=== PATIENT | female | born 1935 | race Caucasian/White ===

== ENCOUNTER 2017-09-20 09:09 | Inpatient (IN) | payer MEDICARE ==
[2017-09-20] MEDS ORDERED: Acetaminophen/HYDROcodone 325-5 MG Tab PO PRN ×3 (12:48→16:50)
--- NOTE | 2017-09-20 16:50 | PCM.HP ---
H&P History of Present Illness - General Date of Service: 09/20/17 Admit Problem/Dx: Admission Diagnosis/Problem Admission Diagnosis/Problem Rehabilitation therapy Source of Information: Patient, Other History Limitations: Reports: No Limitations - History of Present Illness Initial Comments - Free Text/Narative: This is an 81-year-old female patient had a left shoulder torn rotator cuff that was loose and a status post left total shoulder arthroplasty revision with conversion to left reversal total surgery arthroplasty. This is on the left shoulder. She was operated by Dr. Ramin Valencia. She transferred down here for rehabilitation. She was alone at not able to take her cell because of her arm. She states her pain is under control. Left arm is in a sling. She denies any issues today. Left Upper Shoulder Pain Score (Numeric/FACES): 0 - Related Data Allergies/Adverse Reactions: Allergies Allergy/AdvReac Type Severity Reaction Status Date / Time Penicillins Allergy Intermediate Headache Verified 08/07/13 19:09 oxycodone [Oxycodone] Allergy Mild Lethargy Verified 08/07/13 19:10 cyclobenzaprine HCl Allergy Ringing in Verified 03/27/14 16:06 [From Flexeril] the Ears Home Medications: Home Meds Escitalopram [Lexapro] 20 mg PO DAILY 03/27/14 [History] Furosemide [Lasix] 40 mg PO BID 03/27/14 [History] Gabapentin [Neurontin] 600 mg PO QID 03/27/14 [History] Latanoprost [Xalatan 0.005% Ophth Soln] 1 drop EYEBOTH BEDTIME 03/27/14 [History ] Multivitamin [Daily Vitamin] 1 each PO DAILY 03/27/14 [History] Potassium Chloride 10 meq PO BIDM 03/27/14 [History] Valsartan [Diovan] 80 mg PO DAILY 03/27/14 [History] Omeprazole 20 mg PO 0600 #30 cap.sr 04/09/14 [Rx] Acetaminophen [Tylenol Extra Strength] 500 mg PO QID PRN 09/20/17 [History] Allopurinol [Zyloprim] 100 mg PO DAILY 09/20/17 [History] Ascorbate Calcium [Vitamin C] 500 mg PO DAILY 09/20/17 [History] Aspirin [Halfprin] 81 mg PO DAILY 09/20/17 [History] Carisoprodol 350 mg PO BEDTIME 09/20/17 [History] Celecoxib [CeleBREX] 200 mg PO BID 09/20/17 [History] Cyanocobalamin (Vitamin B-12) [B-12] 1,000 mcg PO DAILY 09/20/17 [History] Enoxaparin [Lovenox] 80 mg SQ Q12H 09/20/17 [History] Hydrocodone/Acetaminophen [Hydrocodon-Acetaminophen 5-325] 1 each PO Q4H PRN [History] Hydrocodone/Acetaminophen [Hydrocodon-Acetaminophen 5-325] 2 tab PO Q4H PRN [History] Metoprolol Succinate [Toprol XL] 50 mg PO BID 09/20/17 [History] Polyethylene Glycol 3350 [MiraLAX] 17 gm PO DAILY 09/20/17 [History] Sennosides/Docusate Sodium [Senna S Tablet] 1 each PO BID 09/20/17 [History] Warfarin [Coumadin] 2 mg PO SUTUTHFRSA 09/20/17 [History] Warfarin [Coumadin] 3 mg PO MOWE 09/20/17 [History] traMADol [Ultram] 50 mg PO Q8H PRN 09/20/17 [History] traZODone 50 mg PO BEDTIME 09/20/17 [History] Past Medical History HEENT History: Reports: Cataract, Glaucoma, Hard of Hearing, Impaired Vision Cardiovascular History: Reports: Blood Clots/VTE/DVT, Hypertension, [place], SOB on Exertion Genitourinary History: Reports: Acute Renal Failure, Urinary Incontinence, Other (See Below) Other Genitourinary History: stage 3 kidney disease [employer] History: Reports: Fibroids, Musculoskeletal History: Reports: Arthritis, Back Pain, Chronic, Fibromyalgia, Gout, Osteoarthritis, Osteoporosis Psychiatric History: Reports: Depression, Panic Attack Endocrine/Metabolic History: Reports: Obesity/BMI 30+ Hematologic History: Reports: Anemia Dermatologic History: Reports: Angiodema - Infectious Disease History Infectious Disease History: Reports: Chicken Pox, Hepatitis A, Influenza, Measles, MRSA, Mumps, Rubella - Past Surgical History HEENT Surgical History: Reports: Cataract Surgery, Laser Surgery, Tonsillectomy Female Surgical History: Reports: Hysterectomy Musculoskeletal Surgical History: Reports: Arthroscopic Knee, Arthroscopic Procedure, Joint Replacement, Knee Replacement, Other (See Below) Other Musculoskeletal Surgeries/Procedures:: 5 TKR in left and 2TKR in right Social & Family History - Family History HEENT: Reports: Hearing Impairment Musculoskeletal: Reports: Arthritis, Back pain, Chronic, Fibromyalgia, Osteoarthritis, Osteoporosis Endocrine/Metabolic: Reports: Diabetes, type II Oncologic: Reports: Breast Other Oncologic Family History: Her mother had 4 out 6 girls with breast cancer. - Tobacco Use Smoking Status *Q: Never Smoker Second Hand Smoke Exposure: Yes - Caffeine Use Caffeine Use: Reports: Coffee - Alcohol Use Days Per Week of Alcohol Use: 0 - Recreational Drug Use Recreational Drug Use: No H&P Review of Systems - Review of Systems: Review Of Systems: See Below General: Reports: No Symptoms HEENT: Reports: No Symptoms Pulmonary: Reports: No Symptoms Cardiovascular: Reports: No Symptoms Gastrointestinal: Reports: No Symptoms Genitourinary: Reports: No Symptoms Musculoskeletal: Reports: Shoulder Pain Skin: Reports: No Symptoms Psychiatric: Reports: No Symptoms Neurological: Reports: No Symptoms Hematologic/Lymphatic: Reports: Easy Bleeding (On Coumadin) Immunologic: Reports: No Symptoms Exam - Exam Exam: See Below - Vital Signs Vital Signs: Last Vital Signs Temp 98.6 F 09/20/17 12:15 Pulse 66 09/20/17 12:15 Resp 16 09/20/17 12:15 BP 112/45 L 09/20/17 12:15 Pulse Ox 92 L 09/20/17 12:15 Weight: 221 lb - Exam General: Alert, Oriented, Cooperative HEENT: Hearing Intact, Mucosa Moist & [place], Posterior Pharynx Clear Neck: Supple, Trachea Midline. No: Carotid Bruit, JVD Lungs: Clear to Auscultation, Normal Respiratory Effort. No: Crackles, Rales, Rhonchi Cardiovascular: Regular Rate, Regular Rhythm. No: Systolic Murmur, Diastolic Murmur GI/Abdominal Exam: Normal Bowel Sounds, Soft, Non-Tender, No Organomegaly, No Distention, No Abnormal Bruit, No Mass Back Exam: Normal Inspection Extremities: Other (Left arm is in a shoulder immobilizer. Not examined.) Skin: Warm Neuro Extensive - Mental Status: Alert, Oriented x3, Normal Mood/Affect, Normal Cognition Psychiatric: Alert, Normal Affect, Normal Mood *Q Meaningful Use (ADM) - VTE *Q VTE Criteria *Q: - Stroke *Q Stroke Criteria *Q: - AMI *Q AMI Criteria *Q: - Problem List (1) Status post shoulder surgery SNOMED Code(s): 724752834, [id number] ICD Code: Z98.890 - OTHER SPECIFIED POSTPROCEDURAL STATES Status: Acute Current Visit: Yes Problem List Initiated/Reviewed/Updated: Yes Orders Last 24hrs: Active Orders 24 hr Category Date Time Status Admission Status [Patient Status] [ADT] Routine ADT 09/20/17 10:30 Active Activity as Tolerated [RC] .Routine Care 09/20/17 12:34 Active May Shower [RC] ASDIRECTED Care 09/21/17 06:00 Active Weight [Height and Weight] [RC] .qSun Care 09/20/17 13:42 Active Wound Care [RC] 08,16,00 Care 09/20/17 12:34 Active OT Evaluation and Treatment [CONS] Routine Cons 09/20/17 12:34 Active PT Evaluation and Treatment [CONS] Routine Cons 09/20/17 12:34 Active Regular Diet [DIET] Diet 09/20/17 Dinner Active Acetaminophen/HYDROcodone [Jackson 325-5 MG] Med 09/20/17 12:48 Active 1 tab PO Q3H PRN Acetaminophen/HYDROcodone [Jackson 325-5 MG] Med 09/20/17 12:49 Active 2 tab PO Q4H PRN Ice Therapy [OM.PC] Routine Oth 09/20/17 12:34 Ordered Medication Orders Hydrocodone Bitart/Acetaminophen (Jackson 325-5 Mg) 1 tab PO Q3H PRN PRN Reason: severe pain 0-3 Hydrocodone Bitart/Acetaminophen (Jackson 325-5 Mg) 2 tab PO Q4H PRN PRN Reason: Pain level 4-10 Assessment/Plan Comment:: Patient will be admitted to swing bed. She wants to be full code. Continue the same orders that she had a Valencia with her home medications and pain control with Tylenol and tramadol. She will have OT/PT.
[2017-09-20] MEDS ORDERED: Warfarin 2 MG Tab PO SCH (17:00)
[2017-09-20] MEDS: traMADol 50 MG Tab PO PRN (17:27)
[2017-09-20] MEDS: Furosemide 40 MG Tab PO SCH (17:27)
[2017-09-20] MEDS: Potassium Chloride 10 MEQ Tab.ER PO SCH (17:27)
[2017-09-20] MEDS: Gabapentin 600 MG Tab PO SCH ×2 (18:03→21:04)
[2017-09-20] MEDS: Acetaminophen/HYDROcodone 325-5 MG Tab PO PRN (21:03)
[2017-09-20] MEDS: Acetaminophen 500 MG Tab PO PRN (21:03)
[2017-09-20] MEDS: Metoprolol Succinate 50 MG Tab.ER PO SCH (21:05)
[2017-09-20] MEDS: Celecoxib 200 MG Cap PO SCH (21:06)
[2017-09-20] MEDS: traZODone 50 MG Tab PO SCH (21:07)
[2017-09-20] MEDS: Latanoprost 0.005% Ophth Soln 2.5 ML Bottle EYEBOTH SCH (21:08)
[2017-09-20] MEDS: Enoxaparin 80 MG/0.8 ML Syringe SUBCUT SCH (21:45)
[2017-09-21] MEDS: Pantoprazole 40 MG Tab.CR PO SCH (06:24)
[2017-09-21] MEDS: Potassium Chloride 10 MEQ Tab.ER PO SCH ×2 (08:12→17:14)
[2017-09-21] MEDS: Furosemide 40 MG Tab PO SCH ×2 (08:12→13:03)
[2017-09-21] MEDS: Ascorbic Acid 500 MG Tab PO SCH (08:21)
[2017-09-21] MEDS: Cyanocobalamin (Vitamin B12) 1,000 MCG Tab PO SCH (08:21)
[2017-09-21] MEDS: Allopurinol 100 MG Tab PO SCH (08:22)
[2017-09-21] MEDS: Celecoxib 200 MG Cap PO SCH ×2 (08:22→20:56)
[2017-09-21] MEDS: Escitalopram 20 MG Tab PO SCH (08:23)
[2017-09-21] MEDS: Gabapentin 600 MG Tab PO SCH ×4 (08:23→20:56)
[2017-09-21] MEDS: Aspirin 81 MG Tab.EC PO SCH (08:23)
[2017-09-21] MEDS: Metoprolol Succinate 50 MG Tab.ER PO SCH ×2 (08:24→20:57)
[2017-09-21] MEDS: Multivitamin Tab PO SCH (08:24)
[2017-09-21] MEDS: Polyethylene Glycol 3350 Powder 17 GM Packet PO SCH (08:28)
[2017-09-21] MEDS: traMADol 50 MG Tab PO PRN (08:35)
[2017-09-21] MEDS ORDERED: Warfarin Sliding Scale PO SCH (09:00)
[2017-09-21] MEDS: Enoxaparin 80 MG/0.8 ML Syringe SUBCUT SCH (14:43)
[2017-09-21] MEDS ORDERED: Warfarin 2 MG Tab PO SCH (16:00)
[2017-09-21] MEDS: Latanoprost 0.005% Ophth Soln 2.5 ML Bottle EYEBOTH SCH (20:56)
[2017-09-21] MEDS: traZODone 50 MG Tab PO SCH (20:56)
[2017-09-21] MEDS: Acetaminophen/HYDROcodone 325-5 MG Tab PO PRN (23:50)
[2017-09-22] MEDS: Pantoprazole 40 MG Tab.CR PO SCH (06:30)
[2017-09-22] MEDS: traMADol 50 MG Tab PO PRN ×2 (07:22→17:39)
[2017-09-22] MEDS: Potassium Chloride 10 MEQ Tab.ER PO SCH ×2 (07:29→17:39)
[2017-09-22] MEDS: Furosemide 40 MG Tab PO SCH ×2 (07:29→15:37)
[2017-09-22] MEDS: Celecoxib 200 MG Cap PO SCH ×2 (08:46→21:34)
[2017-09-22] MEDS: Escitalopram 20 MG Tab PO SCH (08:47)
[2017-09-22] MEDS: Aspirin 81 MG Tab.EC PO SCH (08:47)
[2017-09-22] MEDS: Multivitamin Tab PO SCH (08:48)
[2017-09-22] MEDS: Gabapentin 600 MG Tab PO SCH ×4 (08:48→21:34)
[2017-09-22] MEDS: Metoprolol Succinate 50 MG Tab.ER PO SCH ×2 (08:48→21:34)
[2017-09-22] MEDS: Cyanocobalamin (Vitamin B12) 1,000 MCG Tab PO SCH (08:49)
[2017-09-22] MEDS: Allopurinol 100 MG Tab PO SCH (08:49)
[2017-09-22] MEDS: Ascorbic Acid 500 MG Tab PO SCH (08:49)
[2017-09-22] MEDS: Polyethylene Glycol 3350 Powder 17 GM Packet PO SCH (10:44)
[2017-09-22] MEDS: Acetaminophen 500 MG Tab PO PRN ×2 (12:45→21:34)
[2017-09-22] MEDS: Warfarin 2 MG Tab PO SCH (16:13)
[2017-09-22] MEDS: Latanoprost 0.005% Ophth Soln 2.5 ML Bottle EYEBOTH SCH (21:15)
[2017-09-22] MEDS: traZODone 50 MG Tab PO SCH (21:34)
[2017-09-23] MEDS: Pantoprazole 40 MG Tab.CR PO SCH (06:27)
[2017-09-23] MEDS: traMADol 50 MG Tab PO PRN ×2 (06:59→17:02)
[2017-09-23] MEDS: Potassium Chloride 10 MEQ Tab.ER PO SCH ×2 (08:19→17:03)
[2017-09-23] MEDS: Furosemide 40 MG Tab PO SCH ×2 (08:19→13:51)
[2017-09-23] MEDS: Celecoxib 200 MG Cap PO SCH ×2 (09:07→20:28)
[2017-09-23] MEDS: Aspirin 81 MG Tab.EC PO SCH (09:08)
[2017-09-23] MEDS: Metoprolol Succinate 50 MG Tab.ER PO SCH ×2 (09:08→20:34)
[2017-09-23] MEDS: Gabapentin 600 MG Tab PO SCH ×4 (09:08→20:33)
[2017-09-23] MEDS: Escitalopram 20 MG Tab PO SCH (09:08)
[2017-09-23] MEDS: Multivitamin Tab PO SCH (09:08)
[2017-09-23] MEDS: Allopurinol 100 MG Tab PO SCH (09:09)
[2017-09-23] MEDS: Ascorbic Acid 500 MG Tab PO SCH (09:09)
[2017-09-23] MEDS: Polyethylene Glycol 3350 Powder 17 GM Packet PO SCH (09:09)
[2017-09-23] MEDS: Cyanocobalamin (Vitamin B12) 1,000 MCG Tab PO SCH (09:09)
--- NOTE | 2017-09-23 09:14 | PCM.PN ---
- General Info Date of Service: 09/23/17 Admission Dx/Problem (Free Text): Patient states she's doing well. She has no chest pain, fevers, chills, shortness of breath. Her left shoulder pain is controlled. She states she needs a different chair because if she doesn't get her left leg up occasionally starts to swell and that's normal for her. - Patient Data Vitals - Most Recent: Last Vital Signs Temp 97.9 F 09/22/17 07:31 Pulse 61 09/23/17 09:08 Resp 16 09/22/17 07:31 BP 146/82 H 09/23/17 09:08 Pulse Ox 93 L 09/22/17 07:31 Weight - Most Recent: 217 lb Lab Results Last 24 Hours: Laboratory Results - last 24 hr 09/23/17 Range/Units 06:50 PT 20.2 H (8.7-11.1) INR 1.97 H (0.89-1.13) Med Orders - Current: Current Medications Acetaminophen (Tylenol Extra Strength) 500 mg PO QID PRN PRN Reason: Pain (mild 1-3) Last Admin: 09/22/17 21:34 Dose: 500 mg Hydrocodone Bitart/Acetaminophen ([place] 325-5 Mg) 2 tab PO Q4H PRN PRN Reason: Pain (severe 7-10) Last Admin: 09/21/17 12:43 Dose: 2 tab Hydrocodone Bitart/Acetaminophen ([place] 325-5 Mg) 1 tab PO Q4H PRN PRN Reason: Pain (moderate 4-6) Last Admin: 09/21/17 23:50 Dose: 1 tab Allopurinol (Zyloprim) 100 mg PO DAILY [facility] Last Admin: 09/23/17 09:09 Dose: 100 mg Ascorbic Acid (Vitamin C) 500 mg PO DAILY [facility] Last Admin: 09/23/17 09:09 Dose: 500 mg Aspirin (Halfprin) 81 mg PO DAILY [facility] Last Admin: 09/23/17 09:08 Dose: 81 mg Carisoprodol (Soma) 350 mg PO BEDTIME [facility] Last Admin: 09/22/17 21:34 Dose: 350 mg Celecoxib (Celebrex) 200 mg PO BID [facility] Last Admin: 09/23/17 09:07 Dose: 200 mg Cyanocobalamin (Vitamin B12) 1,000 mcg PO DAILY [facility] Last Admin: 10/23/17 09:09 Dose: 1,000 mcg Escitalopram Oxalate (Lexapro) 20 mg PO DAILY [facility] Last Admin: 09/23/17 09:08 Dose: 20 mg Furosemide (Lasix) 40 mg PO BIDDIURETIC [facility] Last Admin: 09/23/17 08:19 Dose: 40 mg Gabapentin (Neurontin) 600 mg PO QID [facility] Last Admin: 09/23/17 09:08 Dose: 600 mg Latanoprost (Xalatan 0.005% Ophth Soln) 0 ml EYEBOTH BEDTIME [facility] Last Admin: 09/22/17 21:15 Dose: 1 drop Metoprolol Succinate (Toprol Xl) 50 mg PO BID [facility] Last Admin: 09/23/17 09:08 Dose: 50 mg Multivitamins/Minerals/Vitamin C (Tab-A-Terry) 1 tab PO DAILY [facility] Last Admin: 09/23/17 09:08 Dose: 1 tab Pantoprazole Sodium (Protonix) 40 mg PO 0600 [facility] Last Admin: 09/23/17 06:27 Dose: 40 mg Polyethylene Glycol (Miralax) 17 gm PO DAILY [facility] Last Admin: 09/23/17 09:09 Dose: Not Given Potassium Chloride (Klor-Con 10) 10 meq PO BIDM [facility] Last Admin: 09/23/17 08:19 Dose: 10 meq Senna/Docusate Sodium (Senna Plus) 1 tab PO BID [facility] Last Admin: 09/23/17 09:09 Dose: Not Given Tramadol HCl (Ultram) 50 mg PO Q8H PRN PRN Reason: Pain (moderate 4-6) Last Admin: 09/23/17 06:59 Dose: 50 mg Trazodone HCl (Trazodone) 50 mg PO BEDTIME [facility] Last Admin: 09/22/17 21:34 Dose: 50 mg Valsartan (Diovan) 80 mg PO DAILY [facility] Last Admin: 09/23/17 09:07 Dose: 80 mg Warfarin Sodium (Coumadin) 3 mg PO MOWE [facility] Warfarin Sodium (Coumadin Sliding Scale) 1 each PO DAILY [facility] Warfarin Sodium (Coumadin) 2 mg PO SuTuThFrSa@1600 [facility] Last Admin: 09/22/17 16:13 Dose: 2 mg Discontinued Medications Hydrocodone Bitart/Acetaminophen ([place] 325-5 Mg) 1 tab PO Q3H PRN PRN Reason: severe pain 0-3 Hydrocodone Bitart/Acetaminophen ([place] 325-5 Mg) 2 tab PO Q4H PRN PRN Reason: Pain level 4-10 Enoxaparin Sodium (Lovenox) 80 mg SUBCUT Q12H [facility] Last Admin: 09/21/17 14:43 Dose: Not Given Warfarin Sodium (Coumadin) 2 mg PO SuTuThFrSa@1600 [facility] Warfarin Sodium (Coumadin) Confirm Administered Dose 2 mg .ROUTE .STK-MED ONE Stop: 09/21/17 15:32 Last Admin: 09/21/17 15:38 Dose: Not Given Warfarin Sodium (Coumadin) 2 mg PO SuTuThFrSa@1600 [facility] Last Admin: 09/21/17 15:39 Dose: 2 mg - Exam General: Alert, Oriented Lungs: Clear to Auscultation, Normal Respiratory Effort Cardiovascular: Regular Rate, Regular Rhythm, No Murmurs Extremities: No Pedal Edema, Other (Left shoulder and arm in sling or not removed.) - Problem List & Annotations (1) Status post shoulder surgery SNOMED Code(s): 926226109, 360138430 Code(s): Z98.890 - OTHER SPECIFIED POSTPROCEDURAL STATES Status: Acute Current Visit: Yes - Problem List Review Problem List Initiated/Reviewed/Updated: Yes - My Orders Last 24 Hours: My Active Orders 09/22/17 16:00 Warfarin [Coumadin] 2 mg PO SuTuThFrSa@1600 09/23/17 16:00 Warfarin [Coumadin] 3 mg PO MOWE 09/24/17 06:00 INR,PT,PROTHROMBIN TIME [COAG] DAILY - Plan Plan:: 1. Continue current care at PT/OT. 2. Continue INR because of history of PE and DVT. Pharmacy to manage INR.
[2017-09-23] MEDS: Warfarin 3 MG Tab PO SCH (15:51)
[2017-09-23] MEDS: traZODone 50 MG Tab PO SCH (20:33)
[2017-09-23] MEDS: Latanoprost 0.005% Ophth Soln 2.5 ML Bottle EYEBOTH SCH (20:34)
[2017-09-24] MEDS: Pantoprazole 40 MG Tab.CR PO SCH (06:09)
[2017-09-24] MEDS: traMADol 50 MG Tab PO PRN (08:52)
[2017-09-24] MEDS: Furosemide 40 MG Tab PO SCH ×2 (08:55→13:40)
[2017-09-24] MEDS: Potassium Chloride 10 MEQ Tab.ER PO SCH ×2 (08:55→17:06)
[2017-09-24] MEDS: Celecoxib 200 MG Cap PO SCH ×2 (08:55→20:11)
[2017-09-24] MEDS: Aspirin 81 MG Tab.EC PO SCH (08:56)
[2017-09-24] MEDS: Escitalopram 20 MG Tab PO SCH (08:57)
[2017-09-24] MEDS: Gabapentin 600 MG Tab PO SCH ×4 (08:57→20:10)
[2017-09-24] MEDS: Multivitamin Tab PO SCH (08:57)
[2017-09-24] MEDS: Polyethylene Glycol 3350 Powder 17 GM Packet PO SCH (08:57)
[2017-09-24] MEDS: Cyanocobalamin (Vitamin B12) 1,000 MCG Tab PO SCH (08:58)
[2017-09-24] MEDS: Ascorbic Acid 500 MG Tab PO SCH (08:58)
[2017-09-24] MEDS: Allopurinol 100 MG Tab PO SCH (08:58)
[2017-09-24] MEDS: Metoprolol Succinate 50 MG Tab.ER PO SCH ×2 (08:58→20:11)
[2017-09-24] MEDS: Acetaminophen 500 MG Tab PO PRN (13:20)
[2017-09-24] MEDS: Warfarin 2 MG Tab PO SCH (17:05)
[2017-09-24] MEDS: traZODone 50 MG Tab PO SCH (20:10)
[2017-09-24] MEDS: Latanoprost 0.005% Ophth Soln 2.5 ML Bottle EYEBOTH SCH (20:12)
[2017-09-25] MEDS: Pantoprazole 40 MG Tab.CR PO SCH (05:56)
[2017-09-25] MEDS: traMADol 50 MG Tab PO PRN ×2 (06:54→20:48)
[2017-09-25] MEDS: Celecoxib 200 MG Cap PO SCH ×2 (08:49→20:42)
[2017-09-25] MEDS: Potassium Chloride 10 MEQ Tab.ER PO SCH ×2 (08:49→17:41)
[2017-09-25] MEDS: Furosemide 40 MG Tab PO SCH ×2 (08:49→13:16)
[2017-09-25] MEDS: Aspirin 81 MG Tab.EC PO SCH (08:50)
[2017-09-25] MEDS: Polyethylene Glycol 3350 Powder 17 GM Packet PO SCH (08:50)
[2017-09-25] MEDS: Gabapentin 600 MG Tab PO SCH ×4 (08:50→20:43)
[2017-09-25] MEDS: Escitalopram 20 MG Tab PO SCH (08:50)
[2017-09-25] MEDS: Metoprolol Succinate 50 MG Tab.ER PO SCH ×2 (08:51→20:43)
[2017-09-25] MEDS: Multivitamin Tab PO SCH (08:51)
[2017-09-25] MEDS: Ascorbic Acid 500 MG Tab PO SCH (08:52)
[2017-09-25] MEDS: Allopurinol 100 MG Tab PO SCH (08:52)
[2017-09-25] MEDS: Cyanocobalamin (Vitamin B12) 1,000 MCG Tab PO SCH (08:52)
[2017-09-25] MEDS: Warfarin 3 MG Tab PO SCH (17:41)
[2017-09-25] MEDS: Latanoprost 0.005% Ophth Soln 2.5 ML Bottle EYEBOTH SCH (20:47)
[2017-09-25] MEDS: traZODone 50 MG Tab PO SCH (20:47)
[2017-09-26] MEDS: Pantoprazole 40 MG Tab.CR PO SCH (06:16)
[2017-09-26] MEDS: Potassium Chloride 10 MEQ Tab.ER PO SCH ×2 (08:36→17:25)
[2017-09-26] MEDS: Celecoxib 200 MG Cap PO SCH ×2 (08:36→20:52)
[2017-09-26] MEDS: Allopurinol 100 MG Tab PO SCH (08:36)
[2017-09-26] MEDS: Aspirin 81 MG Tab.EC PO SCH (08:36)
[2017-09-26] MEDS: Gabapentin 600 MG Tab PO SCH ×4 (08:36→20:52)
[2017-09-26] MEDS: Escitalopram 20 MG Tab PO SCH (08:36)
[2017-09-26] MEDS: Cyanocobalamin (Vitamin B12) 1,000 MCG Tab PO SCH (08:36)
[2017-09-26] MEDS: Ascorbic Acid 500 MG Tab PO SCH (08:36)
[2017-09-26] MEDS: Furosemide 40 MG Tab PO SCH ×2 (08:37→14:09)
[2017-09-26] MEDS: Metoprolol Succinate 50 MG Tab.ER PO SCH ×2 (08:37→20:54)
[2017-09-26] MEDS: Multivitamin Tab PO SCH (08:37)
[2017-09-26] MEDS: Polyethylene Glycol 3350 Powder 17 GM Packet PO SCH (09:22)
[2017-09-26] MEDS: traMADol 50 MG Tab PO PRN ×2 (09:22→17:25)
[2017-09-26] MEDS: Acetaminophen 500 MG Tab PO PRN ×2 (11:29→21:02)
[2017-09-26] MEDS: Warfarin 2 MG Tab PO SCH (16:34)
[2017-09-26] MEDS: Latanoprost 0.005% Ophth Soln 2.5 ML Bottle EYEBOTH SCH (20:56)
[2017-09-26] MEDS: traZODone 50 MG Tab PO SCH (20:56)
[2017-09-27] MEDS: Pantoprazole 40 MG Tab.CR PO SCH (05:54)
[2017-09-27] MEDS: traMADol 50 MG Tab PO PRN (08:13)
[2017-09-27] MEDS: Potassium Chloride 10 MEQ Tab.ER PO SCH ×2 (08:16→17:04)
[2017-09-27] MEDS: Furosemide 40 MG Tab PO SCH ×2 (08:17→15:19)
[2017-09-27] MEDS: Celecoxib 200 MG Cap PO SCH ×2 (08:17→20:48)
[2017-09-27] MEDS: Aspirin 81 MG Tab.EC PO SCH (08:18)
[2017-09-27] MEDS: Polyethylene Glycol 3350 Powder 17 GM Packet PO SCH (08:18)
[2017-09-27] MEDS: Gabapentin 600 MG Tab PO SCH ×4 (08:18→20:48)
[2017-09-27] MEDS: Escitalopram 20 MG Tab PO SCH (08:18)
[2017-09-27] MEDS: Metoprolol Succinate 50 MG Tab.ER PO SCH ×2 (08:19→20:49)
[2017-09-27] MEDS: Multivitamin Tab PO SCH (08:19)
[2017-09-27] MEDS: Cyanocobalamin (Vitamin B12) 1,000 MCG Tab PO SCH (08:19)
[2017-09-27] MEDS: Allopurinol 100 MG Tab PO SCH (08:19)
[2017-09-27] MEDS: Ascorbic Acid 500 MG Tab PO SCH (08:19)
[2017-09-27] MEDS: Acetaminophen 500 MG Tab PO PRN (13:20)
[2017-09-27] MEDS: Warfarin 2 MG Tab PO SCH (16:48)
[2017-09-27] MEDS: Latanoprost 0.005% Ophth Soln 2.5 ML Bottle EYEBOTH SCH (20:44)
[2017-09-27] MEDS: traZODone 50 MG Tab PO SCH (20:50)
[2017-09-28] MEDS: Pantoprazole 40 MG Tab.CR PO SCH (07:00)
[2017-09-28] MEDS: Furosemide 40 MG Tab PO SCH ×2 (08:13→14:08)
[2017-09-28] MEDS: Potassium Chloride 10 MEQ Tab.ER PO SCH ×2 (08:13→17:18)
[2017-09-28] MEDS: Celecoxib 200 MG Cap PO SCH ×2 (08:14→20:33)
[2017-09-28] MEDS: Aspirin 81 MG Tab.EC PO SCH (08:15)
[2017-09-28] MEDS: Escitalopram 20 MG Tab PO SCH (08:15)
[2017-09-28] MEDS: Metoprolol Succinate 50 MG Tab.ER PO SCH ×2 (08:16→20:36)
[2017-09-28] MEDS: Gabapentin 600 MG Tab PO SCH ×4 (08:16→20:34)
[2017-09-28] MEDS: Multivitamin Tab PO SCH (08:16)
[2017-09-28] MEDS: Ascorbic Acid 500 MG Tab PO SCH (08:16)
[2017-09-28] MEDS: Allopurinol 100 MG Tab PO SCH (08:18)
[2017-09-28] MEDS: Cyanocobalamin (Vitamin B12) 1,000 MCG Tab PO SCH (08:18)
[2017-09-28] MEDS: Polyethylene Glycol 3350 Powder 17 GM Packet PO SCH (08:19)
[2017-09-28] MEDS: traMADol 50 MG Tab PO PRN ×2 (11:18→20:33)
[2017-09-28] MEDS: Warfarin 2 MG Tab PO SCH (17:18)
[2017-09-28] MEDS: Latanoprost 0.005% Ophth Soln 2.5 ML Bottle EYEBOTH SCH (20:36)
[2017-09-28] MEDS: traZODone 50 MG Tab PO SCH (20:37)
[2017-09-29] MEDS: Pantoprazole 40 MG Tab.CR PO SCH (06:09)
[2017-09-29] MEDS: traMADol 50 MG Tab PO PRN ×2 (06:15→20:29)
[2017-09-29] MEDS: Celecoxib 200 MG Cap PO SCH ×2 (08:36→20:29)
[2017-09-29] MEDS: Potassium Chloride 10 MEQ Tab.ER PO SCH ×2 (08:36→16:59)
[2017-09-29] MEDS: Furosemide 40 MG Tab PO SCH ×2 (08:36→13:29)
[2017-09-29] MEDS: Escitalopram 20 MG Tab PO SCH (08:37)
[2017-09-29] MEDS: Gabapentin 600 MG Tab PO SCH ×4 (08:37→20:29)
[2017-09-29] MEDS: Polyethylene Glycol 3350 Powder 17 GM Packet PO SCH (08:37)
[2017-09-29] MEDS: Aspirin 81 MG Tab.EC PO SCH (08:37)
[2017-09-29] MEDS: Metoprolol Succinate 50 MG Tab.ER PO SCH ×2 (08:38→20:30)
[2017-09-29] MEDS: Ascorbic Acid 500 MG Tab PO SCH (08:38)
[2017-09-29] MEDS: Multivitamin Tab PO SCH (08:38)
[2017-09-29] MEDS: Cyanocobalamin (Vitamin B12) 1,000 MCG Tab PO SCH (08:38)
[2017-09-29] MEDS: Allopurinol 100 MG Tab PO SCH (08:39)
[2017-09-29] MEDS: Warfarin 2 MG Tab PO SCH (16:58)
[2017-09-29] MEDS: traZODone 50 MG Tab PO SCH (20:30)
[2017-09-29] MEDS: Latanoprost 0.005% Ophth Soln 2.5 ML Bottle EYEBOTH SCH (20:30)
[2017-09-30] MEDS: Pantoprazole 40 MG Tab.CR PO SCH (05:11)
[2017-09-30] MEDS: Furosemide 40 MG Tab PO SCH ×2 (08:40→14:06)
[2017-09-30] MEDS: Potassium Chloride 10 MEQ Tab.ER PO SCH ×2 (08:40→16:59)
[2017-09-30] MEDS: Celecoxib 200 MG Cap PO SCH ×2 (08:40→21:33)
[2017-09-30] MEDS: Aspirin 81 MG Tab.EC PO SCH (08:41)
[2017-09-30] MEDS: Escitalopram 20 MG Tab PO SCH (08:41)
[2017-09-30] MEDS: Ascorbic Acid 500 MG Tab PO SCH (08:42)
[2017-09-30] MEDS: Multivitamin Tab PO SCH (08:42)
[2017-09-30] MEDS: Gabapentin 600 MG Tab PO SCH ×4 (08:42→21:33)
[2017-09-30] MEDS: Allopurinol 100 MG Tab PO SCH (08:43)
[2017-09-30] MEDS: Polyethylene Glycol 3350 Powder 17 GM Packet PO SCH (08:43)
[2017-09-30] MEDS: Metoprolol Succinate 50 MG Tab.ER PO SCH ×2 (08:55→21:35)
[2017-09-30] MEDS: Cyanocobalamin (Vitamin B12) 1,000 MCG Tab PO SCH (08:56)
[2017-09-30] MEDS: Acetaminophen 500 MG Tab PO PRN ×2 (10:03→18:40)
[2017-09-30] MEDS: Warfarin 3 MG Tab PO SCH (16:58)
[2017-09-30] MEDS: Latanoprost 0.005% Ophth Soln 2.5 ML Bottle EYEBOTH SCH (21:35)
[2017-09-30] MEDS: traZODone 50 MG Tab PO SCH (21:35)
[2017-10-01] MEDS: Pantoprazole 40 MG Tab.CR PO SCH (07:00)
[2017-10-01] MEDS: traMADol 50 MG Tab PO PRN (07:00)
[2017-10-01] MEDS: Aspirin 81 MG Tab.EC PO SCH (08:30)
[2017-10-01] MEDS: Celecoxib 200 MG Cap PO SCH ×2 (08:30→20:50)
[2017-10-01] MEDS: Allopurinol 100 MG Tab PO SCH (08:30)
[2017-10-01] MEDS: Furosemide 40 MG Tab PO SCH ×2 (08:30→13:16)
[2017-10-01] MEDS: Cyanocobalamin (Vitamin B12) 1,000 MCG Tab PO SCH (08:30)
[2017-10-01] MEDS: Metoprolol Succinate 50 MG Tab.ER PO SCH ×2 (08:30→20:50)
[2017-10-01] MEDS: Escitalopram 20 MG Tab PO SCH (08:30)
[2017-10-01] MEDS: Ascorbic Acid 500 MG Tab PO SCH (08:30)
[2017-10-01] MEDS: Gabapentin 600 MG Tab PO SCH ×4 (08:30→20:50)
[2017-10-01] MEDS: Potassium Chloride 10 MEQ Tab.ER PO SCH ×2 (08:30→18:12)
[2017-10-01] MEDS: Multivitamin Tab PO SCH (08:31)
[2017-10-01] MEDS: Polyethylene Glycol 3350 Powder 17 GM Packet PO SCH (09:04)
[2017-10-01] MEDS: Warfarin 2 MG Tab PO SCH (16:31)
[2017-10-01] MEDS: traZODone 50 MG Tab PO SCH (20:50)
[2017-10-01] MEDS: Latanoprost 0.005% Ophth Soln 2.5 ML Bottle EYEBOTH SCH (20:50)
[2017-10-01] MEDS: Acetaminophen 500 MG Tab PO PRN (21:38)
[2017-10-02] MEDS: Pantoprazole 40 MG Tab.CR PO SCH (05:58)
[2017-10-02] MEDS: Furosemide 40 MG Tab PO SCH ×2 (08:47→13:20)
[2017-10-02] MEDS: Potassium Chloride 10 MEQ Tab.ER PO SCH ×2 (08:48→17:57)
[2017-10-02] MEDS: Celecoxib 200 MG Cap PO SCH ×2 (08:57→21:24)
[2017-10-02] MEDS: Escitalopram 20 MG Tab PO SCH (08:57)
[2017-10-02] MEDS: Aspirin 81 MG Tab.EC PO SCH (08:57)
[2017-10-02] MEDS: Gabapentin 600 MG Tab PO SCH ×4 (08:57→21:24)
[2017-10-02] MEDS: Multivitamin Tab PO SCH (08:57)
[2017-10-02] MEDS: Cyanocobalamin (Vitamin B12) 1,000 MCG Tab PO SCH (08:58)
[2017-10-02] MEDS: Acetaminophen 500 MG Tab PO PRN ×2 (08:58→23:11)
[2017-10-02] MEDS: Allopurinol 100 MG Tab PO SCH (08:58)
[2017-10-02] MEDS: Ascorbic Acid 500 MG Tab PO SCH (08:58)
[2017-10-02] MEDS: Polyethylene Glycol 3350 Powder 17 GM Packet PO SCH (09:00)
[2017-10-02] MEDS: Metoprolol Succinate 50 MG Tab.ER PO SCH ×2 (09:03→21:24)
[2017-10-02] MEDS: Warfarin 3 MG Tab PO SCH (17:00)
[2017-10-02] MEDS: Latanoprost 0.005% Ophth Soln 2.5 ML Bottle EYEBOTH SCH (21:29)
[2017-10-02] MEDS: traZODone 50 MG Tab PO SCH (21:29)
[2017-10-03] MEDS: Pantoprazole 40 MG Tab.CR PO SCH (06:35)
[2017-10-03] MEDS: traMADol 50 MG Tab PO PRN (08:24)
[2017-10-03] MEDS: Potassium Chloride 10 MEQ Tab.ER PO SCH (08:25)
[2017-10-03] MEDS: Furosemide 40 MG Tab PO SCH (08:26)
[2017-10-03] MEDS: Celecoxib 200 MG Cap PO SCH (08:26)
[2017-10-03] MEDS: Polyethylene Glycol 3350 Powder 17 GM Packet PO SCH (08:27)
[2017-10-03] MEDS: Escitalopram 20 MG Tab PO SCH (08:27)
[2017-10-03] MEDS: Aspirin 81 MG Tab.EC PO SCH (08:27)
[2017-10-03] MEDS: Multivitamin Tab PO SCH (08:28)
[2017-10-03] MEDS: Gabapentin 600 MG Tab PO SCH (08:28)
[2017-10-03] MEDS: Metoprolol Succinate 50 MG Tab.ER PO SCH (08:28)
[2017-10-03] MEDS: Allopurinol 100 MG Tab PO SCH (08:29)
[2017-10-03] MEDS: Ascorbic Acid 500 MG Tab PO SCH (08:29)
[2017-10-03] MEDS: Cyanocobalamin (Vitamin B12) 1,000 MCG Tab PO SCH (08:29)
[2017-10-03 08:30] VITALS: BP 123/57
--- NOTE | 2017-10-04 00:45 | DISCH ---
DISCHARGE DATE: 10/03/2017 REASON FOR ADMISSION: Status post left shoulder surgery. DISCHARGE DIAGNOSES: 1. Status post left shoulder surgery. 2. History of pulmonary embolism and deep vein thrombosis. 3. Long-term anticoagulation. 4. Fibromyalgia. 5. Hypertension. BRIEF HISTORY: This is an 81-year-old female who was admitted at [facility] for shoulder surgery, which was accomplished on September 17. She was discharged on the for rehab. She has done well postoperatively and is ready to go home today. DISCHARGE MEDICATIONS: She will go home on previous home medications with the exception of Celebrex 200 mg daily twice a day and the Coumadin dose was changed for INR. She will have a repeat INR on Saturday. I spent more than 35 minutes in the discharge of the patient. /[id number] KIRAN/ERICA
== END 2017-10-03 09:55 | disposition home or self-care (01) | DRG 561 ==
LOC: FB.MS 11:52
PROVIDERS: ADMIT Family Medicine; ATTEND Family Medicine
DX: Z47.1 Aftercare following joint replacement surgery (principal); Z98.890 Other specified postprocedural states; Z96.612 Presence of left artificial shoulder joint; Z96.653 Presence of artificial knee joint, bilateral; I12.9 Hypertensive chronic kidney disease with stage 1 through stage 4 chronic kidney disease, or unspecified chronic kidney disease; N18.3 Chronic kidney disease, stage 3 (moderate); H40.9 Unspecified glaucoma; Z86.718 Personal history of other venous thrombosis and embolism; I25.2 Old myocardial infarction; M19.90 Unspecified osteoarthritis, unspecified site; M54.9 Dorsalgia, unspecified; G89.29 Other chronic pain; M79.7 Fibromyalgia; M10.9 Gout, unspecified; Z86.14 Personal history of Methicillin resistant Staphylococcus aureus infection; F42.9 Obsessive-compulsive disorder, unspecified; F41.9 Anxiety disorder, unspecified; Z79.82 Long term (current) use of aspirin; Z79.01 Long term (current) use of anticoagulants; Z88.5 Allergy status to narcotic agent; Z88.0 Allergy status to penicillin; Z88.8 Allergy status to other drugs, medicaments and biological substances; Z86.711 Personal history of pulmonary embolism
CPT/HCPCS: 36415; 36416; 85049; 85610; 97110-GO; 97116-GP; 97161-GP; 97165-GO; 97530-GO-KX; 97530-GP; 97535-GO; A9270-GY; J1650

== ENCOUNTER 2018-04-24 10:51 | Emergency (ER) | payer MEDICARE ==
--- NOTE | 2018-04-24 13:55 | EDM.PDOC ---
ED HPI GENERAL MEDICAL PROBLEM - General Chief Complaint: Upper Extremity Injury/Pain Stated Complaint: LEFT ARM PAIN Time Seen by Provider: 04/24/18 11:00 Source of Information: Reports: Patient History Limitations: Reports: No Limitations - History of Present Illness INITIAL COMMENTS - FREE TEXT/NARRATIVE: c/o LUE pain x 4w pt with chronic pain in her L shoulder, she has had several surgeries on her shoulder including replacement x 2, last replacement 09/17 in [facility] with Dr Shetty whom she saw 2w ago has been getting PT 3x/wk, was there this AM and PT did u/s of the LUE for her chronic pain, she went to visit her in the [place] and had more pain and comes here takes Soma at night, cannot take during the day, does not tolerate Flexeril her daughter form 45 min away is here PCP is Christina Browning and Dr Frederick d-dimer inc'd, however u/s neg, d-dimer appears to be an inflammatory marker on warfarin x 10y after LLE DVT and PE after L knee surgery 10yt ago, has had L knee surgery x 5 including replacement x 3 pt has known DJD, pt does not know whether she has an inflammatory arthritide labs here essentially unchanged in 4y, trop and EKG are wnl, INR 2.35 and therapeutic left arm Pain Score (Numeric/FACES): 5 - Related Data Allergies Allergy/AdvReac Type Severity Reaction Status Date / Time Penicillins Allergy Intermediate Headache Verified 04/24/18 11:17 oxycodone [Oxycodone] Allergy Mild Lethargy Verified 04/24/18 11:17 cyclobenzaprine HCl Allergy Ringing in Verified 04/24/18 11:17 [From Flexeril] the Ears Home Meds: Home Meds Escitalopram [Lexapro] 20 mg PO DAILY 03/27/14 [History] Furosemide [Lasix] 40 mg PO BID 03/27/14 [History] Gabapentin [Neurontin] 600 mg PO QID 03/27/14 [History] Latanoprost [Xalatan 0.005% Ophth Soln] 1 drop EYEBOTH BEDTIME 03/27/14 [History ] Multivitamin [Daily Vitamin] 1 each PO DAILY 03/27/14 [History] Potassium Chloride 10 meq PO BIDM 03/27/14 [History] Valsartan [Diovan] 80 mg PO DAILY 03/27/14 [History] Omeprazole 20 mg PO 0600 #30 cap.sr 04/09/14 [Rx] Acetaminophen [Tylenol Extra Strength] 500 mg PO QID PRN 09/20/17 [History] Allopurinol [Zyloprim] 100 mg PO DAILY 09/20/17 [History] Ascorbate Calcium [Vitamin C] 500 mg PO DAILY 09/20/17 [History] Aspirin [Halfprin] 81 mg PO DAILY 09/20/17 [History] Carisoprodol 350 mg PO BEDTIME 09/20/17 [History] Cyanocobalamin (Vitamin B-12) [B-12] 1,000 mcg PO DAILY 09/20/17 [History] Metoprolol Succinate [Toprol XL] 50 mg PO BID 09/20/17 [History] traMADol [Ultram] 50 mg PO Q8H PRN 09/20/17 [History] traZODone 50 mg PO BEDTIME 09/20/17 [History] Celecoxib [CeleBREX] 200 mg PO BID #60 cap 10/03/17 [Rx] Warfarin [Coumadin] 2 mg PO SUTUTHFRSA 04/24/18 [History] Warfarin [Coumadin] 3 mg PO MOWE 04/24/18 [History] Past Medical History HEENT History: Reports: Cataract, Glaucoma, Hard of Hearing, Impaired Vision Cardiovascular History: Reports: Blood Clots/VTE/DVT, Hypertension, [place], SOB on Exertion Genitourinary History: Reports: Acute Renal Failure, Urinary Incontinence, Other (See Below) Other Genitourinary History: stage 3 kidney disease ZANJERO History: Reports: Fibroids, Musculoskeletal History: Reports: Arthritis, Back Pain, Chronic, Fibromyalgia, Gout, Osteoarthritis, Osteoporosis Psychiatric History: Reports: Depression, Panic Attack Endocrine/Metabolic History: Reports: Obesity/BMI 30+ Hematologic History: Reports: Anemia Dermatologic History: Reports: Angiodema - Infectious Disease History Infectious Disease History: Reports: Chicken Pox, Hepatitis A, Influenza, Measles, MRSA, Mumps, Rubella - Past Surgical History HEENT Surgical History: Reports: Cataract Surgery, Laser Surgery, Tonsillectomy Female Surgical History: Reports: Hysterectomy Musculoskeletal Surgical History: Reports: Arthroscopic Knee, Arthroscopic Procedure, Joint Replacement, Knee Replacement, Other (See Below) Other Musculoskeletal Surgeries/Procedures:: 5 TKR in left and 2TKR in right Social & Family History - Family History Family Medical History: Noncontributory HEENT: Reports: Hearing Impairment Musculoskeletal: Reports: Arthritis, Back pain, Chronic, Fibromyalgia, Osteoarthritis, Osteoporosis Endocrine/Metabolic: Reports: Diabetes, type II Oncologic: Reports: Breast Other Oncologic Family History: Her mother had 4 out 6 girls with breast cancer. - Tobacco Use Smoking Status *Q: Never Smoker Second Hand Smoke Exposure: Yes - Caffeine Use Caffeine Use: Reports: Coffee, Soda, Tea - Recreational Drug Use Recreational Drug Use: No Review of Systems - Review of Systems Review Of Systems: See Below Constitutional: Reports: No Symptoms Eyes: Reports: No Symptoms Ears: Reports: No Symptoms Nose: Reports: No Symptoms Mouth/Throat: Reports: No Symptoms Respiratory: Reports: No Symptoms Cardiovascular: Reports: No Symptoms GI/Abdominal: Reports: No Symptoms Genitourinary: Reports: No Symptoms Musculoskeletal: Reports: Arm Pain Skin: Reports: No Symptoms Neurological: Reports: No Symptoms Psychiatric: Reports: No Symptoms ED EXAM, GENERAL - Physical Exam Exam: See Below Exam Limited By: No Limitations General Appearance: Alert, WD/WN, No Apparent Distress Respiratory/Chest: Lungs Clear, Normal Breath Sounds Cardiovascular: Regular Rate, Rhythm, No Gallop, No Rub, Other (2/6 OLENA at LSB, quiet precordium) GI/Abdominal: Soft, Non-Tender, No Distention, No Mass Back Exam: Normal Inspection, Full Range of Motion, NT Extremities: Other (no swelling of left hand/forearm, 1+ tender over the muscle lateraly below the shoulder joint, no ecchymosis, no visible swell, no pitting edema, resists flex/abduction beyond 90 degrees d/t discomfort in muscle) Course - Vital Signs Last Recorded V/S: Last Vital Signs Temp 36.7 C 04/24/18 11:05 Pulse 66 04/24/18 11:05 Resp 14 04/24/18 11:05 BP 153/63 H 04/24/18 11:05 Pulse Ox 95 04/24/18 11:05 - Orders/Labs/Meds Orders: Active Orders 24 hr Category Date Time Status VL Duplex Upr Ext Veins Ltd Lt [US] Stat Exams 04/24/18 12:40 Taken URINALYSIS W/MICROSCOPIC [UA W/MICROSCOPIC] [URIN] Stat Lab 04/24/18 12:09 Ordered Labs: Laboratory Tests 04/24/18 04/24/18 04/24/18 Range/Units 11:30 11:30 11:30 WBC 4.4 L (4.5-12.0) X10-3/uL RBC 3.49 (3.23-5.20) x10(6)uL Hgb 11.3 L (11.5-15.5) g/dL Hct 34.2 (30.0-51.3) % MCV 98.0 H (80-96) fL MCH 32.4 (27.7-33.6) pg MCHC 33.0 (32.2-35.4) g/dL RDW 14.1 (11.5-15.5) % Plt Count 151 (125-369) X10(3)uL MPV 8.1 (7.4-10.4) fL Neut % (Auto) 63.4 (46-82) % Lymph % (Auto) 20.9 (13-37) % Robertson % (Auto) 8.6 (4-12) % Eos % (Auto) 6 H (1.0-5.0) % Baso % (Auto) 1 (0-2) % Neut # (Auto) 2.8 (1.6-8.3) # Lymph # (Auto) 0.9 (0.6-5.0) # Robertson # (Auto) 0.4 (0.0-1.3) # Eos # (Auto) 0.3 (0.0-0.8) # Baso # (Auto) 0.0 (0.0-0.2) # PT 22.6 H (8.7-11.1) INR 2.35 H (0.89-1.13) D-Dimer, Quantitative 3.00 H (0.0-0.59) mg/LFEU Sodium (135-145) mmol/L Potassium (3.5-5.3) mmol/L Chloride (100-110) mmol/L Carbon Dioxide (21-32) mmol/L BUN (7-18) mg/dL Creatinine (0.55-1.02) mg/dL Est Cr Clr Drug Dosing mL/min Estimated GFR (MDRD) (>60) BUN/Creatinine Ratio (9-20) Glucose (80-116) mg/dL Calcium (8.6-10.2) mg/dL Total Bilirubin (0.1-1.3) mg/dL AST (5-25) IU/L ALT (12-36) U/L Alkaline Phosphatase (56-112) IU/L Troponin I (<0.017-0.056) ng/mL C-Reactive Protein (0.5-0.9) mg/dL Total Protein (6.0-8.0) g/dL Albumin (3.2-4.6) g/dL Globulin g/dL Albumin/Globulin Ratio Urine Color (YELLOW) Urine Appearance (CLEAR) Urine pH (5.0-6.5) Ur Specific [place] (1.010-1.025) Urine Protein (NEGATIVE) mg/dL Urine Glucose (UA) (NEGATIVE) mg/dL Urine Ketones (NEGATIVE) mg/dL Urine Occult Blood (NEGATIVE) Urine Nitrite (NEGATIVE) Urine Bilirubin (NEGATIVE) Urine Urobilinogen (NEGATIVE) mg/dL Ur Leukocyte Esterase (NEGATIVE) Urine WBC (0) Ur Squamous Epith Cells (NS,R,O) Urine Bacteria (NS) 04/24/18 04/24/18 04/24/18 Range/Units 11:30 11:30 12:09 WBC (4.5-12.0) X10-3/uL RBC (3.23-5.20) x10(6)uL Hgb (11.5-15.5) g/dL Hct (30.0-51.3) % MCV (80-96) fL MCH (27.7-33.6) pg MCHC (32.2-35.4) g/dL RDW (11.5-15.5) % Plt Count (125-369) X10(3)uL MPV (7.4-10.4) fL Neut % (Auto) (46-82) % Lymph % (Auto) (13-37) % Robertson % (Auto) (4-12) % Eos % (Auto) (1.0-5.0) % Baso % (Auto) (0-2) % Neut # (Auto) (1.6-8.3) # Lymph # (Auto) (0.6-5.0) # Robertson # (Auto) (0.0-1.3) # Eos # (Auto) (0.0-0.8) # Baso # (Auto) (0.0-0.2) # PT (8.7-11.1) INR (0.89-1.13) D-Dimer, Quantitative (0.0-0.59) mg/LFEU Sodium 141 (135-145) mmol/L Potassium 4.5 (3.5-5.3) mmol/L Chloride 102 (100-110) mmol/L Carbon Dioxide 31 (21-32) mmol/L BUN 45 H (7-18) mg/dL Creatinine 1.2 H (0.55-1.02) mg/dL Est Cr Clr Drug Dosing 29.38 mL/min Estimated GFR (MDRD) 43 L (>60) BUN/Creatinine Ratio 37.5 H (9-20) Glucose 128 H (80-116) mg/dL Calcium 9.8 (8.6-10.2) mg/dL Total Bilirubin 0.3 (0.1-1.3) mg/dL AST 30 H (5-25) IU/L ALT 28 (12-36) U/L Alkaline Phosphatase 94 (56-112) IU/L Troponin I < 0.017 L (<0.017-0.056) ng/mL C-Reactive Protein 0.7 (0.5-0.9) mg/dL Total Protein 6.9 (6.0-8.0) g/dL Albumin 3.7 (3.2-4.6) g/dL Globulin 3.2 g/dL Albumin/Globulin Ratio 1.2 Urine Color Yellow (YELLOW) Urine Appearance Clear (CLEAR) Urine pH 6.0 (5.0-6.5) Ur Specific [place] 1.010 (1.010-1.025) Urine Protein Negative (NEGATIVE) mg/dL Urine Glucose (UA) Normal (NEGATIVE) mg/dL Urine Ketones Negative (NEGATIVE) mg/dL Urine Occult Blood Negative (NEGATIVE) Urine Nitrite Negative (NEGATIVE) Urine Bilirubin Negative (NEGATIVE) Urine Urobilinogen Normal (NEGATIVE) mg/dL Ur Leukocyte Esterase Negative (NEGATIVE) Urine WBC 0-5 (0) Ur Squamous Epith Cells Few H (NS,R,O) Urine Bacteria Few H (NS) - Re-Assessments/Exams Free Text/Narrative Re-Assessment/Exam: 04/24/18 13:50 inc'd d-dimer, however u/s of LUE is neg which is c/w lack of hand edema and tenderness of deltoid muscle Departure - Departure Time of Disposition: 13:57 Disposition: Home, Self-Care 01 Condition: Good Clinical Impression: Muscle strain - Discharge Information Instructions: Muscle Strain, [id number] Referrals: Olive Browning, [employer]PERINTENDENT [Primary Care Provider] - Additional Instructions: Continue current meds. For pain and inflammation, take acetaminophen 325 mg 2 tabs 4 times a day for 3- 4 days. Use ice for 10 minutes 4 times a day for 2 days. See your doctor in 5-6 days. - My Orders Last 24 Hours: My Active Orders 04/24/18 12:09 URINALYSIS W/MICROSCOPIC [UA W/MICROSCOPIC] [URIN] Stat 04/24/18 12:40 VL Duplex Upr Ext Veins Ltd Lt [US] Stat - Assessment/Plan Last 24 Hours: My Active Orders 04/24/18 12:09 URINALYSIS W/MICROSCOPIC [UA W/MICROSCOPIC] [URIN] Stat 04/24/18 12:40 VL Duplex Upr Ext Veins Ltd Lt [US] Stat
[2018-04-24 13:59] VITALS: BP 171/86
--- NOTE | 2018-04-25 11:26 | US ---
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 DUPLEX ULTRASOUND, LEFT UPPER EXTREMITY VEINS: Utilizing 2-D real time, duplex Doppler spectral analysis and color flow imaging, examination of the left upper extremity veins revealed the subclavian, basilic, and brachial veins to compress normally without evidence of abnormal color flow - no evidence of deep venous thrombosis could be identified. IMPRESSION: No deep venous thrombosis left upper extremity to the elbow. MTDD
== END 2018-04-24 15:40 | disposition home or self-care (01) ==
LOC: FB.ED 10:51
DX: S46.912A Strain of unspecified muscle, fascia and tendon at shoulder and upper arm level, left arm, initial encounter (principal); I10 Essential (primary) hypertension; Z88.0 Allergy status to penicillin; Z88.5 Allergy status to narcotic agent; Z79.899 Other long term (current) drug therapy; Z79.82 Long term (current) use of aspirin; Z96.612 Presence of left artificial shoulder joint; X58.XXXA Exposure to other specified factors, initial encounter
CPT/HCPCS: 36415; 80053; 81001; 84484; 85025; 85379; 85610; 86140; 93005; 93971-LT; 99284

== ENCOUNTER 2018-08-19 20:12 | Emergency (ER) | payer MEDICARE ==
--- NOTE | 2018-08-19 20:55 | EDM.PDOC ---
ED HPI GENERAL MEDICAL PROBLEM - General Chief Complaint: Upper Extremity Injury/Pain Stated Complaint: FELL/PAIN ON LT LEG AND SHOULDER Time Seen by Provider: 08/19/18 20:30 - History of Present Illness INITIAL COMMENTS - FREE TEXT/NARRATIVE: Fadumo is an 82-year-old that was at a restaurant [employer]. While walking out she slipped and twisted her left calf and fell on the right side. She complains of pain in the left calf, and a bruise in the elbow. She also has chronic bilateral shoulder pain. She takes Coumadin for PE, and the daughter reports that she has fallen at least 4 times in the last 1 year. She denies hitting the head or neck and has no headache or neck pain. She denies chest pain or shortness of breath. left shoulder and left leg Pain Score (Numeric/FACES): 5 - Related Data Allergies Allergy/AdvReac Type Severity Reaction Status Date / Time Penicillins Allergy Intermediate Headache Verified 08/19/18 20:34 oxycodone [Oxycodone] Allergy Mild Lethargy Verified 08/19/18 20:34 cyclobenzaprine HCl Allergy Ringing in Verified 08/19/18 20:34 [From Flexeril] the Ears Home Meds: Home Meds Escitalopram [Lexapro] 20 mg PO DAILY 03/27/14 [History] Furosemide [Lasix] 40 mg PO BID 03/27/14 [History] Gabapentin [Neurontin] 600 mg PO QID 03/27/14 [History] Latanoprost [Xalatan 0.005% Ophth Soln] 1 drop EYEBOTH BEDTIME 03/27/14 [History ] Multivitamin [Daily Vitamin] 1 each PO DAILY 03/27/14 [History] Potassium Chloride 10 meq PO BIDM 03/27/14 [History] Valsartan [Diovan] 80 mg PO DAILY 03/27/14 [History] Omeprazole 20 mg PO 0600 #30 cap.sr 04/09/14 [Rx] Acetaminophen [Tylenol Extra Strength] 500 mg PO QID PRN 09/20/17 [History] Allopurinol [Zyloprim] 100 mg PO DAILY 09/20/17 [History] Aspirin [Halfprin] 81 mg PO DAILY 09/20/17 [History] Carisoprodol 350 mg PO BEDTIME 09/20/17 [History] Cyanocobalamin (Vitamin B-12) [B-12] 1,000 mcg PO DAILY 09/20/17 [History] Metoprolol Succinate [Toprol XL] 50 mg PO BID 09/20/17 [History] traMADol [Ultram] 50 mg PO Q8H PRN 09/20/17 [History] traZODone 50 mg PO BEDTIME 09/20/17 [History] Warfarin [Coumadin] 2 mg PO SUTUTHFRSA 04/24/18 [History] Warfarin [Coumadin] 3 mg PO MOWE 04/24/18 [History] Past Medical History HEENT History: Reports: Cataract, Glaucoma, Hard of Hearing, Impaired Vision Cardiovascular History: Reports: Blood Clots/VTE/DVT, Hypertension, [place], SOB on Exertion Genitourinary History: Reports: Acute Renal Failure, Urinary Incontinence, Other (See Below) Other Genitourinary History: stage 3 kidney disease [employer]ING [employer] History: Reports: Fibroids, Musculoskeletal History: Reports: Arthritis, Back Pain, Chronic, Fibromyalgia, Gout, Osteoarthritis, Osteoporosis Psychiatric History: Reports: Depression, Panic Attack Endocrine/Metabolic History: Reports: Obesity/BMI 30+ Hematologic History: Reports: Anemia Dermatologic History: Reports: Angiodema - Infectious Disease History Infectious Disease History: Reports: Chicken Pox, Hepatitis A, Influenza, Measles, MRSA, Mumps, Rubella - Past Surgical History HEENT Surgical History: Reports: Cataract Surgery, Laser Surgery, Tonsillectomy Female Surgical History: Reports: Hysterectomy Musculoskeletal Surgical History: Reports: Arthroscopic Knee, Arthroscopic Procedure, Joint Replacement, Knee Replacement, Other (See Below) Other Musculoskeletal Surgeries/Procedures:: 5 TKR in left and 2TKR in right Social & Family History - Family History Family Medical History: Noncontributory HEENT: Reports: Hearing Impairment Musculoskeletal: Reports: Arthritis, Back pain, Chronic, Fibromyalgia, Osteoarthritis, Osteoporosis Endocrine/Metabolic: Reports: Diabetes, type II Oncologic: Reports: Breast Other Oncologic Family History: Her mother had 4 out 6 girls with breast cancer. - Tobacco Use Smoking Status *Q: Never Smoker - Caffeine Use Caffeine Use: Reports: Coffee - Recreational Drug Use Recreational Drug Use: No Review of Systems - Review of Systems Review Of Systems: ROS reveals no pertinent complaints other than HPI. ED EXAM, GENERAL - Physical Exam Exam: See Below Free Text/Narrative:: Fadumo was examined in room 201. She is alert and oriented. Pleasant. Vital signs unremarkable. Is tenderness in the left no visible swelling. Is also visible bruise of the right elbow but she is range of motion and no tenderness by palpation. Course - Vital Signs Text/Narrative:: Re-examined,vital signs stable Last Recorded V/S: Last Vital Signs Temp 97.4 F 08/19/18 20:12 Pulse 72 08/19/18 20:12 Resp 20 08/19/18 20:12 BP 149/79 H 08/19/18 20:12 Pulse Ox 97 08/19/18 20:12 - Orders/Labs/Meds Labs: Laboratory Tests 08/19/18 Range/Units 20:55 PT 17.7 H (8.7-11.1) INR 1.83 H (0.89-1.13) Departure - Departure Time of Disposition: 21:27 Disposition: Home, Self-Care 01 Clinical Impression: Status post shoulder surgery, Muscle strain - Discharge Information Referrals: John Buchanan MD [Primary Care Provider] - Forms: ED Department Discharge - Problem List & Annotations (1) Frequent falls SNOMED Code(s): 660606322 Code(s): R29.6 - REPEATED FALLS Status: Acute Current Visit: Yes (2) Muscle strain SNOMED Code(s): 74027957 Code(s): T14.8XXA - OTHER INJURY OF UNSPECIFIED BODY REGION, INITIAL ENCOUNTER Status: Acute Current Visit: No (3) [facility] current use of anticoagulant SNOMED Code(s): 313479549 Code(s): Z79.01 - 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 I will discharge the patient home, follow-up with Coumadin clinic about the dosing of Coumadin. Take Tylenol as needed for pain. No further imaging necessary tonight.
[2018-08-19 22:47] VITALS: BP 127/53
== END 2018-08-19 21:47 | disposition home or self-care (01) ==
LOC: FB.ED 20:12
DX: S86.912A Strain of unspecified muscle(s) and tendon(s) at lower leg level, left leg, initial encounter (principal); S50.01XA Contusion of right elbow, initial encounter; I12.9 Hypertensive chronic kidney disease with stage 1 through stage 4 chronic kidney disease, or unspecified chronic kidney disease; N18.3 Chronic kidney disease, stage 3 (moderate); F32.9 Major depressive disorder, single episode, unspecified; F41.0 Panic disorder [episodic paroxysmal anxiety]; Z88.0 Allergy status to penicillin; Z88.5 Allergy status to narcotic agent; Z79.899 Other long term (current) drug therapy; X50.1XXA Overexertion from prolonged static or awkward postures, initial encounter; Z79.82 Long term (current) use of aspirin
CPT/HCPCS: 36415; 85610; 99283

== ENCOUNTER 2018-08-25 10:14 | Inpatient (IN) | payer MEDICARE ==
--- NOTE | 2018-08-25 10:59 | EDM.PDOC ---
ED HPI GENERAL MEDICAL PROBLEM - General Chief Complaint: Lower Extremity Injury/Pain Stated Complaint: LT LEG PAIN Time Seen by Provider: 08/25/18 10:54 Source of Information: Reports: Patient History Limitations: Reports: No Limitations - History of Present Illness INITIAL COMMENTS - FREE TEXT/NARRATIVE: Lost balance and fell 6 days ago, complains of left leg pain and bruising to lower leg. Painful to bear weight. Having difficulty using walker due to chronic shoulder pain. Pain not controlled with Tramadol. On Coumadin for DVT and PE. Patient lives alone. Onset Date: 08/19/18 Duration: Day(s): (6) Location: Reports: Lower Extremity, Left Quality: Reports: Dull Severity: Moderate left leg Pain Score (Numeric/FACES): 8 - Related Data Allergies Allergy/AdvReac Type Severity Reaction Status Date / Time Penicillins Allergy Intermediate Headache Verified 08/25/18 10:20 oxycodone [Oxycodone] Allergy Mild Lethargy Verified 08/25/18 10:20 cyclobenzaprine HCl Allergy Ringing in Verified 08/25/18 10:20 [From Flexeril] the Ears Home Meds: Home Meds Escitalopram [Lexapro] 20 mg PO DAILY 03/27/14 [History] Furosemide [Lasix] 40 mg PO BID 03/27/14 [History] Gabapentin [Neurontin] 600 mg PO QID 03/27/14 [History] Latanoprost [Xalatan 0.005% Ophth Soln] 1 drop EYEBOTH BEDTIME 03/27/14 [History ] Multivitamin [Daily Vitamin] 1 each PO DAILY 03/27/14 [History] Potassium Chloride 10 meq PO BIDM 03/27/14 [History] Valsartan [Diovan] 80 mg PO DAILY 03/27/14 [History] Omeprazole 20 mg PO 0600 #30 cap.sr 04/09/14 [Rx] Acetaminophen [Tylenol Extra Strength] 500 mg PO QID PRN 09/20/17 [History] Allopurinol [Zyloprim] 100 mg PO DAILY 09/20/17 [History] Aspirin [Halfprin] 81 mg PO DAILY 09/20/17 [History] Carisoprodol 350 mg PO BEDTIME 09/20/17 [History] Cyanocobalamin (Vitamin B-12) [B-12] 1,000 mcg PO DAILY 09/20/17 [History] Metoprolol Succinate [Toprol XL] 50 mg PO BID 09/20/17 [History] traMADol [Ultram] 50 mg PO Q8H PRN 09/20/17 [History] traZODone 50 mg PO BEDTIME 09/20/17 [History] Warfarin [Coumadin] 2 mg PO SUTUTHFRSA 04/24/18 [History] Warfarin [Coumadin] 3 mg PO MOWE 04/24/18 [History] Past Medical History HEENT History: Reports: Cataract, Glaucoma, Hard of Hearing, Impaired Vision Cardiovascular History: Reports: Blood Clots/VTE/DVT, Hypertension, [place], SOB on Exertion Genitourinary History: Reports: Acute Renal Failure, Urinary Incontinence, Other (See Below) Other Genitourinary History: stage 3 kidney disease 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: Reports: Fibroids, Musculoskeletal History: Reports: Arthritis, Back Pain, Chronic, Fibromyalgia, Gout, Osteoarthritis, Osteoporosis Psychiatric History: Reports: Depression, Panic Attack Endocrine/Metabolic History: Reports: Obesity/BMI 30+ Hematologic History: Reports: Anemia Dermatologic History: Reports: Angiodema - Infectious Disease History Infectious Disease History: Reports: Chicken Pox, Hepatitis A, Influenza, Measles, MRSA, Mumps, Rubella - Past Surgical History HEENT Surgical History: Reports: Cataract Surgery, Laser Surgery, Tonsillectomy Female Surgical History: Reports: Hysterectomy Musculoskeletal Surgical History: Reports: Arthroscopic Knee, Arthroscopic Procedure, Joint Replacement, Knee Replacement, Other (See Below) Other Musculoskeletal Surgeries/Procedures:: 5 TKR in left and 2TKR in right Social & Family History - Family History Family Medical History: Noncontributory HEENT: Reports: Hearing Impairment Musculoskeletal: Reports: Arthritis, Back pain, Chronic, Fibromyalgia, Osteoarthritis, Osteoporosis Endocrine/Metabolic: Reports: Diabetes, type II Oncologic: Reports: Breast Other Oncologic Family History: Her mother had 4 out 6 girls with breast cancer. - Tobacco Use Smoking Status *Q: Never Smoker Second Hand Smoke Exposure: No - Caffeine Use Caffeine Use: Reports: Coffee, Soda - Recreational Drug Use Recreational Drug Use: No Review of Systems - Review of Systems Review Of Systems: ROS reveals no pertinent complaints other than HPI. ED EXAM, GENERAL - Physical Exam Exam: See Below Exam Limited By: No Limitations General Appearance: Alert, WD/WN, No Apparent Distress Ears: Normal External Exam Nose: Normal Inspection Throat/Mouth: No Airway Compromise Head: Atraumatic, Normocephalic Respiratory/Chest: No Respiratory Distress Peripheral Pulses: 2+: Dorsalis Pedis (L) Back Exam: Full Range of Motion Extremities: Other (Tenderness to left hip, thigh, knee and lower leg. Ecchymosis noted to lower leg and foot. Left foot is non-tender.) Neurological: Alert, Oriented, Normal Cognition, No Motor/Sensory Deficits Psychiatric: Normal Affect, Normal Mood Skin Exam: Warm, Dry, Intact Course - Vital Signs Last Recorded V/S: Last Vital Signs Temp 36.6 C 08/25/18 10:20 Pulse 62 08/25/18 10:20 Resp 17 08/25/18 10:20 BP 176/63 H 08/25/18 10:20 Pulse Ox 95 08/25/18 10:20 - Orders/Labs/Meds Orders: Active Orders 24 hr Category Date Time Status Admission Status [Patient Status] [ADT] Routine ADT 08/25/18 11:57 Ordered Splinting [RC] ASDIRECTED Care 08/25/18 11:49 Ordered Femur Min 2V Lt [CR] Stat Exams 08/25/18 10:53 Ordered Pelvis 1V or 2V [CR] Stat Exams 08/25/18 10:52 Ordered Tibia Fibula Lt [CR] Stat Exams 08/25/18 10:53 Ordered VL Duplex Lwr Ext Veins Ltd Lt [US] Stat Exams 08/25/18 10:55 Ordered UA W/MICROSCOPIC [URIN] Stat Lab 08/25/18 11:30 Ordered Labs: Laboratory Tests 08/25/18 08/25/18 08/25/18 Range/Units 11:00 11:00 11:00 WBC 4.8 (4.5-12.0) X10-3/uL RBC 3.31 (3.23-5.20) x10(6)uL Hgb 11.3 L (11.5-15.5) g/dL Hct 32.4 (30.0-51.3) % MCV 97.7 H (80-96) fL MCH 34.1 H (27.7-33.6) pg MCHC 34.9 (32.2-35.4) g/dL RDW 14.1 (11.5-15.5) % Plt Count 156 (125-369) X10(3)uL MPV 7.6 (7.4-10.4) fL Neut % (Auto) 68.4 (46-82) % Lymph % (Auto) 18.2 (13-37) % Leon % (Auto) 7.7 (4-12) % Eos % (Auto) 5 (1.0-5.0) % Baso % (Auto) 1 (0-2) % Neut # (Auto) 3.2 (1.6-8.3) # Lymph # (Auto) 0.9 (0.6-5.0) # Leon # (Auto) 0.4 (0.0-1.3) # Eos # (Auto) 0.2 (0.0-0.8) # Baso # (Auto) 0.0 (0.0-0.2) # PT 21.7 H (8.7-11.1) INR 2.26 H (0.89-1.13) Sodium 140 (135-145) mmol/L Potassium 4.3 (3.5-5.3) mmol/L Chloride 102 (100-110) mmol/L Carbon Dioxide 33 H (21-32) mmol/L BUN 32 H D (7-18) mg/dL Creatinine 1.1 H (0.55-1.02) mg/dL Est Cr Clr Drug Dosing 32.06 mL/min Estimated GFR (MDRD) 47 L (>60) BUN/Creatinine Ratio 29.1 H (9-20) Glucose 105 (80-116) mg/dL Calcium 9.3 (8.6-10.2) mg/dL - Radiology Interpretation Free Text/Narrative:: Pevis XR: NAD Left Femur XR: No acute osseous abnormality Left Tib Fib XR: Proximal fibula fracture, otherwise normal. - Re-Assessments/Exams Free Text/Narrative Re-Assessment/Exam: 08/25/18 12:13 Dr. Lyn consulted, recommends weight bearing as tolerated. Patient unable to care for herself at home. Dr. Bourne agrees to admit patient to [facility]. Departure - Departure Time of Disposition: 12:10 Disposition: Admitted As Inpatient 65 Condition: Fair Clinical Impression: Fracture, fibula, proximal Qualifiers: Encounter type: initial encounter Fracture type: closed Fracture morphology: other fracture Laterality: left Qualified Code(s): S82.832A - Other fracture of upper and lower end of left fibula, initial encounter for closed fracture - Discharge Information *PRESCRIPTION DRUG MONITORING PROGRAM REVIEWED*: No *COPY OF PRESCRIPTION DRUG MONITORING REPORT IN PATIENT [id number]: Not Applicable Referrals: Olive Browning, [employer] [Primary Care Provider] - Forms: ED Department Discharge - My Orders Last 24 Hours: My Active Orders 08/25/18 10:52 Pelvis 1V or 2V [CR] Stat 08/25/18 10:53 Femur Min 2V Lt [CR] Stat Tibia Fibula Lt [CR] Stat 08/25/18 10:55 VL Duplex Lwr Ext Veins Ltd Lt [US] Stat 08/25/18 11:30 UA W/MICROSCOPIC [URIN] Stat 08/25/18 11:49 Splinting [RC] ASDIRECTED 08/25/18 11:57 Admission Status [Patient Status] [ADT] Routine - Assessment/Plan Last 24 Hours: My Active Orders 08/25/18 10:52 Pelvis 1V or 2V [CR] Stat 08/25/18 10:53 Femur Min 2V Lt [CR] Stat Tibia Fibula Lt [CR] Stat 08/25/18 10:55 VL Duplex Lwr Ext Veins Ltd Lt [US] Stat 08/25/18 11:30 UA W/MICROSCOPIC [URIN] Stat 08/25/18 11:49 Splinting [RC] ASDIRECTED 08/25/18 11:57 Admission Status [Patient Status] [ADT] Routine
[2018-08-25] MEDS ORDERED: Sodium Chloride 0.9% 10 ML Syringe FLUSH PRN (12:16)
--- NOTE | 2018-08-25 13:29 | CR ---
INDICATION: Injury, fell 6 days ago, knee surgery in 2016. LEFT FEMUR: Four images of the left femur in frontal and lateral projections revealed a knee arthroplasty with no patellar component. The knee arthroplasty appears to be intact. However, old films will be obtained from [place] to compare the appearance of the knee arthroplasty. There is noted what appears to be a comminuted acute fracture site at the proximal shaft of the fibula. It will be compared with the previous examination also. The study was otherwise unremarkable. IMPRESSION: 1. Probable acute fracture at the proximal fibular shaft with comminution and moderate deformity. 2. Intact appearing total knee arthroplasty. Comparison will be made to previous examination when it arrives from [place]. [facility]
--- NOTE | 2018-08-25 13:32 | CR ---
INDICATION: Injury, fell 6 days ago, knee surgery in 2016. LEFT TIBIA/FIBULA: Four images of the left tibia and fibula were obtained in frontal and lateral projections, 08/25/2018. No comparisons were available at this time but will be sent for. Knee arthroplasty is noted, which appears to be intact. Proximal fibular fracture site is noted comminuted and appears acute. Overall somewhat demineralized appearance raises question of osteoporosis - correlate clinically. MTDD
--- NOTE | 2018-08-25 13:34 | CR ---
INDICATION: Injury, fell 6 days ago, knee surgery in 2016. PELVIS: Single frontal view of the pelvis was obtained and revealed mild degenerative changes at the hip joints and sacroiliac joints. There appears to be a fusion at the lower lumbosacral spine. A definite acute fracture or dislocation was not identified. MTDD
[2018-08-25] MEDS: Gabapentin 600 MG Tab PO SCH ×2 (17:01→22:01)
[2018-08-25] MEDS: Acetaminophen 500 MG Tab PO SCH ×2 (17:01→20:12)
[2018-08-25] MEDS ORDERED: Acetaminophen 500 MG Tab PO PRN (17:33)
--- NOTE | 2018-08-25 18:23 | PCM.HP ---
H&P History of Present Illness - General Date of Service: 08/25/18 Admit Problem/Dx: Admission Diagnosis/Problem Admission Diagnosis/Problem Closed fracture of fibula Source of Information: Patient History Limitations: Reports: No Limitations - History of Present Illness Initial Comments - Free Text/Narative: This is an 82-year-old female patient comes to the ER and was diagnosed with a left fibula fracture proximal. Patient fell one week ago at the [employer] restaurant in [place]. She was seen in the ER earlier in no x-ray done. She was brought back and others the fracture. Patient's had several surgeries on her shoulders and she has chronic shoulder pain. And because of this injury she's not able to use her walker and get around. She lives by herself. She was seen by Dr. Lyn who said she can bear weight on the left leg as tolerated. She is wearing a knee immobilizer currently. Her daughter says she is fallen a few times recently. She lives in an apartment by herself. left leg Pain Score (Numeric/FACES): 5 bilateral shoulders Pain Score (Numeric/FACES): 5 lower back Pain Score (Numeric/FACES): 5 - Related Data Allergies/Adverse Reactions: Allergies Allergy/AdvReac Type Severity Reaction Status Date / Time Penicillins Allergy Intermediate Headache Verified 08/25/18 14:16 oxycodone [Oxycodone] Allergy Mild Lethargy Verified 08/25/18 10:20 cyclobenzaprine HCl Allergy Ringing in Verified 08/25/18 10:20 [From Flexeril] the Ears Home Medications: Home Meds Escitalopram [Lexapro] 20 mg PO DAILY 03/27/14 [History] Furosemide [Lasix] 40 mg PO BID@03/27/14 [History] Gabapentin [Neurontin] 600 mg PO QID 03/27/14 [History] Multivitamin [Daily Vitamin] 1 each PO DAILY 03/27/14 [History] Potassium Chloride 10 meq PO BIDM 03/27/14 [History] Acetaminophen [Tylenol Extra Strength] 500 mg PO QID 09/20/17 [History] Allopurinol [Zyloprim] 100 mg PO DAILY@1200 09/20/17 [History] Aspirin [Halfprin] 81 mg PO BEDTIME 09/20/17 [History] Carisoprodol 350 mg PO BEDTIME 09/20/17 [History] Cyanocobalamin (Vitamin B-12) [B-12] 1,000 mcg PO DAILY 09/20/17 [History] Metoprolol Succinate [Toprol XL] 50 mg PO BID 09/20/17 [History] traZODone 50 mg PO BEDTIME 09/20/17 [History] Warfarin [Coumadin] 2 mg PO SUTUTHFRSA 04/24/18 [History] Warfarin [Coumadin] 3 mg PO MOWE 04/24/18 [History] Acetaminophen [Tylenol Extra Strength] 500 mg PO Q4H PRN 08/25/18 [History] Bimatoprost [Lumigan 0.01% Ophth Soln] 1 drop EYEBOTH BEDTIME 08/25/18 [History] Losartan [Cozaar] 50 mg PO DAILY@1200 08/25/18 [History] Omeprazole 20 mg PO DAILY PRN 08/25/18 [History] Tolterodine Tartrate [Detrol LA] 2 mg PO DAILY 08/25/18 [History] traMADol [Ultram] 50 mg PO BID@08,16 08/25/18 [History] Past Medical History HEENT History: Reports: Cataract, Glaucoma, Hard of Hearing, Impaired Vision Cardiovascular History: Reports: Blood Clots/VTE/DVT, CAD, Hypertension, DE, SOB on Exertion Respiratory History: Reports: PE Gastrointestinal History: Reports: Hepatitis Genitourinary History: Reports: Acute Renal Failure, Urinary Incontinence, Other (See Below) Other Genitourinary History: stage 3 kidney disease [employer] History: Reports: Fibroids, Musculoskeletal History: Reports: Arthritis, Back Pain, Chronic, Fibromyalgia, Gout, Osteoarthritis, Osteoporosis, Other (See Below) Other Musculoskeletal History: DJD Psychiatric History: Reports: Depression, Panic Attack Endocrine/Metabolic History: Reports: Obesity/BMI 30+ Hematologic History: Reports: Anemia, Blood Transfusion(s) Dermatologic History: Reports: Angiodema - Infectious Disease History Infectious Disease History: Reports: Chicken Pox, Hepatitis A, Influenza, Measles, MRSA, Mumps, Rubella - Past Surgical History HEENT Surgical History: Reports: Cataract Surgery, Laser Surgery, Tonsillectomy GI Surgical History: Reports: Appendectomy, Cholecystectomy, Other (See Below) Other GI Surgeries/Procedures: liver bx Female Surgical History: Reports: Hysterectomy Musculoskeletal Surgical History: Reports: Arthroscopic Knee, Arthroscopic Procedure, Joint Replacement, Knee Replacement, Shoulder Replacement, Other ( See Below) Other Musculoskeletal Surgeries/Procedures:: 5 TKR in left and 2TKR in right, back surgery, foot surgery Social & Family History - Family History Family Medical History: Noncontributory HEENT: Reports: Hearing Impairment Musculoskeletal: Reports: Arthritis, Back pain, Chronic, Fibromyalgia, Osteoarthritis, Osteoporosis Endocrine/Metabolic: Reports: Diabetes, type II Oncologic: Reports: Breast Other Oncologic Family History: Her mother had 4 out 6 girls with breast cancer. - Tobacco Use Smoking Status *Q: Never Smoker Second Hand Smoke Exposure: No - Caffeine Use Caffeine Use: Reports: Coffee, Soda - Recreational Drug Use Recreational Drug Use: No H&P Review of Systems - Review of Systems: Review Of Systems: See Below General: Reports: No Symptoms HEENT: Reports: No Symptoms Pulmonary: Reports: No Symptoms Cardiovascular: Reports: No Symptoms Gastrointestinal: Reports: No Symptoms Genitourinary: Reports: No Symptoms Musculoskeletal: Reports: Joint Pain Skin: Reports: No Symptoms Psychiatric: Reports: No Symptoms Neurological: Reports: No Symptoms Hematologic/Lymphatic: Reports: No Symptoms Immunologic: Reports: No Symptoms Exam - Exam Exam: See Below - Vital Signs Vital Signs: Last Vital Signs Temp 97.7 F 08/25/18 15:50 Pulse 73 08/25/18 15:50 Resp 14 08/25/18 15:50 BP 149/72 H 08/25/18 15:50 Pulse Ox 96 08/25/18 15:50 Weight: 201 lb 3.2 oz - Exam General: Alert, Oriented, Cooperative HEENT: Hearing Intact, Mucosa Moist & [place], Posterior Pharynx Clear, TMs Clear Neck: Supple, Trachea Midline. No: Carotid Bruit Lungs: Clear to Auscultation, Normal Respiratory Effort Cardiovascular: Regular Rate, Regular Rhythm, Systolic Murmur GI/Abdominal Exam: Normal Bowel Sounds, Soft, Non-Tender, No Organomegaly, No Distention, No Abnormal Bruit, No Mass Back Exam: Normal Inspection Extremities: Other (Left extremities in the immobilizer. Start him and examined by orthopedic surgeon.) Skin: Warm Neurological: Normal Speech, Normal Tone Neuro Extensive - Mental Status: Alert, Oriented x3, Normal Mood/Affect, Normal Cognition Neuro Extensive - Motor, Sensory, Reflexes: No: Normal Gait Psychiatric: Alert, Normal Affect, Normal Mood - Patient Data Lab Results Last 24 hrs: Laboratory Results - last 24 hr 08/25/18 08/25/18 08/25/18 Range/Units 11:00 11:00 11:00 WBC 4.8 (4.5-12.0) X10-3/uL RBC 3.31 (3.23-5.20) x10(6)uL Hgb 11.3 L (11.5-15.5) g/dL Hct 32.4 (30.0-51.3) % MCV 97.7 H (80-96) fL MCH 34.1 H (27.7-33.6) pg MCHC 34.9 (32.2-35.4) g/dL RDW 14.1 (11.5-15.5) % Plt Count 156 (125-369) X10(3)uL MPV 7.6 (7.4-10.4) fL Neut % (Auto) 68.4 (46-82) % Lymph % (Auto) 18.2 (13-37) % [place] % (Auto) 7.7 (4-12) % Eos % (Auto) 5 (1.0-5.0) % Baso % (Auto) 1 (0-2) % Neut # (Auto) 3.2 (1.6-8.3) # Lymph # (Auto) 0.9 (0.6-5.0) # [place] # (Auto) 0.4 (0.0-1.3) # Eos # (Auto) 0.2 (0.0-0.8) # Baso # (Auto) 0.0 (0.0-0.2) # PT 21.7 H (8.7-11.1) INR 2.26 H (0.89-1.13) Sodium 140 (135-145) mmol/L Potassium 4.3 (3.5-5.3) mmol/L Chloride 102 (100-110) mmol/L Carbon Dioxide 33 H (21-32) mmol/L BUN 32 H D (7-18) mg/dL Creatinine 1.1 H (0.55-1.02) mg/dL Est Cr Clr Drug Dosing 32.06 mL/min Estimated GFR (MDRD) 47 L (>60) BUN/Creatinine Ratio 29.1 H (9-20) Glucose 105 (80-116) mg/dL Calcium 9.3 (8.6-10.2) mg/dL Result Diagrams: 08/25/18 11:00 08/25/18 11:00 - Problem List (1) Chronic shoulder pain SNOMED Code(s): 88383560 ICD Code: M25.519 - PAIN IN UNSPECIFIED SHOULDER; G89.29 - OTHER CHRONIC PAIN Status: Acute Current Visit: Yes (2) Chronic renal failure, stage 3 (moderate) SNOMED Code(s): 01901862, 295680270 ICD Code: N18.3 - CHRONIC KIDNEY DISEASE, STAGE 3 (MODERATE) Status: Acute Current Visit: Yes (3) Palliative care status SNOMED Code(s): 306469206 ICD Code: Z51.5 - ENCOUNTER FOR PALLIATIVE CARE Status: Acute Current Visit: Yes (4) Fracture, fibula, proximal SNOMED Code(s): 47751455 ICD Code: S82.839A - OTH FRACTURE OF UPPER AND LOWER END OF UNSP FIBULA, INIT Status: Acute Current Visit: Yes Qualifiers: Encounter type: initial encounter Fracture type: closed Fracture morphology: other fracture Laterality: left Qualified Code(s): S82.832A - Other fracture of upper and lower end of left fibula, initial encounter for closed fracture Problem List Initiated/Reviewed/Updated: Yes Orders Last 24hrs: Active Orders 24 hr Category Date Time Status Patient Status [ADT] Routine ADT 08/25/18 12:16 Active Antiembolic Devices [RC] .Routine Care 08/25/18 12:20 Active Height and Weight [RC] DAILY Care 08/25/18 12:16 Active Intake and Output [RC] 06,14,22 Care 08/25/18 12:21 Active Notify Provider Consults [RC] ASDIRECTED Care 08/25/18 12:24 Active Notify Provider Vital Signs [RC] ASDIRECTED Care 08/25/18 12:21 Active Pulse Oximetry [RC] PRN Care 08/25/18 12:16 Active Splinting [RC] 08,16,00 Care 08/25/18 11:49 Active Up With Assistance [RC] ASDIRECTED Care 08/25/18 12:16 Active VTE/DVT Education [RC] Click to Edit Care 08/25/18 12:20 Active Vital Signs [RC] 08,16,00 Care 08/25/18 12:16 Active Consult to Occupational Therapy [OT Evaluation and Cons 08/25/18 18:17 Ordered Treatment] [CONS] Routine Consult to Physician [CONS] Stat Cons 08/25/18 12:23 Ordered PT Evaluation and Treatment [CONS] Routine Cons 08/25/18 12:23 Active Heart Healthy Diet [DIET] Diet 08/25/18 Dinner Active VL Duplex Lwr Ext Veins Ltd Lt [US] Stat Exams 08/25/18 10:55 Taken UA W/MICROSCOPIC [URIN] Stat Lab 08/25/18 18:00 Received Acetaminophen [Tylenol Extra Strength] Med 08/25/18 17:33 Active 500 mg PO Q4H PRN Acetaminophen [Tylenol Extra Strength] Med 08/25/18 16:00 Active 500 mg PO QID Acetaminophen [Tylenol Extra Strength] Med 08/25/18 21:00 Active 500 mg PO QID Allopurinol [Zyloprim] Med 08/26/18 12:00 Active 100 mg PO DAILY@1200 Aspirin [Halfprin] Med 08/25/18 21:00 Active 81 mg PO BEDTIME Carisoprodol [Soma] Med 08/25/18 21:00 Active 350 mg PO BEDTIME Cyanocobalamin (Vitamin B12) [Vitamin B12] Med 08/26/18 09:00 Active 1,000 mcg PO DAILY Escitalopram [Lexapro] Med 08/26/18 09:00 Active 20 mg PO DAILY Furosemide [Lasix] Med 08/25/18 18:00 Active 40 mg PO BID@,18 Gabapentin [Neurontin] Med 08/25/18 17:00 Active 600 mg PO QID Latanoprost [Xalatan 0.005% Ophth Soln] Med 08/25/18 21:00 Active 0 ml EYEBOTH BEDTIME Losartan [Cozaar] Med 08/26/18 12:00 Active 50 mg PO DAILY@1200 Metoprolol Succinate [Toprol XL] Med 08/25/18 21:00 Active 50 mg PO BID Multivitamins [Tab-A-Terry] Med 08/26/18 09:00 Active 1 tab PO DAILY Pantoprazole [ProTONIX] Med 08/25/18 17:56 Active 40 mg PO DAILY PRN Potassium Chloride [Klor-Con 10] Med 08/25/18 18:00 Active 10 meq PO BIDMEALS Sodium Chloride 0.9% [Saline Flush] Med 08/25/18 12:16 Active 10 ml FLUSH ASDIRECTED PRN Trospium [Sanctura] Med 08/25/18 21:00 Active 20 mg PO BID Warfarin [Coumadin] Med 08/26/18 16:00 Active 2 mg PO SuTuThFrSa@1600 Warfarin [Coumadin] Med 08/27/18 16:00 Active 3 mg PO MoWe@1600 traMADol [Ultram] Med 08/26/18 08:00 Active 50 mg PO BID@08,16 traZODone Med 08/25/18 21:00 Active 50 mg PO BEDTIME DVT/VTE Prophylaxis Reflex [OM.PC] Per Unit Routine Oth 08/25/18 12:16 Ordered Saline Lock Insert [OM.PC] Routine Oth 08/25/18 12:16 Ordered Resuscitation Status Routine Resus Stat 08/25/18 12:16 Ordered Medication Orders Acetaminophen (Tylenol Extra Strength) 500 mg PO QID [facility] Last Admin: 08/25/18 17:01 Dose: 500 mg Acetaminophen (Tylenol Extra Strength) 500 mg PO Q4H PRN PRN Reason: Pain Acetaminophen (Tylenol Extra Strength) 500 mg PO QID [facility] Allopurinol (Zyloprim) 100 mg PO DAILY@1200 [facility] Aspirin (Halfprin) 81 mg PO BEDTIME [facility] Carisoprodol (Soma) 350 mg PO BEDTIME [facility] Cyanocobalamin (Vitamin B12) 1,000 mcg PO DAILY [facility] Escitalopram Oxalate (Lexapro) 20 mg PO DAILY [facility] Furosemide (Lasix) 40 mg PO BID@ [facility] Gabapentin (Neurontin) 600 mg PO QID [facility] Last Admin: 08/25/18 17:01 Dose: 600 mg Latanoprost (Xalatan 0.005% Ophth Soln) 0 ml EYEBOTH BEDTIME [facility] Losartan Potassium (Cozaar) 50 mg PO DAILY@1200 [facility] Metoprolol Succinate (Toprol Xl) 50 mg PO BID [facility] Multivitamins/Minerals/Vitamin C (Tab-A-Terry) 1 tab PO DAILY [facility] Pantoprazole Sodium (Protonix) 40 mg PO DAILY PRN PRN Reason: Heartburn Potassium Chloride (Klor-Con 10) 10 meq PO BIDMEALS [facility] Sodium Chloride (Saline Flush) 10 ml FLUSH ASDIRECTED PRN PRN Reason: Keep Vein Open Tramadol HCl (Ultram) 50 mg PO BID@08,16 [facility] Trazodone HCl (Trazodone) 50 mg PO BEDTIME [facility] Trospium (Sanctura) 20 mg PO BID [facility] Warfarin Sodium (Coumadin) 2 mg PO SuTuThFrSa@1600 [facility] Warfarin Sodium (Coumadin) 3 mg PO MoWe@1600 [facility] Assessment/Plan Comment:: 1. Admit for pain control 2. Treat her her tramadol twice a day and then go every 4 hours when necessary. 3. PT/OT. 4. Regular diet. 5. Continue her regular medications. 6. She can bear weight and up with assist. 7. Social service to see where she could go her she could do rehabilitation. Patient cannot go home due to her chronic shoulder pain and she's not able to use a device very well to stabilize her supple she's walking.
[2018-08-25] MEDS: Potassium Chloride 10 MEQ Tab.ER PO SCH (19:11)
[2018-08-25] MEDS: Furosemide 40 MG Tab PO SCH (19:11)
[2018-08-25] MEDS: Pantoprazole 40 MG Tab.CR PO PRN (19:11)
[2018-08-25] MEDS ORDERED: traMADol 50 MG Tab PO PRN (19:41)
[2018-08-25] MEDS: Metoprolol Succinate 50 MG Tab.ER PO SCH (20:10)
[2018-08-25] MEDS: Aspirin 81 MG Tab.EC PO SCH (20:10)
[2018-08-25] MEDS: traZODone 50 MG Tab PO SCH (20:11)
[2018-08-25] MEDS ORDERED: Latanoprost 0.005% Ophth Soln 2.5 ML Bottle EYEBOTH SCH (21:00)
[2018-08-25] MEDS ORDERED: Trospium 20 MG Tab PO SCH (21:00)
[2018-08-25] MEDS ORDERED: Acetaminophen 500 MG Tab PO SCH (21:00)
[2018-08-26] MEDS: Pantoprazole 40 MG Tab.CR PO PRN (06:33)
[2018-08-26] MEDS ORDERED: traMADol 50 MG Tab PO SCH (08:00)
--- NOTE | 2018-08-26 08:34 | PCM.PN ---
- General Info Date of Service: 08/26/18 Admission Dx/Problem (Free Text): Patient has little left leg pain and is using leg immobilizer. She still has bilateral chronic shoulder pain which makes it difficult for her to use the walker. She says it may be little bit better. She had one PT session yesterday. - Patient Data Vitals - Most Recent: Last Vital Signs Temp 97.9 F 08/26/18 00:00 Pulse 66 08/26/18 00:00 Resp 20 08/26/18 00:00 BP 145/65 H 08/26/18 00:00 Pulse Ox 93 L 08/26/18 00:00 Weight - Most Recent: 198 lb 3.2 oz I&O - Last 24 Hours: Intake & Output 08/25/18 08/26/18 08/26/18 22:59 06:59 14:59 Intake Total 1000 Output Total 800 1400 Balance 200 -1400 Lab Results Last 24 Hours: Laboratory Results - last 24 hr 08/25/18 08/25/18 08/25/18 Range/Units 11:00 11:00 11:00 WBC 4.8 (4.5-12.0) X10-3/uL RBC 3.31 (3.23-5.20) x10(6)uL Hgb 11.3 L (11.5-15.5) g/dL Hct 32.4 (30.0-51.3) % MCV 97.7 H (80-96) fL MCH 34.1 H (27.7-33.6) pg MCHC 34.9 (32.2-35.4) g/dL RDW 14.1 (11.5-15.5) % Plt Count 156 (125-369) X10(3)uL MPV 7.6 (7.4-10.4) fL Neut % (Auto) 68.4 (46-82) % Lymph % (Auto) 18.2 (13-37) % Thomas % (Auto) 7.7 (4-12) % Eos % (Auto) 5 (1.0-5.0) % Baso % (Auto) 1 (0-2) % Neut # (Auto) 3.2 (1.6-8.3) # Lymph # (Auto) 0.9 (0.6-5.0) # Thomas # (Auto) 0.4 (0.0-1.3) # Eos # (Auto) 0.2 (0.0-0.8) # Baso # (Auto) 0.0 (0.0-0.2) # PT 21.7 H (8.7-11.1) INR 2.26 H (0.89-1.13) Sodium 140 (135-145) mmol/L Potassium 4.3 (3.5-5.3) mmol/L Chloride 102 (100-110) mmol/L Carbon Dioxide 33 H (21-32) mmol/L BUN 32 H D (7-18) mg/dL Creatinine 1.1 H (0.55-1.02) mg/dL Est Cr Clr Drug Dosing 32.06 mL/min Estimated GFR (MDRD) 47 L (>60) BUN/Creatinine Ratio 29.1 H (9-20) Glucose 105 (80-116) mg/dL Calcium 9.3 (8.6-10.2) mg/dL Urine Color (YELLOW) Urine Appearance (CLEAR) Urine pH (5.0-6.5) Ur Specific [place] (1.010-1.025) Urine Protein (NEGATIVE) mg/dL Urine Glucose (UA) (NEGATIVE) mg/dL Urine Ketones (NEGATIVE) mg/dL Urine Occult Blood (NEGATIVE) Urine Nitrite (NEGATIVE) Urine Bilirubin (NEGATIVE) Urine Urobilinogen (NEGATIVE) mg/dL Ur Leukocyte Esterase (NEGATIVE) Urine RBC (0) Urine WBC (0) Ur Squamous Epith Cells (NS,R,O) Urine Bacteria (NS) 08/25/18 Range/Units 18:00 WBC (4.5-12.0) X10-3/uL RBC (3.23-5.20) x10(6)uL Hgb (11.5-15.5) g/dL Hct (30.0-51.3) % MCV (80-96) fL MCH (27.7-33.6) pg MCHC (32.2-35.4) g/dL RDW (11.5-15.5) % Plt Count (125-369) X10(3)uL MPV (7.4-10.4) fL Neut % (Auto) (46-82) % Lymph % (Auto) (13-37) % Thomas % (Auto) (4-12) % Eos % (Auto) (1.0-5.0) % Baso % (Auto) (0-2) % Neut # (Auto) (1.6-8.3) # Lymph # (Auto) (0.6-5.0) # Thomas # (Auto) (0.0-1.3) # Eos # (Auto) (0.0-0.8) # Baso # (Auto) (0.0-0.2) # PT (8.7-11.1) INR (0.89-1.13) Sodium (135-145) mmol/L Potassium (3.5-5.3) mmol/L Chloride (100-110) mmol/L Carbon Dioxide (21-32) mmol/L BUN (7-18) mg/dL Creatinine (0.55-1.02) mg/dL Est Cr Clr Drug Dosing mL/min Estimated GFR (MDRD) (>60) BUN/Creatinine Ratio (9-20) Glucose (80-116) mg/dL Calcium (8.6-10.2) mg/dL Urine Color Yellow (YELLOW) Urine Appearance Slightly cloudy (CLEAR) Urine pH 7.0 H (5.0-6.5) Ur Specific [place] 1.010 (1.010-1.025) Urine Protein Negative (NEGATIVE) mg/dL Urine Glucose (UA) Normal (NEGATIVE) mg/dL Urine Ketones Negative (NEGATIVE) mg/dL Urine Occult Blood Negative (NEGATIVE) Urine Nitrite Negative (NEGATIVE) Urine Bilirubin Negative (NEGATIVE) Urine Urobilinogen Normal (NEGATIVE) mg/dL Ur Leukocyte Esterase Negative (NEGATIVE) Urine RBC 0-5 (0) Urine WBC 0-5 (0) Ur Squamous Epith Cells Few H (NS,R,O) Urine Bacteria Few H (NS) Med Orders - Current: Current Medications Acetaminophen (Tylenol Extra Strength) 500 mg PO QID [facility] Last Admin: 08/25/18 20:12 Dose: 500 mg Acetaminophen (Tylenol Extra Strength) 500 mg PO Q4H PRN PRN Reason: Pain Allopurinol (Zyloprim) 100 mg PO DAILY@1200 [facility] Aspirin (Halfprin) 81 mg PO BEDTIME [facility] Last Admin: 08/25/18 20:10 Dose: 81 mg Carisoprodol (Soma) 350 mg PO BEDTIME [facility] Last Admin: 08/25/18 20:10 Dose: 350 mg Cyanocobalamin (Vitamin B12) 1,000 mcg PO DAILY [facility] Escitalopram Oxalate (Lexapro) 20 mg PO DAILY [facility] Furosemide (Lasix) 40 mg PO BID@,18 [facility] Last Admin: 08/25/18 19:11 Dose: 40 mg Gabapentin (Neurontin) 600 mg PO QID [facility] Last Admin: 08/25/18 22:01 Dose: 600 mg Latanoprost (Xalatan 0.005% Ophth Soln) 0 ml EYEBOTH BEDTIME [facility] Losartan Potassium (Cozaar) 50 mg PO DAILY@1200 [facility] Metoprolol Succinate (Toprol Xl) 50 mg PO BID [facility] Last Admin: 08/25/18 20:10 Dose: 50 mg Multivitamins/Minerals/Vitamin C (Tab-A-Terry) 1 tab PO DAILY [facility] Pantoprazole Sodium (Protonix) 40 mg PO DAILY PRN PRN Reason: Heartburn Last Admin: 08/26/18 06:33 Dose: 40 mg Potassium Chloride (Klor-Con 10) 10 meq PO BIDMEALS [facility] Last Admin: 08/25/18 19:11 Dose: 10 meq Sodium Chloride (Saline Flush) 10 ml FLUSH ASDIRECTED PRN PRN Reason: Keep Vein Open Tolterodine Tartrate (Detrol La 24 Hr) 2 mg PO DAILY [facility] Tramadol HCl (Ultram) 50 mg PO BID@08,16 [facility] Last Admin: 08/26/18 07:58 Dose: 50 mg Tramadol HCl (Ultram) 50 mg PO Q4H PRN PRN Reason: PAIN Last Admin: 08/25/18 19:48 Dose: 50 mg Trazodone HCl (Trazodone) 50 mg PO BEDTIME [facility] Last Admin: 08/25/18 20:11 Dose: Not Given Warfarin Sodium (Coumadin) 2 mg PO SuTuThFrSa@1600 [facility] Warfarin Sodium (Coumadin) 3 mg PO MoWe@1600 [facility] Discontinued Medications Acetaminophen (Tylenol Extra Strength) 500 mg PO QID [facility] Latanoprost (Xalatan 0.005% Ophth Soln) 0 ml EYEBOTH BEDTIME [facility] Last Admin: 08/25/18 20:12 Dose: Not Given Trospium (Sanctura) 20 mg PO BID [facility] Last Admin: 08/25/18 20:11 Dose: Not Given - Exam General: Alert, Oriented, Cooperative Lungs: Normal Respiratory Effort Extremities: Other (Left leg in knee immobilizer. No ankle swelling.) Psy/Mental Status: Alert, Normal Affect, Normal Mood - Problem List & Annotations (1) Chronic shoulder pain SNOMED Code(s): 39132602 Code(s): M25.519 - PAIN IN UNSPECIFIED SHOULDER; G89.29 - OTHER CHRONIC PAIN Status: Acute Current Visit: Yes (2) Chronic renal failure, stage 3 (moderate) SNOMED Code(s): 00365358, 300938344 Code(s): N18.3 - CHRONIC KIDNEY DISEASE, STAGE 3 (MODERATE) Status: Acute Current Visit: Yes (3) Palliative care status SNOMED Code(s): 553106221 Code(s): Z51.5 - ENCOUNTER FOR PALLIATIVE CARE Status: Acute Current Visit: Yes (4) Fracture, fibula, proximal SNOMED Code(s): 09521347 Code(s): S82.839A - OTH FRACTURE OF UPPER AND LOWER END OF UNSP FIBULA, INIT Status: Acute Current Visit: Yes Qualifiers: Encounter type: initial encounter Fracture type: closed Fracture morphology: other fracture Laterality: left Qualified Code(s): S82.832A - Other fracture of upper and lower end of left fibula, initial encounter for closed fracture - Problem List Review Problem List Initiated/Reviewed/Updated: Yes - My Orders Last 24 Hours: My Active Orders 08/25/18 16:00 Acetaminophen [Tylenol Extra Strength] 500 mg PO QID 08/25/18 17:00 Gabapentin [Neurontin] 600 mg PO QID 08/25/18 17:33 Acetaminophen [Tylenol Extra Strength] 500 mg PO Q4H PRN 08/25/18 17:56 Pantoprazole [ProTONIX] 40 mg PO DAILY PRN 08/25/18 18:00 Furosemide [Lasix] 40 mg PO BID@ Potassium Chloride [Klor-Con 10] 10 meq PO BIDMEALS 08/25/18 18:17 Consult to Occupational Therapy [OT Evaluation and Treatment] [CONS] Routine 08/25/18 19:41 traMADol [Ultram] 50 mg PO Q4H PRN 08/25/18 21:00 Aspirin [Halfprin] 81 mg PO BEDTIME Carisoprodol [Soma] 350 mg PO BEDTIME Metoprolol Succinate [Toprol XL] 50 mg PO BID traZODone 50 mg PO BEDTIME 08/26/18 07:47 Latanoprost [Xalatan 0.005% Ophth Soln] 0 ml EYEBOTH BEDTIME 08/26/18 08:00 traMADol [Ultram] 50 mg PO BID@08,16 08/26/18 09:00 Cyanocobalamin (Vitamin B12) [Vitamin B12] 1,000 mcg PO DAILY Escitalopram [Lexapro] 20 mg PO DAILY Multivitamins [Tab-A-Terry] 1 tab PO DAILY Tolterodine [Detrol LA 24 Hr] 2 mg PO DAILY traMADol [Ultram] 50 mg PO QID 08/26/18 12:00 Allopurinol [Zyloprim] 100 mg PO DAILY@1200 Losartan [Cozaar] 50 mg PO DAILY@1200 08/26/18 16:00 Warfarin [Coumadin] 2 mg PO SuTuThFrSa@1600 08/27/18 16:00 Warfarin [Coumadin] 3 mg PO MoWe@1600 - Plan Plan:: 1. PT/OT/social service to see. 2. Increase tramadol to 4 times a day 50 mg see if we can get her shoulder pain and light. Under better control.
--- NOTE | 2018-08-26 08:57 | PCM.CONS ---
H&P History of Present Illness - General Date of Service: 08/25/18 Admit Problem/Dx: Patient has little left leg pain and is using leg immobilizer. She still has bilateral chronic shoulder pain which makes it difficult for her to use the walker. She says it may be little bit better. She had one PT session yesterday. Source of Information: Patient, Family History Limitations: Reports: No Limitations - History of Present Illness Onset of Symptoms: Reports: Gradual Duration of Symptoms: Reports: Week(s): Location: Reports: Lower Extremity, Left Quality: Reports: Stabbing, Throbbing Severity: Moderate Improves with: Reports: Immobilization Worsens with: Reports: Movement left leg Pain Score (Numeric/FACES): 5 bilateral shoulders Pain Score (Numeric/FACES): 5 lower back Pain Score (Numeric/FACES): 0 - Related Data Allergies/Adverse Reactions: Allergies Allergy/AdvReac Type Severity Reaction Status Date / Time Penicillins Allergy Intermediate Headache Verified 08/25/18 14:16 oxycodone [Oxycodone] Allergy Mild Lethargy Verified 08/25/18 10:20 cyclobenzaprine HCl Allergy Ringing in Verified 08/25/18 10:20 [From Flexeril] the Ears Home Medications: Home Meds Escitalopram [Lexapro] 20 mg PO DAILY 03/27/14 [History] Furosemide [Lasix] 40 mg PO BID@08,18 03/27/14 [History] Gabapentin [Neurontin] 600 mg PO QID 03/27/14 [History] Multivitamin [Daily Vitamin] 1 each PO DAILY 03/27/14 [History] Potassium Chloride 10 meq PO BIDM 03/27/14 [History] Acetaminophen [Tylenol Extra Strength] 500 mg PO QID 09/20/17 [History] Allopurinol [Zyloprim] 100 mg PO DAILY@1200 09/20/17 [History] Aspirin [Halfprin] 81 mg PO BEDTIME 09/20/17 [History] Carisoprodol 350 mg PO BEDTIME 09/20/17 [History] Cyanocobalamin (Vitamin B-12) [B-12] 1,000 mcg PO DAILY 09/20/17 [History] Metoprolol Succinate [Toprol XL] 50 mg PO BID 09/20/17 [History] traZODone 50 mg PO BEDTIME 09/20/17 [History] Warfarin [Coumadin] 2 mg PO SUTUTHFRSA 04/24/18 [History] Warfarin [Coumadin] 3 mg PO MOWE 04/24/18 [History] Acetaminophen [Tylenol Extra Strength] 500 mg PO Q4H PRN 08/25/18 [History] Bimatoprost [Lumigan 0.01% Ophth Soln] 1 drop EYEBOTH BEDTIME 08/25/18 [History] Losartan [Cozaar] 50 mg PO DAILY@1200 08/25/18 [History] Omeprazole 20 mg PO DAILY PRN 08/25/18 [History] Tolterodine Tartrate [Detrol LA] 2 mg PO DAILY 08/25/18 [History] traMADol [Ultram] 50 mg PO BID@08,16 08/25/18 [History] Past Medical History HEENT History: Reports: Cataract, Glaucoma, Hard of Hearing, Impaired Vision Cardiovascular History: Reports: Blood Clots/VTE/DVT, CAD, Hypertension, [place], SOB on Exertion Other Cardiovascular History: edema, hypokalemia Respiratory History: Reports: PE Gastrointestinal History: Reports: Hepatitis Genitourinary History: Reports: Acute Renal Failure, Urinary Incontinence, Other (See Below) Other Genitourinary History: stage 3 kidney disease 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: Fibroids, Musculoskeletal History: Reports: Arthritis, Back Pain, Chronic, Fibromyalgia, Gout, Osteoarthritis, Osteoporosis, Other (See Below) Other Musculoskeletal History: DJD Neurological History: Reports: Neuropathy, Peripheral Psychiatric History: Reports: Depression, Panic Attack 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 Endocrine/Metabolic History: Reports: Obesity/BMI 30+ Hematologic History: Reports: Anemia, Blood Transfusion(s) Dermatologic History: Reports: Angiodema - Infectious Disease History Infectious Disease History: Reports: Chicken Pox, Hepatitis A, Influenza, Measles, MRSA, Mumps, Rubella - Past Surgical History HEENT Surgical History: Reports: Cataract Surgery, Laser Surgery, Tonsillectomy GI Surgical History: Reports: Appendectomy, Cholecystectomy, Other (See Below) Other GI Surgeries/Procedures: liver bx Female Surgical History: Reports: Hysterectomy Musculoskeletal Surgical History: Reports: Arthroscopic Knee, Arthroscopic Procedure, Joint Replacement, Knee Replacement, Shoulder Replacement, Other ( See Below) Other Musculoskeletal Surgeries/Procedures:: 5 TKR in left and 2TKR in right, back surgery, foot surgery Social & Family History - Family History Family Medical History: Noncontributory HEENT: Reports: Hearing Impairment Musculoskeletal: Reports: Arthritis, Back pain, Chronic, Fibromyalgia, Osteoarthritis, Osteoporosis Endocrine/Metabolic: Reports: Diabetes, type II Oncologic: Reports: Breast Other Oncologic Family History: Her mother had 4 out 6 girls with breast cancer. - Tobacco Use Smoking Status *Q: Never Smoker Second Hand Smoke Exposure: No - Caffeine Use Caffeine Use: Reports: Coffee, Soda - Recreational Drug Use Recreational Drug Use: No H&P Review of Systems - Review of Systems: Review Of Systems: See Below General: Reports: No Symptoms HEENT: Reports: No Symptoms Pulmonary: Reports: No Symptoms Cardiovascular: Reports: No Symptoms Gastrointestinal: Reports: No Symptoms Genitourinary: Reports: No Symptoms Musculoskeletal: Reports: Leg Pain Skin: Reports: No Symptoms Psychiatric: Reports: No Symptoms Neurological: Reports: No Symptoms Hematologic/Lymphatic: Reports: No Symptoms Immunologic: Reports: No Symptoms Exam - Exam Exam: See Below - Vital Signs Vital Signs: Last Vital Signs Temp 97.9 F 08/26/18 00:00 Pulse 66 08/26/18 00:00 Resp 20 08/26/18 00:00 BP 145/65 H 08/26/18 00:00 Pulse Ox 93 L 08/26/18 00:00 Weight: 198 lb 3.2 oz - Exam General: Alert, Oriented, Other HEENT: PERRLA, Conjunctiva Clear, EOMI, Mucosa Moist & [place], Pupils Equal, Pupils Reactive Neck: Supple, Trachea Midline Lungs: Normal Respiratory Effort Extremities: Leg Pain Skin: Warm, Dry, Intact Neuro Extensive - Mental Status: Alert, Oriented x3, Normal Mood/Affect, Normal Cognition, Memory Intact Psychiatric: Alert, Normal Affect, Normal Mood Physical Exam Comments:: ttp left proximal fibula. mild ecchymosis left ankle. mild pain with ankle rom. full ankle rom - Patient Data Lab Results Last 24 hrs: Laboratory Results - last 24 hr 08/25/18 08/25/18 08/25/18 Range/Units 11:00 11:00 11:00 WBC 4.8 (4.5-12.0) X10-3/uL RBC 3.31 (3.23-5.20) x10(6)uL Hgb 11.3 L (11.5-15.5) g/dL Hct 32.4 (30.0-51.3) % MCV 97.7 H (80-96) fL MCH 34.1 H (27.7-33.6) pg MCHC 34.9 (32.2-35.4) g/dL RDW 14.1 (11.5-15.5) % Plt Count 156 (125-369) X10(3)uL MPV 7.6 (7.4-10.4) fL Neut % (Auto) 68.4 (46-82) % Lymph % (Auto) 18.2 (13-37) % [place] % (Auto) 7.7 (4-12) % Eos % (Auto) 5 (1.0-5.0) % Baso % (Auto) 1 (0-2) % Neut # (Auto) 3.2 (1.6-8.3) # Lymph # (Auto) 0.9 (0.6-5.0) # [place] # (Auto) 0.4 (0.0-1.3) # Eos # (Auto) 0.2 (0.0-0.8) # Baso # (Auto) 0.0 (0.0-0.2) # PT 21.7 H (8.7-11.1) INR 2.26 H (0.89-1.13) Sodium 140 (135-145) mmol/L Potassium 4.3 (3.5-5.3) mmol/L Chloride 102 (100-110) mmol/L Carbon Dioxide 33 H (21-32) mmol/L BUN 32 H D (7-18) mg/dL Creatinine 1.1 H (0.55-1.02) mg/dL Est Cr Clr Drug Dosing 32.06 mL/min Estimated GFR (MDRD) 47 L (>60) BUN/Creatinine Ratio 29.1 H (9-20) Glucose 105 (80-116) mg/dL Calcium 9.3 (8.6-10.2) mg/dL Urine Color (YELLOW) Urine Appearance (CLEAR) Urine pH (5.0-6.5) Ur Specific [place] (1.010-1.025) Urine Protein (NEGATIVE) mg/dL Urine Glucose (UA) (NEGATIVE) mg/dL Urine Ketones (NEGATIVE) mg/dL Urine Occult Blood (NEGATIVE) Urine Nitrite (NEGATIVE) Urine Bilirubin (NEGATIVE) Urine Urobilinogen (NEGATIVE) mg/dL Ur Leukocyte Esterase (NEGATIVE) Urine RBC (0) Urine WBC (0) Ur Squamous Epith Cells (NS,R,O) Urine Bacteria (NS) 08/25/18 Range/Units 18:00 WBC (4.5-12.0) X10-3/uL RBC (3.23-5.20) x10(6)uL Hgb (11.5-15.5) g/dL Hct (30.0-51.3) % MCV (80-96) fL MCH (27.7-33.6) pg MCHC (32.2-35.4) g/dL RDW (11.5-15.5) % Plt Count (125-369) X10(3)uL MPV (7.4-10.4) fL Neut % (Auto) (46-82) % Lymph % (Auto) (13-37) % [place] % (Auto) (4-12) % Eos % (Auto) (1.0-5.0) % Baso % (Auto) (0-2) % Neut # (Auto) (1.6-8.3) # Lymph # (Auto) (0.6-5.0) # [place] # (Auto) (0.0-1.3) # Eos # (Auto) (0.0-0.8) # Baso # (Auto) (0.0-0.2) # PT (8.7-11.1) INR (0.89-1.13) Sodium (135-145) mmol/L Potassium (3.5-5.3) mmol/L Chloride (100-110) mmol/L Carbon Dioxide (21-32) mmol/L BUN (7-18) mg/dL Creatinine (0.55-1.02) mg/dL Est Cr Clr Drug Dosing mL/min Estimated GFR (MDRD) (>60) BUN/Creatinine Ratio (9-20) Glucose (80-116) mg/dL Calcium (8.6-10.2) mg/dL Urine Color Yellow (YELLOW) Urine Appearance Slightly cloudy (CLEAR) Urine pH 7.0 H (5.0-6.5) Ur Specific [place] 1.010 (1.010-1.025) Urine Protein Negative (NEGATIVE) mg/dL Urine Glucose (UA) Normal (NEGATIVE) mg/dL Urine Ketones Negative (NEGATIVE) mg/dL Urine Occult Blood Negative (NEGATIVE) Urine Nitrite Negative (NEGATIVE) Urine Bilirubin Negative (NEGATIVE) Urine Urobilinogen Normal (NEGATIVE) mg/dL Ur Leukocyte Esterase Negative (NEGATIVE) Urine RBC 0-5 (0) Urine WBC 0-5 (0) Ur Squamous Epith Cells Few H (NS,R,O) Urine Bacteria Few H (NS) Result Diagrams: 08/25/18 11:00 08/25/18 11:00 Consult PN Assessment/Plan POD#: 0 Procedures: Procedures AQUATIC THERAPY/EXERCISES (08/01/18) ASSAY OF TROPONIN QUANT (04/24/18) AUTOMATED LEUKOCYTE COUNT (04/15/14) AUTOMATED PLATELET COUNT (04/15/14) C-REACTIVE PROTEIN (04/24/18) COMPLETE CBC W/AUTO DIFF WBC (04/24/18) COMPREHEN METABOLIC PANEL (04/24/18) CT ABD & PELV W/CONTRAST (12/03/14) DXA BONE DENSITY AXIAL (09/02/14) ELECTROCARDIOGRAM TRACING (04/24/18) EMERGENCY DEPT VISIT (08/19/18) EMERGENCY DEPT VISIT (04/24/18) EMERGENCY DEPT VISIT (08/07/13) EXTREMITY STUDY (04/24/18) FIBRIN DEGRADATION QUANT (04/24/18) HEMOGLOBIN (04/15/14) MICROBE SUSCEPTIBLE CHAD (11/03/17) OFFICE/OUTPATIENT VISIT EST (11/03/17) OT EVAL LOW COMPLEX 30 MIN (08/01/18) OT EVALUATION (05/31/14) PHYSICAL MEDICINE PROCEDURE (04/01/18) PROTHROMBIN TIME (08/19/18) ROUTINE VENIPUNCTURE (08/19/18) RPR S/N/AX/GEN/TRNK2.6-7.5CM (08/07/13) THERAPEUTIC EXERCISES (08/01/18) ULTRASOUND THERAPY (04/29/18) URINALYSIS AUTO W/SCOPE (04/24/18) URINE BACTERIA CULTURE (11/03/17) URINE CULTURE/COLONY COUNT (11/03/17) (1) Left ankle sprain SNOMED Code(s): 05071359, 03235562255019176 Code(s): S93.402A - SPRAIN OF UNSPECIFIED LIGAMENT OF LEFT ANKLE, INIT ENCNTR Current Visit: Yes (2) Fracture, fibula, proximal SNOMED Code(s): 09807321 Code(s): S82.839A - OTH FRACTURE OF UPPER AND LOWER END OF UNSP FIBULA, INIT Current Visit: Yes Qualifiers: Encounter type: initial encounter Fracture type: closed Fracture morphology: other fracture Laterality: left Qualified Code(s): S82.832A - Other fracture of upper and lower end of left fibula, initial encounter for closed fracture Problem List Initiated/Reviewed/Updated: Yes Plan: a: 1) left ankle sprain 2) left proximal fibula fx p: 1) wbat lle 2) may wear immobilizer for compression as tolerated Patient History Reviewed: Yes Admission H&P Reviewed: Yes Notified Requestor: Yes
[2018-08-26] MEDS: Furosemide 40 MG Tab PO SCH ×2 (10:02→17:12)
[2018-08-26] MEDS: Tolterodine 2 MG Cap.ER PO SCH (10:02)
[2018-08-26] MEDS: Potassium Chloride 10 MEQ Tab.ER PO SCH ×2 (10:02→17:12)
[2018-08-26] MEDS: Metoprolol Succinate 50 MG Tab.ER PO SCH ×2 (10:03→20:15)
[2018-08-26] MEDS: Escitalopram 20 MG Tab PO SCH (10:03)
[2018-08-26] MEDS: Multivitamin Tab PO SCH (10:03)
[2018-08-26] MEDS: Gabapentin 600 MG Tab PO SCH ×4 (10:03→20:14)
[2018-08-26] MEDS: Cyanocobalamin (Vitamin B12) 1,000 MCG Tab PO SCH (10:04)
[2018-08-26] MEDS: Acetaminophen 500 MG Tab PO SCH ×4 (10:04→20:14)
[2018-08-26] MEDS ORDERED: Warfarin Sliding Scale PO SCH (10:30)
--- NOTE | 2018-08-26 11:58 | US ---
INDICATION: Leg pain, question DVT. DUPLEX ULTRASOUND, LEFT LOWER EXTREMITY VEINS: Utilizing 2-D real time, duplex Doppler spectral analysis and color flow imaging, examination of the left lower extremity veins revealed no evidence of deep venous thrombosis or obstruction. Compression views showed no abnormal lack of compression to suggest thrombosis. No evidence of incompetence of the valves was identified. Study is essentially unchanged from 02/12/2012, except that the thickening of the wall in the proximal deep femoral vein is not identified on the current study. IMPRESSION: Duplex ultrasound, left lower extremity veins, shows no evidence of deep venous thrombosis or incompetence. MTDD
[2018-08-26] MEDS: Losartan 50 MG Tab PO SCH (12:09)
[2018-08-26] MEDS: Allopurinol 100 MG Tab PO SCH (12:09)
[2018-08-26] MEDS: traMADol 50 MG Tab PO SCH ×3 (13:05→20:19)
[2018-08-26] MEDS ORDERED: Warfarin 2 MG Tab PO SCH (16:00)
[2018-08-26] MEDS ORDERED: Warfarin 4 MG Tab PO SCH (16:00)
[2018-08-26] MEDS: Latanoprost 0.005% Ophth Soln 2.5 ML Bottle EYEBOTH SCH (20:13)
[2018-08-26] MEDS: Aspirin 81 MG Tab.EC PO SCH (20:14)
[2018-08-26] MEDS: traZODone 50 MG Tab PO SCH (20:14)
--- NOTE | 2018-08-27 08:35 | PCM.PN ---
- General Info Date of Service: 08/27/18 Admission Dx/Problem (Free Text): Patient states that the 4 times a day tramadol's he's the pain somewhat. She still has left shoulder pain and it's helped her back and leg pain much better. He says she is getting up to walk now with assist. - Patient Data Vitals - Most Recent: Last Vital Signs Temp 97.8 F 08/27/18 03:30 Pulse 65 08/27/18 03:30 Resp 20 08/27/18 03:30 BP 123/59 L 08/27/18 03:30 Pulse Ox 93 L 08/27/18 03:30 Weight - Most Recent: 198 lb 3.2 oz I&O - Last 24 Hours: Intake & Output 08/26/18 08/27/18 08/27/18 22:59 06:59 14:59 Output Total 800 Balance -800 Lab Results Last 24 Hours: Laboratory Results - last 24 hr 08/26/18 08/27/18 Range/Units 09:33 06:20 PT 16.6 H 17.2 H (8.7-11.1) INR 1.72 H 1.78 H (0.89-1.13) Med Orders - Current: Current Medications Acetaminophen (Tylenol Extra Strength) 500 mg PO QID [facility] Last Admin: 08/26/18 20:14 Dose: 500 mg Acetaminophen (Tylenol Extra Strength) 500 mg PO Q4H PRN PRN Reason: Pain Last Admin: 08/27/18 03:41 Dose: 500 mg Allopurinol (Zyloprim) 100 mg PO DAILY@1200 [facility] Last Admin: 08/26/18 12:09 Dose: 100 mg Aspirin (Halfprin) 81 mg PO BEDTIME [facility] Last Admin: 08/26/18 20:14 Dose: 81 mg Carisoprodol (Soma) 350 mg PO BEDTIME [facility] Last Admin: 08/26/18 20:20 Dose: 350 mg Cyanocobalamin (Vitamin B12) 1,000 mcg PO DAILY [facility] Last Admin: 08/26/18 10:04 Dose: 1,000 mcg Escitalopram Oxalate (Lexapro) 20 mg PO DAILY [facility] Last Admin: 08/26/18 10:03 Dose: 20 mg Furosemide (Lasix) 40 mg PO BID@ [facility] Last Admin: 08/26/18 17:12 Dose: 40 mg Gabapentin (Neurontin) 600 mg PO QID [facility] Last Admin: 08/26/18 20:14 Dose: 600 mg Latanoprost (Xalatan 0.005% Ophth Soln) 0 ml EYEBOTH BEDTIME [facility] Last Admin: 08/26/18 20:13 Dose: 1 drop Losartan Potassium (Cozaar) 50 mg PO DAILY@1200 [facility] Last Admin: 08/26/18 12:09 Dose: 50 mg Metoprolol Succinate (Toprol Xl) 50 mg PO BID [facility] Last Admin: 08/26/18 20:15 Dose: 50 mg Multivitamins/Minerals/Vitamin C (Tab-A-Terry) 1 tab PO DAILY [facility] Last Admin: 08/26/18 10:03 Dose: 1 tab Pantoprazole Sodium (Protonix) 40 mg PO DAILY PRN PRN Reason: Heartburn Last Admin: 08/26/18 06:33 Dose: 40 mg Potassium Chloride (Klor-Con 10) 10 meq PO BIDMEALS [facility] Last Admin: 08/26/18 17:12 Dose: 10 meq Sodium Chloride (Saline Flush) 10 ml FLUSH ASDIRECTED PRN PRN Reason: Keep Vein Open Tolterodine Tartrate (Detrol La 24 Hr) 2 mg PO DAILY [facility] Last Admin: 08/26/18 10:02 Dose: 2 mg Tramadol HCl (Ultram) 50 mg PO QID [facility] Last Admin: 08/26/18 20:19 Dose: 50 mg Trazodone HCl (Trazodone) 50 mg PO BEDTIME [facility] Last Admin: 08/26/18 20:14 Dose: 50 mg Warfarin Sodium (Coumadin Sliding Scale) 1 each PO ASDIRECTED [facility] Discontinued Medications Acetaminophen (Tylenol Extra Strength) 500 mg PO QID [facility] Latanoprost (Xalatan 0.005% Ophth Soln) 0 ml EYEBOTH BEDTIME [facility] Last Admin: 08/25/18 20:12 Dose: Not Given Tramadol HCl (Ultram) 50 mg PO BID@08,16 [facility] Last Admin: 08/26/18 07:58 Dose: 50 mg Tramadol HCl (Ultram) 50 mg PO Q4H PRN PRN Reason: PAIN Last Admin: 08/25/18 19:48 Dose: 50 mg Trospium (Sanctura) 20 mg PO BID [facility] Last Admin: 08/25/18 20:11 Dose: Not Given Warfarin Sodium (Coumadin) 2 mg PO SuTuThFrSa@1600 [facility] Warfarin Sodium (Coumadin) 3 mg PO MoWe@1600 [facility] Warfarin Sodium (Coumadin) 4 mg PO 08/26/18@1600 [facility] Stop: 08/26/18 16:30 Last Admin: 08/26/18 15:26 Dose: 4 mg - Exam General: Alert, Oriented, Cooperative Lungs: Normal Respiratory Effort - Problem List & Annotations (1) Chronic shoulder pain SNOMED Code(s): 71848078 Code(s): M25.519 - PAIN IN UNSPECIFIED SHOULDER; G89.29 - OTHER CHRONIC PAIN Status: Acute Current Visit: Yes (2) Chronic renal failure, stage 3 (moderate) SNOMED Code(s): 56770290, 030596535 Code(s): N18.3 - CHRONIC KIDNEY DISEASE, STAGE 3 (MODERATE) Status: Acute Current Visit: Yes (3) Palliative care status SNOMED Code(s): 812006441 Code(s): Z51.5 - ENCOUNTER FOR PALLIATIVE CARE Status: Acute Current Visit: Yes (4) Fracture, fibula, proximal SNOMED Code(s): 89218427 Code(s): S82.839A - OTH FRACTURE OF UPPER AND LOWER END OF UNSP FIBULA, INIT Status: Acute Current Visit: Yes Qualifiers: Encounter type: initial encounter Fracture type: closed Fracture morphology: other fracture Laterality: left Qualified Code(s): S82.832A - Other fracture of upper and lower end of left fibula, initial encounter for closed fracture - Problem List Review Problem List Initiated/Reviewed/Updated: Yes - My Orders Last 24 Hours: My Active Orders 08/26/18 07:47 Latanoprost [Xalatan 0.005% Ophth Soln] 0 ml EYEBOTH BEDTIME 08/26/18 09:00 Cyanocobalamin (Vitamin B12) [Vitamin B12] 1,000 mcg PO DAILY Escitalopram [Lexapro] 20 mg PO DAILY Multivitamins [Tab-A-Terry] 1 tab PO DAILY Tolterodine [Detrol LA 24 Hr] 2 mg PO DAILY 08/26/18 09:41 Shoulder Comp Bi [CR] Routine 08/26/18 10:30 Warfarin Sliding Scale [Coumadin Sliding Scale] 1 each PO ASDIRECTED 08/26/18 12:00 Allopurinol [Zyloprim] 100 mg PO DAILY@1200 Losartan [Cozaar] 50 mg PO DAILY@1200 08/26/18 13:00 traMADol [Ultram] 50 mg PO QID 08/28/18 05:10 INR,PT,PROTHROMBIN TIME [COAG] DAILY 08/29/18 05:10 INR,PT,PROTHROMBIN TIME [COAG] DAILY 08/30/18 05:10 INR,PT,PROTHROMBIN TIME [COAG] DAILY - Assessment Assessment:: Dr. Lyn orders CT scan and will await for results. PT/OT to see how she's doing for rehabilitation. - Plan Plan:: 1. PT/OT/social service to see. 2. Increase tramadol to 4 times a day 50 mg see if we can get her shoulder pain and light. Under better control.
[2018-08-27] MEDS: Escitalopram 20 MG Tab PO SCH (08:40)
[2018-08-27] MEDS: Tolterodine 2 MG Cap.ER PO SCH (08:40)
[2018-08-27] MEDS: Furosemide 40 MG Tab PO SCH ×2 (08:40→17:59)
[2018-08-27] MEDS: Potassium Chloride 10 MEQ Tab.ER PO SCH ×2 (08:40→17:59)
[2018-08-27] MEDS: Gabapentin 600 MG Tab PO SCH ×4 (08:41→20:27)
[2018-08-27] MEDS: Metoprolol Succinate 50 MG Tab.ER PO SCH ×2 (08:41→20:34)
[2018-08-27] MEDS: Multivitamin Tab PO SCH (08:41)
[2018-08-27] MEDS: Acetaminophen 500 MG Tab PO SCH ×4 (08:42→20:29)
[2018-08-27] MEDS: Cyanocobalamin (Vitamin B12) 1,000 MCG Tab PO SCH (08:43)
[2018-08-27] MEDS: traMADol 50 MG Tab PO SCH ×4 (08:45→20:34)
--- NOTE | 2018-08-27 09:03 | CR ---
INDICATION: Clavicular pain on the right - left shoulder pain - fell yesterday. BILATERAL SHOULDERS, COMPLETE: Nine images of the shoulders were obtained in multiple projections, 08/26/2018 and were compared with 03/28/[address] [facility] examination. 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 Evidence of previous impingement on the acromion and distal clavicle is noted with deformity in that area of the acromion and distal clavicle. A definite new acute process was not identified. No acute fracture or dislocation was seen. IMPRESSION: Satisfactory appearance - stable appearance postop TSA on the right. 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 The orientation with the humeral head component of the TSA is unchanged from the previous study. There is again noted a bony fragment inferior to the glenoid labrum, unchanged in position. Three phase nuclear bone imaging may be helpful for confirmation of loosening, depending upon history of surgery. SYEDD
--- NOTE | 2018-08-27 09:22 | CT ---
INDICATION: Pain, question dislocation, fell yesterday. CT UPPER EXTREMITIES FOR SHOULDERS: Spiral 2.5 mm axial sections were obtained through the shoulders with sagittal and coronal reconstructions, 08/26/2018. No comparisons, except for plain films, were available. Total exam DLP = 893.08 mGy-cm. 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 There is some lucency suggested surrounding the screws fixing the glenoid component in place on the left; however, this finding is not as well visualized as on plain films. A definite acute fracture site was not seen. No gross dislocation of the joint components was seen bilaterally. Degenerative changes are also noted at the AC joints. The clavicles show no evidence for an acute fracture. IMPRESSION: Suggestion of loosening at the screws of the glenoid component of the left total shoulder arthroplasty. This could be further confirmed by 3- phase nuclear bone imaging, as felt to be clinically necessary. MTDD
[2018-08-27] MEDS ORDERED: Enoxaparin 40 MG/0.4 ML Syringe SUBCUT ONE (10:00)
[2018-08-27] MEDS: Allopurinol 100 MG Tab PO SCH (13:21)
[2018-08-27] MEDS: Losartan 50 MG Tab PO SCH (13:21)
--- NOTE | 2018-08-27 14:02 | PCM.SN ---
- Free Text/Narrative Note: Evaluated CT of left shoulder. Shows loosening of screws in glenoid component. Contacted primary surgeon, Dr. Shetty, and we will arrange an appointment for patient. We have follow up with patient scheduled for her left proximal fibula fracture.
[2018-08-27] MEDS ORDERED: Warfarin 3 MG Tab PO SCH (16:00)
[2018-08-27] MEDS ORDERED: Warfarin 5 MG Tab PO SCH (16:00)
[2018-08-27] MEDS: Aspirin 81 MG Tab.EC PO SCH (20:27)
[2018-08-27] MEDS: Latanoprost 0.005% Ophth Soln 2.5 ML Bottle EYEBOTH SCH (20:29)
[2018-08-27] MEDS: traZODone 50 MG Tab PO SCH (20:29)
[2018-08-28] MEDS: Potassium Chloride 10 MEQ Tab.ER PO SCH (07:47)
[2018-08-28] MEDS: Furosemide 40 MG Tab PO SCH (07:48)
[2018-08-28] MEDS: Gabapentin 600 MG Tab PO SCH ×2 (08:00→12:46)
[2018-08-28] MEDS: Metoprolol Succinate 50 MG Tab.ER PO SCH (08:00)
[2018-08-28] MEDS: Escitalopram 20 MG Tab PO SCH (08:00)
[2018-08-28] MEDS: Multivitamin Tab PO SCH (08:00)
[2018-08-28] MEDS: Tolterodine 2 MG Cap.ER PO SCH (08:00)
[2018-08-28 08:01] VITALS: BP 139/69
[2018-08-28] MEDS: Acetaminophen 500 MG Tab PO SCH ×2 (08:01→12:46)
[2018-08-28] MEDS: traMADol 50 MG Tab PO SCH ×3 (08:01→13:00)
[2018-08-28] MEDS: Cyanocobalamin (Vitamin B12) 1,000 MCG Tab PO SCH (08:01)
--- NOTE | 2018-08-28 10:06 | PCM.PN ---
- General Info Date of Service: 08/28/18 Subjective Update: Patient states that the pain is controlled on tramadol, and she is ready to go home today. She feels some pain of the left shoulder, physical and occupational therapy, orthopedics have followed her as well. Functional Status: Reports: Pain Controlled, Tolerating Diet, Ambulating - Review of Systems General: Reports: No Symptoms HEENT: Reports: No Symptoms Pulmonary: Reports: No Symptoms - Patient Data Vitals - Most Recent: Last Vital Signs Temp 97.6 F 08/28/18 07:55 Pulse 63 08/28/18 08:00 Resp 16 08/28/18 07:55 BP 139/69 08/28/18 08:00 Pulse Ox 94 L 08/28/18 07:55 Weight - Most Recent: 89.902 kg Lab Results Last 24 Hours: Laboratory Results - last 24 hr 08/28/18 Range/Units 06:05 PT 23.2 H (8.7-11.1) INR 2.41 H (0.89-1.13) Med Orders - Current: Current Medications Acetaminophen (Tylenol Extra Strength) 500 mg PO QID [facility] Last Admin: 08/28/18 08:01 Dose: 500 mg Acetaminophen (Tylenol Extra Strength) 500 mg PO Q4H PRN PRN Reason: Pain Last Admin: 08/27/18 03:41 Dose: 500 mg Allopurinol (Zyloprim) 100 mg PO DAILY@1200 [facility] Last Admin: 08/27/18 13:21 Dose: 100 mg Aspirin (Halfprin) 81 mg PO BEDTIME [facility] Last Admin: 08/27/18 20:27 Dose: 81 mg Carisoprodol (Soma) 350 mg PO BEDTIME [facility] Last Admin: 08/27/18 20:33 Dose: 350 mg Cyanocobalamin (Vitamin B12) 1,000 mcg PO DAILY [facility] Last Admin: 08/28/18 08:01 Dose: 1,000 mcg Escitalopram Oxalate (Lexapro) 20 mg PO DAILY [facility] Last Admin: 08/28/18 08:00 Dose: 20 mg Furosemide (Lasix) 40 mg PO BID@ [facility] Last Admin: 08/28/18 07:48 Dose: 40 mg Gabapentin (Neurontin) 600 mg PO QID [facility] Last Admin: 08/28/18 08:00 Dose: 600 mg Latanoprost (Xalatan 0.005% Oph Soln) 0 ml EYEBOTH BEDTIME [facility] Last Admin: 08/27/18 20:29 Dose: 1 drop Losartan Potassium (Cozaar) 50 mg PO DAILY@1200 [facility] Last Admin: 08/27/18 13:21 Dose: 50 mg Metoprolol Succinate (Toprol Xl) 50 mg PO BID [facility] Last Admin: 08/28/18 08:00 Dose: 50 mg Multivitamins/Minerals/Vitamin C (Tab-A-Terry) 1 tab PO DAILY [facility] Last Admin: 08/28/18 08:00 Dose: 1 tab Pantoprazole Sodium (Protonix) 40 mg PO DAILY PRN PRN Reason: Heartburn Last Admin: 08/26/18 06:33 Dose: 40 mg Potassium Chloride (Klor-Con 10) 10 meq PO BIDMEALS [facility] Last Admin: 08/28/18 07:47 Dose: 10 meq Sodium Chloride (Saline Flush) 10 ml FLUSH ASDIRECTED PRN PRN Reason: Keep Vein Open Tolterodine Tartrate (Detrol La 24 Hr) 2 mg PO DAILY [facility] Last Admin: 08/28/18 08:00 Dose: 2 mg Tramadol HCl (Ultram) 50 mg PO QID [facility] Last Admin: 08/28/18 08:01 Dose: 50 mg Trazodone HCl (Trazodone) 50 mg PO BEDTIME [facility] Last Admin: 08/27/18 20:29 Dose: 50 mg Warfarin Sodium (Coumadin Sliding Scale) 1 each PO ASDIRECTED [facility] Warfarin Sodium (Coumadin) 3 mg PO MoWe@1600 [facility] Warfarin Sodium (Coumadin) 2 mg PO SuTuThFrSa@1600 [facility] Discontinued Medications Acetaminophen (Tylenol Extra Strength) 500 mg PO QID [facility] Enoxaparin Sodium (Lovenox) 40 mg SUBCUT ONETIME ONE Stop: 08/27/18 10:01 Last Admin: 08/27/18 10:50 Dose: 40 mg Latanoprost (Xalatan 0.005% Ophth Soln) 0 ml EYEBOTH BEDTIME [facility] Last Admin: 08/25/18 20:12 Dose: Not Given Tramadol HCl (Ultram) 50 mg PO BID@08,16 [facility] Last Admin: 08/26/18 07:58 Dose: 50 mg Tramadol HCl (Ultram) 50 mg PO Q4H PRN PRN Reason: PAIN Last Admin: 08/25/18 19:48 Dose: 50 mg Trospium (Sanctura) 20 mg PO BID [facility] Last Admin: 08/25/18 20:11 Dose: Not Given Warfarin Sodium (Coumadin) 2 mg PO SuTuThFrSa@1600 [facility] Warfarin Sodium (Coumadin) 3 mg PO MoWe@1600 [facility] Warfarin Sodium (Coumadin) 4 mg PO 08/26/18@1600 [facility] Stop: 08/26/18 16:30 Last Admin: 08/26/18 15:26 Dose: 4 mg Warfarin Sodium (Coumadin) 5 mg PO 08/27/18@1600 [facility] Stop: 08/27/18 16:30 Last Admin: 08/27/18 16:39 Dose: 5 mg - Exam General: Alert HEENT: Pupils Equal Neck: Supple Extremities: Normal Range of Motion, No Pedal Edema, Redness (Left leg). No: Increased Warmth - Problem List & Annotations (1) Fracture, fibula, proximal SNOMED Code(s): 21136408 Code(s): S82.839A - OTH FRACTURE OF UPPER AND LOWER END OF UNSP FIBULA, INIT Status: Acute Current Visit: Yes Qualifiers: Encounter type: subsequent encounter Fracture type: closed Fracture morphology: other fracture Laterality: left Qualified Code(s): S82.832A - Other fracture of upper and lower end of left fibula, initial encounter for closed fracture (2) Frequent falls SNOMED Code(s): 515410225 Code(s): R29.6 - REPEATED FALLS Status: Chronic Current Visit: No (3) Status post shoulder surgery SNOMED Code(s): 008177761, 62682152, 007114856 Code(s): Z98.890 - OTHER SPECIFIED POSTPROCEDURAL STATES Status: Acute Current Visit: No (4) USP current use of anticoagulant SNOMED Code(s): 630429388 Code(s): Z79.01 - FDC (CURRENT) USE OF ANTICOAGULANTS Status: Chronic Current Visit: No - Problem List Review Problem List Initiated/Reviewed/Updated: Yes - My Orders Last 24 Hours: My Active Orders 08/28/18 16:00 Warfarin [Coumadin] 2 mg PO SuTuThFrSa@1600 09/01/18 16:00 Warfarin [Coumadin] 3 mg PO MoWe@1600 - Assessment Assessment:: Dr. Lyn orders CT scan and will await for results. PT/OT to see how she's doing for rehabilitation. - Plan Plan:: DC home today. She will be mostly homebound because of pain on movement, and she 'll need home health to manage medications, physical and occupational therapy and assess for risk for falls at home
[2018-08-28] MEDS: Losartan 50 MG Tab PO SCH (12:45)
[2018-08-28] MEDS: Allopurinol 100 MG Tab PO SCH (12:45)
[2018-08-28] MEDS ORDERED: Warfarin 2 MG Tab PO SCH (16:00)
--- NOTE | 2018-08-29 03:15 | DISCH ---
DISCHARGE DATE: 08/28/2018 REASONS FOR DISCHARGE: 1. Fibular fracture, left. 2. Shoulder pain, chronic, status post shoulder surgery. 3. Long-term anticoagulation. 4. History of PE. 5. CKD, stage 3. DISCHARGE DIAGNOSES: 1. Fibular fracture, left. 2. Shoulder pain, chronic, status post shoulder surgery. 3. Long-term anticoagulation. 4. History of pulmonary embolism. 5. Chronic kidney disease, stage 3. CONSULTATIONS: 1. Dr. Lyn, Orthopedics. 2. Physical and Occupational Therapy. BRIEF HISTORY: Fadumo is an 82-year-old pleasant female, who fell in a restaurant in [place] a few days ago and was in the ER. Initially, no fracture was diagnosed, but she returned with pain and swelling of the left leg that revealed a fracture that was new on the fibula. She also has a history of chronic shoulder pain with surgery in the left one as recent as October last year. It was difficult for her to ambulate and bear weight. She was admitted subsequently, and subsequently, Orthopedics was consulted. She has been working with Physical Therapy and Orthopedics, and she feels ready today to go back home on tramadol for pain control with physical and occupational therapy at home and followup with the Orthopedic physician for the left shoulder and Dr. Lyn for the fibula. DISCHARGE MEDICATIONS: 1. Acetaminophen p.r.n. 2. Allopurinol 100 mg a day. 3. Aspirin 81 mg a day. 4. Soma 350 mg at bedtime. 5. Furosemide 40 mg b.i.d. 6. Lexapro 20 mg a day. 7. Losartan 50 mg a day. 8. Metoprolol 50 mg b.i.d. 9. One multivitamin a day. 10.Detrol LA 2 mg daily. 11.Tramadol 50 mg q.i.d. p.r.n. 12.Trazodone 50 mg at bedtime. 13.Coumadin as previously scheduled. FOLLOWUP: The patient will have an INR within a week and also see Olive Browning in a week. She will continue home health services as detailed above because of homebound status, unable to ambulate at this present time. TIME SPENT: Please note that I spent more than 35 minutes in the discharge of the patient. /[id number] DASIA
[2018-09-01] MEDS ORDERED: Warfarin 3 MG Tab PO SCH (16:00)
== END 2018-08-28 14:50 | disposition home health service (06) | DRG 563 ==
LOC: FB.ED 10:14 → FB.MS 11:57
PROVIDERS: ADMIT Family Medicine; ATTEND Family Medicine
DX: S82.492A Other fracture of shaft of left fibula, initial encounter for closed fracture (principal); T84.038A Mechanical loosening of other internal prosthetic joint, initial encounter; W19.XXXA Unspecified fall, initial encounter; I12.9 Hypertensive chronic kidney disease with stage 1 through stage 4 chronic kidney disease, or unspecified chronic kidney disease; N18.3 Chronic kidney disease, stage 3 (moderate); M19.90 Unspecified osteoarthritis, unspecified site; M79.7 Fibromyalgia; M10.9 Gout, unspecified; F32.9 Major depressive disorder, single episode, unspecified; E66.9 Obesity, unspecified; D64.9 Anemia, unspecified; F41.0 Panic disorder [episodic paroxysmal anxiety]; H40.9 Unspecified glaucoma; H54.7 Unspecified visual loss; H91.90 Unspecified hearing loss, unspecified ear; R32 Unspecified urinary incontinence; G89.29 Other chronic pain; M25.519 Pain in unspecified shoulder; I25.2 Old myocardial infarction; Z90.710 Acquired absence of both cervix and uterus; Z86.718 Personal history of other venous thrombosis and embolism; Z86.711 Personal history of pulmonary embolism; Z79.01 Long term (current) use of anticoagulants; Z88.5 Allergy status to narcotic agent; Z88.0 Allergy status to penicillin; Z88.8 Allergy status to other drugs, medicaments and biological substances; Z79.899 Other long term (current) drug therapy; Z79.82 Long term (current) use of aspirin; M79.605 Pain in left leg; R06.02 Shortness of breath; Z96.653 Presence of artificial knee joint, bilateral; M25.512 Pain in left shoulder; M25.511 Pain in right shoulder; I25.10 Atherosclerotic heart disease of native coronary artery without angina pectoris; G62.9 Polyneuropathy, unspecified; Z90.49 Acquired absence of other specified parts of digestive tract; Z51.5 Encounter for palliative care; Y83.8 Other surgical procedures as the cause of abnormal reaction of the patient, or of later complication, without mention of misadventure at the time of the procedure; Z96.612 Presence of left artificial shoulder joint
CPT/HCPCS: 36415; 72170; 73030-50; 73200-LT; 73552-LT; 73590-LT; 80048; 81001; 85025; 85610; 93971-LT; 97116-GP; 97161-GP; 97166-GO; 99284; A9270-GY; J1650

== ENCOUNTER 2019-03-09 19:55 | Emergency (ER) | payer MEDICARE ==
[2019-03-09] MEDS ORDERED: fentaNYL 100 MCG/2 ML SDV IM ONE (20:50)
--- NOTE | 2019-03-09 21:20 | EDM.PDOC ---
ED HPI GENERAL MEDICAL PROBLEM - General Chief Complaint: Back Pain or Injury Stated Complaint: BACK PAIN Time Seen by Provider: 03/09/19 20:30 Source of Information: Reports: Patient, Old Records History Limitations: Reports: No Limitations - History of Present Illness INITIAL COMMENTS - FREE TEXT/NARRATIVE: Fadumo comes into [facility] ED with some lower back pain that has been aggravated lately. She has a complicated hx of degenerative disc disease, several back surgeries including fusion, and was scheduled for a lower back scan that was cancelled today when back was feeling better. Things changed for her this evening, and she can't get comfortable. Analgesic meds at home are not helping. Treatments ADMITTANCE ATTENDANT: Reports: Acetaminophen, Other Medication(s) Lower back Pain Score (Numeric/FACES): 8 - Related Data Allergies Allergy/AdvReac Type Severity Reaction Status Date / Time Penicillins Allergy Intermediate Headache Verified 03/09/19 20:01 oxycodone [Oxycodone] Allergy Mild Lethargy Verified 03/09/19 20:01 cyclobenzaprine HCl Allergy Ringing in Verified 03/09/19 20:01 [From Flexeril] the Ears Home Meds: Home Meds Escitalopram [Lexapro] 20 mg PO DAILY 03/27/14 [History] Furosemide [Lasix] 40 mg PO BID@,16 03/27/14 [History] Multivitamin [Daily Vitamin] 1 each PO DAILY 03/27/14 [History] Potassium Chloride 10 meq PO DAILY 03/27/14 [History] Allopurinol [Zyloprim] 100 mg PO DAILY 09/20/17 [History] Aspirin [Halfprin] 81 mg PO DAILY 09/20/17 [History] Cyanocobalamin (Vitamin B-12) [B-12] 1,000 mcg PO DAILY 09/20/17 [History] Metoprolol Succinate [Toprol XL] 50 mg PO BID 09/20/17 [History] traZODone 50 mg PO BEDTIME 09/20/17 [History] Bimatoprost [Lumigan 0.01% Ophth Soln] 1 drop EYEBOTH BEDTIME 08/25/18 [History] Losartan [Cozaar] 50 mg PO DAILY 08/25/18 [History] Omeprazole 20 mg PO DAILY PRN 08/25/18 [History] Acetaminophen [Tylenol] 650 mg PO Q6H 11/06/18 [History] Ascorbic Acid 500 mg PO DAILY 11/06/18 [History] Gabapentin [Neurontin] 600 mg PO QID 11/06/18 [History] Sennosides/Docusate Sodium [Senna-S] 1 each PO DAILY PRN 11/06/18 [History] Warfarin [Coumadin] 1 mg PO FR 03/09/19 [History] Warfarin [Coumadin] 2 mg PO SUMOTUWETHSA 03/09/19 [History] traMADol [Ultram] 50 mg PO TID PRN 03/09/19 [History] Past Medical History HEENT History: Reports: Cataract, Glaucoma, Hard of Hearing, Impaired Vision Cardiovascular History: Reports: Blood Clots/VTE/DVT, CAD, Heart Murmur, Hypertension, AL, SOB on Exertion, Stents, Other (See Below) Other Cardiovascular History: edema, hypokalemia. 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: Fibroids, Musculoskeletal History: Reports: Arthritis, Back Pain, Chronic, Fracture, Fibromyalgia, Gout, Osteoarthritis, Osteoporosis, Other (See Below) Other Musculoskeletal History: DJD, hx L fibula, Neurological History: Reports: Neuropathy, Peripheral Psychiatric History: Reports: Anxiety, Depression, Panic Attack 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 Endocrine/Metabolic History: Reports: None, Obesity/BMI 30+ Hematologic History: Reports: Anemia, Anticoagulation Therapy, Blood Transfusion (s) Immunologic History: Reports: None Oncologic (Cancer) History: Reports: None Dermatologic History: Reports: Eczema - Infectious Disease History Infectious Disease History: Reports: Chicken Pox, Hepatitis A, Measles, Mumps - Past Surgical History Head Surgeries/Procedures: Reports: None HEENT Surgical History: Reports: None, Cataract Surgery, Laser Surgery, Tonsillectomy Cardiovascular Surgical History: Reports: None, Carotid Stents Respiratory Surgical History: Reports: None GI Surgical History: Reports: Appendectomy, Cholecystectomy, Colonoscopy, Other (See Below) Other GI Surgeries/Procedures: liver bx Female Surgical History: Reports: Hysterectomy Endocrine Surgical History: Reports: None Neurological Surgical History: Reports: Other (See Below) Other Neurological Surgeries/Procedures: 7 BACK SURGERIES Musculoskeletal Surgical History: Reports: Arthroscopic Knee, Arthroscopic Procedure, Joint Replacement, Knee Replacement, Shoulder Replacement, Shoulder Surgery, Other (See Below) Other Musculoskeletal Surgeries/Procedures:: 5 TKR in left and 2TKR in right, back surgery, foot surgery, L shoulder replacement, Oncologic Surgical History: Reports: None Dermatological Surgical History: Reports: None Social & Family History - Family History Family Medical History: Noncontributory HEENT: Reports: Hearing Impairment Musculoskeletal: Reports: Arthritis, Back pain, Chronic, Fibromyalgia, Osteoarthritis, Osteoporosis Endocrine/Metabolic: Reports: Diabetes, type II Oncologic: Reports: Breast Other Oncologic Family History: Her mother had 4 out 6 girls with breast cancer. - Tobacco Use Smoking Status *Q: Never Smoker - Caffeine Use Caffeine Use: Reports: Coffee - Recreational Drug Use Recreational Drug Use: No ED ROS GENERAL - Review of Systems Review Of Systems: ROS reveals no pertinent complaints other than HPI. ED EXAM,LOWER BACK PAIN/INJURY - Physical Exam Exam: See Below Exam Limited By: No Limitations General Appearance: Alert, WD/WN, Anxious, Moderate Distress, Obese Head: Normocephalic Neck: Normal Inspection, Supple Respiratory/Chest: Lungs Clear Cardiovascular: Regular Rate, Rhythm GI/Abdominal: Soft, Non-Tender, No Organomegaly, No Distention, No Mass (Female) Exam: Deferred Rectal (Female) Exam: Deferred Back Exam: Vertebral Tenderness (L3-S1, ecchymoses evident at sites of previous SI joint injections.) Extremities: Normal Inspection, Normal Range of Motion, Non-Tender, No Pedal Edema Neurological: Alert, CN II-XII Intact, No Motor/Sensory Deficits, Oriented x 3 Psychiatric: Normal Affect, Anxious Skin Exam: Warm, Dry, Intact, Ecchymosis Lymphatic: No Adenopathy Course - Vital Signs Text/Narrative:: Following assessment, I administered Fentanyl 100 mcg IM for pain relief. Patient did eventually leave the ED with a neighbor improved. Last Recorded V/S: Last Vital Signs Temp 36.4 C 03/09/19 19:55 Pulse 63 03/09/19 19:55 Resp 20 03/09/19 19:55 BP 152/73 H 03/09/19 19:55 Pulse Ox 96 03/09/19 19:55 - Orders/Labs/Meds Meds: Medications Discontinued Medications Generic Name Dose Route Start Last Admin Trade Name Gonzalez PRN Reason Stop Dose Admin Fentanyl 100 mcg 03/09/19 20:50 03/09/19 20:57 Sublimaze IM 03/09/19 20:51 100 mcg ONETIME ONE Administration Departure - Departure Time of Disposition: 21:19 Disposition: Home, Self-Care 01 Condition: Fair Clinical Impression: Chronic lower back pain Qualifiers: Back pain laterality: midline Sciatica presence: without sciatica Qualified Code(s): M54.5 - Low back pain; G89.29 - Other chronic pain - Discharge Information *PRESCRIPTION DRUG MONITORING PROGRAM REVIEWED*: Not Applicable *COPY OF PRESCRIPTION DRUG MONITORING REPORT IN PATIENT XIOMARA: Not Applicable Referrals: John Buchanan MD [Primary Care Provider] - - Problem List & Annotations (1) Chronic lower back pain SNOMED Code(s): 840809275 Code(s): M54.5 - LOW BACK PAIN; G89.29 - OTHER CHRONIC PAIN Status: Acute Current Visit: Yes Annotation/Comment:: Follow up with PCP tomorrow regarding further diagnostic imaging as earlier recommended.
[2019-03-09 22:20] VITALS: BP 148/65
== END 2019-03-09 21:38 | disposition home or self-care (01) ==
LOC: FB.ED 19:55
DX: G89.29 Other chronic pain (principal); M54.5 Low back pain; I25.2 Old myocardial infarction; I12.9 Hypertensive chronic kidney disease with stage 1 through stage 4 chronic kidney disease, or unspecified chronic kidney disease; N18.3 Chronic kidney disease, stage 3 (moderate); Z88.5 Allergy status to narcotic agent; Z88.0 Allergy status to penicillin; Z88.8 Allergy status to other drugs, medicaments and biological substances; Z79.899 Other long term (current) drug therapy; Z79.82 Long term (current) use of aspirin
CPT/HCPCS: 96372; 99283; J3010

== ENCOUNTER 2019-10-11 13:54 | Emergency (ER) | payer MEDICARE ==
--- NOTE | 2019-10-11 14:07 | EDM.PDOC ---
ED HPI GENERAL MEDICAL PROBLEM - General Stated Complaint: R SHOULDER PAIN Time Seen by Provider: 10/11/19 14:05 Source of Information: Reports: Patient History Limitations: Reports: No Limitations - History of Present Illness INITIAL COMMENTS - FREE TEXT/NARRATIVE: 83-year-old female who reports that she was getting ready for [employer] one week ago on 10/04/2019 and she was going to sit down in her chair to put her shoes on and she lost her balance and fell forward hitting her head on the carpeted floor. She thinks she may have had a brief loss of consciousness. There was no weakness or dizziness prior to this occurring. She did scrape her forehead and she had a headache and some neck pain following this but she did not seek any medical attention. She also had some right shoulder pain and right toe pain. The headache and the neck pain of essentially gone. She still has some pain into of her right toes but is tape toes together and they are improving as well. She continues to have right shoulder pain. Shoulder pain is rated as a 6/ 10 at rest. It is a throbbing and aching pain and it becomes a sharp and shooting pain when she tries to move her right upper and particularly when she tries to raise her right arm above her shoulder and then the pain becomes a 10/ 10. No nausea or vomiting. No vision problems. No chest pain or shortness of breath. She is chronically anticoagulated with Coumadin and reports her INR was 2.7 on Saturday of last week. She has normal sensation in her right hand and normal function in her right hand. There is also some back pain but she has a history of chronic back pain and this is unchanged. There are no other associated signs or symptoms. There are no other modifying factors. Onset: Other (One week ago) Duration: Constant (Right shoulder pain has remained constant and may be even somewhat worsening) Location: Reports: Upper Extremity, Right (Right shoulder) Quality: Reports: Ache, Sharp, Throbbing Severity: Moderate (to severe) Improves with: Reports: Immobilization, Rest Worsens with: Reports: Other (Palpation), Movement Context: Reports: Trauma Associated Symptoms: Reports: No Other Symptoms (Except as above) Treatments MINING SPECULATOR: Reports: Acetaminophen, Other Medication(s) (Neurontin and tramadol) Right Upper Arm Pain Score (Numeric/FACES): 7 - Related Data Allergies Allergy/AdvReac Type Severity Reaction Status Date / Time Penicillins Allergy Intermediate Headache Verified 10/11/19 14:48 oxycodone [Oxycodone] Allergy Mild Lethargy Verified 10/11/19 14:48 cyclobenzaprine HCl Allergy Ringing in Verified 10/11/19 14:48 [From Flexeril] the Ears Home Meds: Home Meds Escitalopram [Lexapro] 20 mg PO DAILY 03/27/14 [History] Furosemide [Lasix] 40 mg PO BID@08,16 03/27/14 [History] Multivitamin [Daily Vitamin] 1 each PO DAILY 03/27/14 [History] Potassium Chloride 10 meq PO DAILY 03/27/14 [History] Allopurinol [Zyloprim] 100 mg PO DAILY 09/20/17 [History] Aspirin [Halfprin] 81 mg PO DAILY 09/20/17 [History] Cyanocobalamin (Vitamin B-12) [B-12] 1,000 mcg PO DAILY 09/20/17 [History] Metoprolol Succinate [Toprol XL] 50 mg PO BID 09/20/17 [History] traZODone 50 mg PO BEDTIME 09/20/17 [History] Bimatoprost [Lumigan 0.01% Ophth Soln] 1 drop EYEBOTH BEDTIME 08/25/18 [History] Losartan [Cozaar] 50 mg PO DAILY 08/25/18 [History] Omeprazole 20 mg PO DAILY PRN 08/25/18 [History] Acetaminophen [Tylenol] 650 mg PO Q6H 11/06/18 [History] Ascorbic Acid 500 mg PO DAILY 11/06/18 [History] Gabapentin [Neurontin] 600 mg PO QID 11/06/18 [History] Sennosides/Docusate Sodium [Senna-S] 1 each PO DAILY PRN 11/06/18 [History] Warfarin [Coumadin] 1 mg PO FR 03/09/19 [History] Warfarin [Coumadin] 2 mg PO SUMOTUWETHSA 03/09/19 [History] traMADol [Ultram] 50 mg PO TID PRN 03/09/19 [History] Past Medical History HEENT History: Reports: Cataract, Glaucoma, Hard of Hearing, Impaired Vision Cardiovascular History: Reports: Blood Clots/VTE/DVT, CAD, Heart Murmur, Hypertension, ND, SOB on Exertion, Stents, Other (See Below) Other Cardiovascular History: DURING BACK SURGERY 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 IN AORTA Respiratory History: Reports: Intubation, Previous, PE Gastrointestinal History: Reports: Hepatitis Genitourinary History: Reports: Chronic Renal Insuffiency (States 3), Renal Disease, Urinary Incontinence 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 HAND History: Reports: Fibroids Musculoskeletal History: Reports: Arthritis, Back Pain, Chronic, Fracture, Fibromyalgia, Gout, Osteoarthritis, Osteoporosis, Other (See Below) Other Musculoskeletal History: DJD, hx L fibula, Neurological History: Reports: Neuropathy, Peripheral Psychiatric History: Reports: Anxiety, Depression, Panic Attack 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 Endocrine/Metabolic History: Reports: Obesity/BMI 30+ Hematologic History: Reports: Anemia, Anticoagulation Therapy (On Coumadin), Blood Transfusion(s) Dermatologic History: Reports: Eczema - Infectious Disease History Infectious Disease History: Reports: Chicken Pox, Hepatitis A, Measles, Mumps - Past Surgical History HEENT Surgical History: Reports: Cataract Surgery, Laser Surgery, Tonsillectomy Cardiovascular Surgical History: Reports: Carotid Stents, Vascular Surgery ( Stent placed in aorta secondary to iatrogenic injury to aorta during back surgery) GI Surgical History: Reports: Appendectomy, Cholecystectomy, Colonoscopy, Other (See Below) Other GI Surgeries/Procedures: liver bx Female Surgical History: Reports: Hysterectomy Neurological Surgical History: Reports: Other (See Below) Other Neurological Surgeries/Procedures: 7 BACK SURGERIES Musculoskeletal Surgical History: Reports: Arthroscopic Knee, Arthroscopic Procedure, Joint Replacement, Knee Replacement, Shoulder Replacement, Shoulder Surgery, Other (See Below) Other Musculoskeletal Surgeries/Procedures:: 5 TKR in left and 2TKR in right, back surgery, foot surgery, L shoulder replacement, Social & Family History - Family History HEENT: Reports: Hearing Impairment Musculoskeletal: Reports: Arthritis, Back pain, Chronic, Fibromyalgia, Osteoarthritis, Osteoporosis Endocrine/Metabolic: Reports: Diabetes, type II Oncologic: Reports: Breast Other Oncologic Family History: Her mother had 4 out 6 girls with breast cancer. - Tobacco Use Smoking Status *Q: Never Smoker - Caffeine Use Caffeine Use: Reports: Coffee - Alcohol Use Alcohol Use History: No - Living Situation & Occupation Occupation: Retired Social History Comment: Lives alone in her own apartment. She is here with her granddaughter. ED THIEN GENERAL - Review of Systems Review Of Systems: See Below Constitutional: Reports: No Symptoms HEENT: Reports: No Symptoms Respiratory: Reports: No Symptoms Cardiovascular: Reports: No Symptoms Endocrine: Reports: No Symptoms GI/Abdominal: Reports: No Symptoms : Reports: No Symptoms Musculoskeletal: Reports: Shoulder Pain (Right) Skin: Reports: No Symptoms Neurological: Reports: No Symptoms Hematologic/Lymphatic: Reports: Easy Bleeding, Easy Bruising, Other ( Chronically anticoagulated on Coumadin) Immunologic: Reports: No Symptoms ED EXAM, GENERAL - Physical Exam Exam: See Below Exam Limited By: No Limitations General Appearance: Alert, WD/WN, Moderate Distress, Other (Nontoxic appearing) Eye Exam: Bilateral Eye: EOMI, Normal Inspection Ears: Normal External Exam, Hearing Grossly Normal Ear Exam: Bilateral Ear: Auricle Normal Nose: Normal Inspection, Normal Mucosa, No Blood Throat/Mouth: Normal Inspection, Normal Oropharynx, Normal Voice, No Airway Compromise Head: Normocephalic, Other (See no evidence of acute trauma) Neck: Normal Inspection, Supple, Non-Tender, Full Range of Motion Respiratory/Chest: No Respiratory Distress, Lungs Clear, Normal Breath Sounds, No Accessory Muscle Use, Chest Non-Tender Cardiovascular: Normal Peripheral Pulses, Regular Rate, Rhythm, No Murmur Peripheral Pulses: 2+: Radial (L), Radial (R) GI/Abdominal: Normal Bowel Sounds, Soft, Non-Tender, No Mass Back Exam: Normal Inspection Extremities: Normal Capillary Refill, Pedal Edema (Chronic), Limited Range of Motion, Other (Tender over right glenohumeral joint area. No crepitus. She also has ecchymosis and swelling over the second and third toes and the dorsum of her foot. There are no open wounds. There is no cellulitis.) Neurological: Alert, Oriented, CN II-XII Intact, Normal Cognition, No Motor/ Sensory Deficits Psychiatric: Normal Affect Skin Exam: Warm, Dry, Intact, Normal Color, No Rash Course - Vital Signs Last Recorded V/S: Last Vital Signs Temp 36.6 C 10/11/19 14:00 Pulse 68 10/11/19 14:00 Resp 18 10/11/19 14:00 BP 148/66 H 10/11/19 14:00 Pulse Ox 96 10/11/19 14:00 - Orders/Labs/Meds Orders: Active Orders 24 hr Category Date Time Status Head wo Cont [CT] Stat Exams 10/11/19 14:18 Taken Shoulder Comp Rt [CR] Stat Exams 10/11/19 14:18 Taken Labs: Laboratory Tests 10/11/19 Range/Units 14:42 PT 17.8 H (8.7-11.1) INR 1.85 H (0.89-1.13) - Radiology Interpretation Free Text/Narrative:: CT scan of head showed no acute intracranial abnormality per the radiologist. Right shoulder x-ray shows no definite evidence of fracture. She has had a right shoulder replacement and the prosthesis appears to be in appropriate addition. She has fairly significant osteoarthropathy. - Re-Assessments/Exams Free Text/Narrative Re-Assessment/Exam: 10/11/19 16:08: The patient remains awake and alert and neurologically stable. The CT scan of her head was normal. The x-ray of her right shoulder did not show any definite fracture on my read (this is pending radiology over read) and the component of her shoulder replacement appeared to be aligned appropriately. She could still have a fracture in this proximal humerus that is nondisplaced and is periprosthetic. She could also have an injury to her rotator cuff. She will need to follow-up with the orthopedic surgeon at [facility] in [place], Dr. Shetty, this coming week. We did place her in a right upper extremity sling. This is for comfort and support. I have told her to do low-impact range of motion with her shoulder as she did following her shoulder replacement beginning tomorrow. She should take Tylenol and the tramadol that she hasn't home for pain as needed. Departure - Departure Time of Disposition: 16:20 Disposition: Home, Self-Care 01 Condition: Good (Stable) Clinical Impression: Head contusion Qualifiers: Encounter type: initial encounter Contusion of head detail: other part of head Qualified Code(s): S00.83XA - Contusion of other part of head, initial encounter Fall from standing Qualifiers: Encounter type: initial encounter Qualified Code(s): W19.XXXA - Unspecified fall, initial encounter Contusion, toes Qualifiers: Encounter type: initial encounter Toe: unspecified toe Damage to nail status: without damage Qualified Code(s): S90.129A - Contusion of unspecified lesser toe (s) without damage to nail, initial encounter Right shoulder injury Qualifiers: Encounter type: initial encounter Qualified Code(s): S49.91XA - Unspecified injury of right shoulder and upper arm, initial encounter - Discharge Information Instructions: Contusion, [id number], Shoulder Pain, [id number], Facial or Scalp Contusion, [id number], Toe Fracture, [id number] Referrals: Olive Browning, [employer] [Primary Care Provider] - Additional Instructions: Your INR was 1.85. You will need to have this rechecked this coming week. The CT scan of your head showed no fracture or bleeding. The x-ray of your right shoulder showed no definite fracture. As we discussed, there could still be a nondisplaced fracture that I did not see on x-ray or you could have an injury to your rotator cuff. Use the sling for comfort and support and tomorrow begin doing the exercises that you did with your right shoulder following your shoulder replacement. Follow-up with your orthopedic surgeon at [facility] this week. Take Tylenol and the tramadol that you have at home for your pain. Back to the emergency department for signs of infection, trouble breathing , vomiting or any other concerning sign or symptom. - My Orders Last 24 Hours: My Active Orders 10/11/19 14:18 Head wo Cont [CT] Stat Shoulder Comp Rt [CR] Stat - Assessment/Plan Last 24 Hours: My Active Orders 10/11/19 14:18 Head wo Cont [CT] Stat Shoulder Comp Rt [CR] Stat
[2019-10-11 14:33] VITALS: BP 148/66; PULSE 68
--- NOTE | 2019-10-12 11:37 | CR ---
INDICATION: Fall with right shoulder pain. RIGHT SHOULDER: Three views of the right shoulder, 10/11/19, were compared with 08/26/18 and again revealed a complete shoulder arthroplasty, which remains in good position and alignment, without a definite acute fracture or dislocation. There does appear to be some progressive impingement on the acromion and distal clavicle to a mild degree. The adjacent lung and ribs were negative for an acute process. IMPRESSION: No definite acute abnormality. If an acute fracture is suspected clinically or loosening of the prosthesis is suspected clinically, 3-phase nuclear bone imaging may be helpful for further evaluation. MTDD
== END 2019-10-11 16:30 | disposition home or self-care (01) ==
LOC: FB.ED 13:54
DX: S00.83XA Contusion of other part of head, initial encounter (principal); S90.121A Contusion of right lesser toe(s) without damage to nail, initial encounter; S49.91XA Unspecified injury of right shoulder and upper arm, initial encounter; I25.10 Atherosclerotic heart disease of native coronary artery without angina pectoris; Z86.718 Personal history of other venous thrombosis and embolism; I25.2 Old myocardial infarction; I12.9 Hypertensive chronic kidney disease with stage 1 through stage 4 chronic kidney disease, or unspecified chronic kidney disease; N18.3 Chronic kidney disease, stage 3 (moderate); M19.90 Unspecified osteoarthritis, unspecified site; F41.0 Panic disorder [episodic paroxysmal anxiety]; F32.9 Major depressive disorder, single episode, unspecified; Z79.01 Long term (current) use of anticoagulants; E66.9 Obesity, unspecified; Z68.34 Body mass index [BMI] 34.0-34.9, adult; Z88.0 Allergy status to penicillin; Z88.5 Allergy status to narcotic agent; Z88.8 Allergy status to other drugs, medicaments and biological substances; Z79.82 Long term (current) use of aspirin; Z79.899 Other long term (current) drug therapy; W07.XXXA Fall from chair, initial encounter
CPT/HCPCS: 36415; 70450; 73030-RT; 85610; 99283; 99284-25

== ENCOUNTER 2021-04-24 14:06 | Emergency (ER) | payer MEDICARE ==
[2021-04-24] MEDS ORDERED: Sodium Chloride 0.9% 10 ML Syringe FLUSH PRN (14:32)
[2021-04-24 14:36] VITALS: BP 150/60; PULSE 68
--- NOTE | 2021-04-24 14:36 | EDM.PDOC ---
ED HPI GENERAL MEDICAL PROBLEM - General Stated Complaint: FALL Time Seen by Provider: 04/24/21 14:14 Source of Information: Reports: Patient History Limitations: Reports: No Limitations - History of Present Illness INITIAL COMMENTS - FREE TEXT/NARRATIVE: 85-year-old female who reports that she had just from physical therapy which is swimming in a pool at approximately 1:30 PM and to take a shower to wash the chlorine off and she was stepping into the shower and she grabbed one of her grab bars which is a suction grab bar and it gave way and she fell backwards striking her head against the wall. She reports that she was dazed after this and had a headache she also reports that she has had some posterior neck pain and stiffness following this as well. 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 In addition she states that she has been feeling "off" for about the past week with some feelings of weakness and lightheadedness at times and apparently a week ago she fell after physical therapy but did not hit her head. She states that she landed on her knees and her right shoulder. She has had some mild nausea but no vomiting. She currently rates her headache which is global and achy as a 4/10. Her neck pain is stiff and sore and it is less than oh 4/10. It is worse with palpation and with movement. He has some tenderness to palpation over her occiput as well. She also apparently has some left lower, lateral rib pain that she thinks occurred during this fall as well. Presents to the emergency department via ambulance. She is awake and alert and able to give a good history. She appears in no respiratory distress. She states that recently she had her potassium replacement decreased but she is still taking Lasix at her. There are no other associated signs or symptoms. There are no other modifying factors. Onset: Today (1:30 PM) Duration: Constant Location: Reports: Head, Neck, Chest Quality: Reports: Ache, Other (Sore) Severity: Moderate Improves with: Reports: Rest Worsens with: Reports: Breathing, Other (Palpation), Movement Context: Reports: Trauma Associated Symptoms: Reports: Chest Pain (As above.), Nausea/Vomiting, Weakness, Other (Lightheadedness.) Treatments HAND COLLATOR: Reports: Other (see below) (Nothing.) Headache Pain Score (Numeric/FACES): 3 - Related Data Allergies Allergy/AdvReac Type Severity Reaction Status Date / Time Penicillins Allergy Intermediate Headache Verified 10/11/19 14:48 oxycodone [Oxycodone] Allergy Mild Lethargy Verified 10/11/19 14:48 cyclobenzaprine HCl Allergy Ringing in Verified 10/11/19 14:48 [From Flexeril] the Ears Home Meds: Home Meds Escitalopram [Lexapro] 20 mg PO DAILY 03/27/14 [History] Furosemide [Lasix] 40 mg PO BID@08,16 03/27/14 [History] Multivitamin [Daily Vitamin] 1 each PO DAILY 03/27/14 [History] Potassium Chloride 10 meq PO DAILY 03/27/14 [History] Allopurinol [Zyloprim] 100 mg PO DAILY 09/20/17 [History] Aspirin [Halfprin] 81 mg PO DAILY 09/20/17 [History] Cyanocobalamin (Vitamin B-12) [B-12] 1,000 mcg PO DAILY 09/20/17 [History] Metoprolol Succinate [Toprol XL] 50 mg PO BID 09/20/17 [History] traZODone 50 mg PO BEDTIME 09/20/17 [History] Bimatoprost [Lumigan 0.01% Ophth Soln] 1 drop EYEBOTH BEDTIME 08/25/18 [History] Losartan [Cozaar] 50 mg PO DAILY 08/25/18 [History] Omeprazole 20 mg PO DAILY PRN 08/25/18 [History] Acetaminophen [Tylenol] 650 mg PO Q6H 11/06/18 [History] Ascorbic Acid 500 mg PO DAILY 11/06/18 [History] Gabapentin [Neurontin] 600 mg PO QID 11/06/18 [History] Sennosides/Docusate Sodium [Senna-S] 1 each PO DAILY PRN 11/06/18 [History] Warfarin [Coumadin] 1 mg PO FR 03/09/19 [History] Warfarin [Coumadin] 2 mg PO SUMOTUWETHSA 03/09/19 [History] traMADol [Ultram] 50 mg PO TID PRN 03/09/19 [History] Past Medical History HEENT History: Reports: Cataract, Glaucoma, Hard of Hearing, Impaired Vision Cardiovascular History: Reports: Blood Clots/VTE/DVT, CAD, Heart Murmur, Hyperte nsion, SC, SOB on Exertion, Stents, Other (See Below) Other Cardiovascular History: DURING BACK SURGERY 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 IN AORTA Respiratory History: Reports: Intubation, Previous, PE Gastrointestinal History: Reports: Hepatitis Genitourinary History: Reports: Chronic Renal Insuffiency (States 3), Renal Disease, Urinary Incontinence Other Genitourinary History: stage 3 kidney disease 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: Fibroids Musculoskeletal History: Reports: Arthritis, Back Pain, Chronic, Fracture, Fibromyalgia, Gout, Osteoarthritis, Osteoporosis, Other (See Below) Other Musculoskeletal History: DJD, hx L fibula, Neurological History: Reports: Neuropathy, Peripheral Psychiatric History: Reports: Anxiety, Depression, Panic Attack 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 Endocrine/Metabolic History: Reports: Obesity/BMI 30+ Hematologic History: Reports: Anemia, Anticoagulation Therapy (On Coumadin), Blood Transfusion(s) Dermatologic History: Reports: Eczema - Infectious Disease History Infectious Disease History: Reports: Chicken Pox, Hepatitis A, Measles, Mumps - Past Surgical History HEENT Surgical History: Reports: Cataract Surgery, Laser Surgery, Tonsillectomy Cardiovascular Surgical History: Reports: Carotid Stents, Vascular Surgery (Stent placed in aorta secondary to iatrogenic injury to aorta during back surgery), Other (See Below) (Thoracic aortic stent) GI Surgical History: Reports: Appendectomy, Cholecystectomy, Colonoscopy, Other (See Below) Other GI Surgeries/Procedures: liver bx Female Surgical History: Reports: Hysterectomy Neurological Surgical History: Reports: Other (See Below) Other Neurological Surgeries/Procedures: 7 BACK SURGERIES Musculoskeletal Surgical History: Reports: Arthroscopic Knee, Arthroscopic Procedure, Joint Replacement, Knee Replacement, Shoulder Replacement, Shoulder Surgery, Other (See Below) Other Musculoskeletal Surgeries/Procedures:: 5 TKR in left and 2TKR in right, back surgery, foot surgery, L shoulder replacement, Social & Family History - Family History HEENT: Reports: Hearing Impairment Musculoskeletal: Reports: Arthritis, Back pain, Chronic, Fibromyalgia, Osteoarthritis, Osteoporosis Endocrine/Metabolic: Reports: Diabetes, type II Oncologic: Reports: Breast Other Oncologic Family History: Her mother had 4 out 6 girls with breast cancer. - Tobacco Use Tobacco Use Status *Q: Unknown Ever Used Tobacco (Nonsmoker.) - Caffeine Use Caffeine Use: Reports: Coffee Other Caffeine Use: daily - Alcohol Use Alcohol Use History: No - Living Situation & Occupation Living situation: Reports: Occupation: Retired ED ROS GENERAL - Review of Systems Review Of Systems: See Below Constitutional: Reports: Weakness, Fatigue HEENT: Reports: No Symptoms Respiratory: Reports: No Symptoms Cardiovascular: Reports: Chest Pain (Left lateral rib pain.), Lightheadedness Endocrine: Reports: Fatigue GI/Abdominal: Reports: Nausea : Reports: Frequency Musculoskeletal: Reports: Neck Pain Skin: Reports: No Symptoms Neurological: Reports: Headache Psychiatric: Reports: No Symptoms Hematologic/Lymphatic: Reports: Easy Bleeding (Chronically anticoagulated on Coumadin.) Immunologic: Reports: No Symptoms ED EXAM, GENERAL - Physical Exam Exam: See Below Exam Limited By: No Limitations General Appearance: Alert, Moderate Distress, Obese, Other (She is fluent and appropriate in her conversation. No respiratory distress.) Eye Exam: Bilateral Eye: EOMI, Other (Chronic changes bilaterally.) Ears: Normal External Exam, Hearing Grossly Normal Ear Exam: Bilateral Ear: Auricle Normal Nose: Normal Inspection, Normal Mucosa, No Blood Throat/Mouth: Normal Inspection, Normal Lips, Normal Voice, No Airway Compromise Head: Normocephalic, Other (Tenderness and swelling in her occiput.) Neck: Tender Midline Respiratory/Chest: No Respiratory Distress, Lungs Clear, Normal Breath Sounds, No Accessory Muscle Use, Other (Tender over left lateral rib area.) Cardiovascular: Normal Peripheral Pulses, Regular Rate, Rhythm, Systolic Murmur (1-2/6.) Peripheral Pulses: 2+: Radial (L), Radial (R), Dorsalis Pedis (L), Dorsalis Pedis (R) (Warm feet bilaterally) GI/Abdominal: Normal Bowel Sounds, Soft, Non-Tender, No Mass Back Exam: Normal Inspection Extremities: Normal Range of Motion, Normal Capillary Refill, Pedal Edema Neurological: Alert, Oriented, CN II-XII Intact, Normal Cognition, No Motor/Sensory Deficits Psychiatric: Normal Affect Skin Exam: Warm, Dry, Intact, No Rash, Ecchymosis (Knees bilaterally) #1 Interpretation EKG Date: 04/24/21 Time: 14:56 Rhythm: NSR Rate (Beats/Min): 72 [place]: Normal P-Wave: Present QRS: Normal ST-T: Normal QT: Prolonged (Slightly prolonged QTc.) Comparison: No Change (No change from an EKG performed on 04/24/2018.) Course - Vital Signs Last Recorded V/S: Last Vital Signs Temp 36.6 C 04/24/21 14:06 Pulse 68 04/24/21 14:06 Resp 20 04/24/21 14:06 BP 150/60 H 04/24/21 14:06 Pulse Ox 96 04/24/21 14:06 - Orders/Labs/Meds Orders: Active Orders 24 hr Category Date Time Status Peripheral IV Insertion Adult [OM.PC] Routine Oth 04/24/21 14:32 Ordered EKG 12 Lead [EK] Routine Ther 04/24/21 14:32 Ordered Labs: Laboratory Tests 04/24/21 04/24/21 04/24/21 Range/Units 14:45 14:45 14:45 WBC 5.6 (3.0-10.3) x10-3/uL RBC 3.44 L (3.60-5.20) x10(6)uL Hgb 11.3 L (11.4-15.5) g/dL Hct 34.1 L (34.2-48.2) % MCV 99.1 (76.7-100.5) fL MCH 32.9 (23.9-33.9) pg MCHC 33.2 (31.9-34.8) g/dL RDW 15.3 (12.3-16.5) % Plt Count 158 (151-488) x10(3)uL MPV 8.4 (7.1-12.4) fL Neut % (Auto) 71.7 (30.8-76.2) % Lymph % (Auto) 15.9 L (18.4-52.1) % [place] % (Auto) 6.7 (4.4-15.7) % Eos % (Auto) 4.8 (0.6-8.1) % Baso % (Auto) 0.9 (0.2-1.5) % Neut # (Auto) 4.0 (1.5-6.3) x10-3/uL Lymph # (Auto) 0.9 L (1.0-4.4) x10-3/uL [place] # (Auto) 0.4 (0.3-1.0) x10-3/uL Eos # (Auto) 0.3 (0.0-0.8) x10-3/uL Baso # (Auto) 0.0 (0.0-0.1) x10-3/uL PT 21.2 H (9.0-11.1) sec INR 2.05 H (1.00-1.24) Sodium 139 (135-145) mmol/L Potassium 4.4 (3.5-5.3) mmol/L Chloride 101 (100-110) mmol/L Carbon Dioxide 31 (21-32) mmol/L BUN 39 H (7-18) mg/dL Creatinine 1.3 H (0.55-1.02) mg/dL Est Cr Clr Drug Dosing 25.70 mL/min Estimated GFR (MDRD) 39 L (>60) BUN/Creatinine Ratio 30.0 H (9-20) Glucose 187 H D (80-116) mg/dL Calcium 8.0 L (8.6-10.2) mg/dL Magnesium 2.3 (1.8-2.5) mg/dL Total Bilirubin 0.3 (0.1-1.3) mg/dL AST 25 D (5-25) IU/L ALT 27 (12-36) U/L Alkaline Phosphatase 98 (56-112) IU/L Troponin I (4.0-60.3) pg/mL Total Protein 6.6 (6.0-8.0) g/dL Albumin 3.4 (3.2-4.6) g/dL Globulin 3.2 g/dL Albumin/Globulin Ratio 1.1 Urine Color (YELLOW) Urine Appearance (CLEAR) Urine pH (5.0-6.5) Ur Specific [place] (1.010-1.025) Urine Protein (NEGATIVE) mg/dL Urine Glucose (UA) (NORMAL) mg/dL Urine Ketones (NEGATIVE) mg/dL Urine Occult Blood (NEGATIVE) Urine Nitrite (NEGATIVE) Urine Bilirubin (NEGATIVE) Urine Urobilinogen (NEGATIVE) mg/dL Ur Leukocyte Esterase (NEGATIVE) Urine RBC (0-5) Urine WBC (0-5) Ur Squamous Epith Cells (NS,R,O) Urine Bacteria (NS) 04/24/21 04/24/21 Range/Units 14:45 15:15 WBC (3.0-10.3) x10-3/uL RBC (3.60-5.20) x10(6)uL Hgb (11.4-15.5) g/dL Hct (34.2-48.2) % MCV (76.7-100.5) fL MCH (23.9-33.9) pg MCHC (31.9-34.8) g/dL RDW (12.3-16.5) % Plt Count (151-488) x10(3)uL MPV (7.1-12.4) fL Neut % (Auto) (30.8-76.2) % Lymph % (Auto) (18.4-52.1) % [place] % (Auto) (4.4-15.7) % Eos % (Auto) (0.6-8.1) % Baso % (Auto) (0.2-1.5) % Neut # (Auto) (1.5-6.3) x10-3/uL Lymph # (Auto) (1.0-4.4) x10-3/uL [place] # (Auto) (0.3-1.0) x10-3/uL Eos # (Auto) (0.0-0.8) x10-3/uL Baso # (Auto) (0.0-0.1) x10-3/uL PT (9.0-11.1) sec INR (1.00-1.24) Sodium (135-145) mmol/L Potassium (3.5-5.3) mmol/L Chloride (100-110) mmol/L Carbon Dioxide (21-32) mmol/L BUN (7-18) mg/dL Creatinine (0.55-1.02) mg/dL Est Cr Clr Drug Dosing mL/min Estimated GFR (MDRD) (>60) BUN/Creatinine Ratio (9-20) Glucose (80-116) mg/dL Calcium (8.6-10.2) mg/dL Magnesium (1.8-2.5) mg/dL Total Bilirubin (0.1-1.3) mg/dL AST (5-25) IU/L ALT (12-36) U/L Alkaline Phosphatase (56-112) IU/L Troponin I 6.1 (4.0-60.3) pg/mL Total Protein (6.0-8.0) g/dL Albumin (3.2-4.6) g/dL Globulin g/dL Albumin/Globulin Ratio Urine Color Yellow (YELLOW) Urine Appearance Clear (CLEAR) Urine pH 7.0 H (5.0-6.5) Ur Specific [place] 1.010 (1.010-1.025) Urine Protein Negative (NEGATIVE) mg/dL Urine Glucose (UA) Normal (NORMAL) mg/dL Urine Ketones Negative (NEGATIVE) mg/dL Urine Occult Blood Negative (NEGATIVE) Urine Nitrite Negative (NEGATIVE) Urine Bilirubin Negative (NEGATIVE) Urine Urobilinogen Normal (NEGATIVE) mg/dL Ur Leukocyte Esterase Negative (NEGATIVE) Urine RBC 0-5 (0-5) Urine WBC 0-5 (0-5) Ur Squamous Epith Cells Few H (NS,R,O) Urine Bacteria Few H (NS) Meds: Medications Discontinued Medications Generic Name Dose Route Start Last Admin Trade Name Freq PRN Reason Stop Dose Admin Sodium Chloride 10 ml 04/24/21 14:32 Sodium Chloride 0.9% 10 Ml Syringe FLUSH ASDIRECTED PRN Keep Vein Open - Radiology Interpretation Free Text/Narrative:: CT of head showed no acute disease per Dr. Bajwa CT scan of cervical spine showed significant DJD and DJD but no acute fracture per Dr. Bajwa. Portable chest x-ray showed no definite fracture and there is no hemo-or pneumothorax. - Re-Assessments/Exams Free Text/Narrative Re-Assessment/Exam: 04/24/21 16:15: Patient's CT scan of her head showed no bleeding or fracture. The CT scan of the neck showed degenerative changes but no fracture. Trace showed no pneumo or hemothorax. There is no evidence of fracture. Her blood tests were reassuringly normal. Her INR was therapeutic at 2.05. Her urinalysis showed no evidence of infection. She appears to have bruises/contusions. She also appears to be stable for discharge at this point. I think that some of her lightheadedness may be related to not drinking enough fluids as she is doing some exercising and not drinking enough liquids. She is awake, alert and appropriate. She is neurologically stable area and her blood pressures have been in the 150-170 systolic range. She actually was able to ambulate to the bathroom with her walker without any problems and we will walk the patient now to ensure that she is able to do such at home. Precautions and reasons for return to the emergency department were discussed with the patient and with her daughter while the patient was in the emergency department for detailed the patient's discharge instructions. The patient feels comfortable with plan for discharge. Departure - Departure Time of Disposition: 16:57 Disposition: Home, Self-Care 01 Condition: Good Clinical Impression: Chronic anticoagulation Fall from slipping on slippery surface Qualifiers: Encounter type: initial encounter Qualified Code(s): W01.0XXA - Fall on same level from slipping, tripping and stumbling without subsequent striking against object, initial encounter Head contusion Qualifiers: Encounter type: initial encounter Contusion of head detail: other part of head Qualified Code(s): S00.83XA - Contusion of other part of head, initial encounter Cervical strain, acute Qualifiers: Encounter type: initial encounter Qualified Code(s): S16.1XXA - Strain of muscle, fascia and tendon at neck level, initial encounter Chest wall contusion Qualifiers: Encounter type: initial encounter Laterality: left Qualified Code(s): S20.212A - Contusion of left front wall of thorax, initial encounter - Discharge Information Instructions: Fall Prevention in the Home, Adult, [id number], Facial or Scalp Contusion, [id number], Head Injury, Adult, [id number] Referrals: Olive Browning NP [Primary Care Provider] - Forms: ED Department Discharge Additional Instructions: Your blood tests were all reassuring. Your INR was 2.05. The CT scan of your head showed no bleeding and no fracture. The CT scan of your neck showed no fracture. You do have quite a bit of arthritis in her neck. The chest x-ray showed no lung collapse or definite fracture. Your urine test was normal as well. I do think that you may have been a little dehydrated. You do need to increase your fluid intake. Follow-up with your primary provider tomorrow morning as you have planned. Back to the emergency department for worse headache, trouble breathing, coughing up blood, urinating blood, severe weakness or any other concerning sign or symptom. Sepsis Event Note (ED) - Evaluation Sepsis Screening Result: No Definite Risk - Focused Exam Vital Signs: Vital Signs Temp Pulse Resp BP Pulse Ox 04/24/21 14:06 36.6 C 68 20 150/60 H 96 - My Orders Last 24 Hours: My Active Orders 04/24/21 14:32 Peripheral IV Insertion Adult [OM.PC] Routine EKG 12 Lead [EK] Routine - Assessment/Plan Last 24 Hours: My Active Orders 04/24/21 14:32 Peripheral IV Insertion Adult [OM.PC] Routine EKG 12 Lead [EK] Routine
--- NOTE | 2021-04-24 16:00 | CT ---
INDICATION: Head injury, on Coumadin - hit back of head. CT HEAD WITHOUT CONTRAST: Spiral 3.75 mm axial sections were obtained through the brain without contrast with axial, sagittal and coronal reconstructions 04/24/21 and compared with 10/11/19. Total exam DLP was 1244.99 mGy-cm. Moderately severe degenerative changes are noted at the odontoatlantian joint. Mastoid air cells were well-aerated. Retention cyst of moderately large size is noted at the base of the left maxillary antrum as previously. Paranasal sinuses were otherwise well aerated. No specific orbital abnormality was identified. No cranial fracture site was seen. No scalp hematoma was noted. Calcifications are noted in the internal carotid arteries. No shift of midline structures was identified. Ventricles are mildly prominent compatible with age and a mild degree of central atrophy. No definite abnormal areas of density were identified - no bleeding site or hematoma was seen. IMPRESSION: 1. No acute intracranial abnormality. 2. Cerebrovascular disease as evidenced by internal carotid artery calcifications. 3. Retention cyst left maxillary antrum appears stable. [facility]
--- NOTE | 2021-04-24 16:15 | CT ---
INDICATION: Head injury with neck pain. CT CERVICAL SPINE: Spiral 2.5 mm axial sections were obtained through the cervical spine with sagittal and coronal reconstructions 04/24/21 - no comparisons. Total exam DLP was 398.28 mGy-cm. Osteoarthritic changes are noted of moderate to moderately severe degree at the odontoatlantian joint with sclerosis, hypertrophic change, and subchondral cystic changes noted. Degenerative changes are also noted at the atlas occipital interfaces. Significant narrowing of the odontoatlantian joint is noted with periarticular calcifications. Narrowing of the C3-4 disk space is noted with hypertrophic degenerative changes at uncinate joints, especially on the right and at the lateral masses, especially on the right. More severe narrowing of the disk space and more prominent hypertrophic changes are noted at the C4-5 disk space with vacuum disk phenomenon noted. Again, hypertrophic changes are noted at the lateral masses and uncinate joints and appear more severe on the right. At the C5-6 level, there is fusion of the vertebral bodies but not the posterior elements. Fusion may be on the basis of degenerative disk disease. Hypertrophic spurring is noted anteriorly and posteriorly at the vertebral body interfaces of C5-6. Fairly severe degenerative disk disease with marked narrowing is also noted with vacuum disk phenomena at C6-7 with hypertrophic spurring, subchondral cystic changes, and vacuum disk phenomenon. Degenerative disk disease is also suggested at the C7-T1 and C2-3 levels with minimal anterolisthesis at T1-2. Narrowing of neural foramina is noted at the most severe degenerative disk disease levels bilaterally and appears most severe at the C6-7 level on the left and slight less prominently on the right at that level. Perispinal calcifications are noted which may be on the basis of previous injuries at the C6-7, T1 levels. Prevertebral space appeared normal. Vertebral body heights were fairly well maintained without a definite acute fracture or dislocation identified. Uncinate joint degenerative changes are present in the mid to lower levels in addition to those mentioned above with somewhat less prominent lateral mass hypertrophic changes at the C6 through C7 level. The lung apices included on this study showed no gross abnormality. IMPRESSION: 1. No definite acute fracture or dislocation. 2. Fairly diffuse degenerative hypertrophic changes and disk disease in the cervical spine with some narrowed neural foramina present. Report was called to Dr. Hernandez at 1509 hours, 04/24/21. [facility]
--- NOTE | 2021-04-24 16:20 | CR ---
INDICATION: Left lateral rib pain status after a fall. CHEST ONE VIEW: A single AP portable upright view of the chest was obtained 04/24/21. The heart did not appear enlarged. The aorta is tortuous with calcification in the arch. A definite active infiltrate, effusion, contusion or pneumothorax was not identified. Shoulder arthroplasties are noted bilaterally. Degenerative changes with hypertrophic lipping are noted off vertebral bodies in the mid to lower thoracic spine. IMPRESSION: No acute process. MTDD
== END 2021-04-24 17:20 | disposition home or self-care (01) ==
LOC: FB.ED 14:06
DX: S16.1XXA Strain of muscle, fascia and tendon at neck level, initial encounter (principal); S00.83XA Contusion of other part of head, initial encounter; S20.212A Contusion of left front wall of thorax, initial encounter; I25.10 Atherosclerotic heart disease of native coronary artery without angina pectoris; I25.2 Old myocardial infarction; I12.9 Hypertensive chronic kidney disease with stage 1 through stage 4 chronic kidney disease, or unspecified chronic kidney disease; N18.30 Chronic kidney disease, stage 3 unspecified; E66.9 Obesity, unspecified; Z68.30 Body mass index [BMI] 30.0-30.9, adult; W01.0XXA Fall on same level from slipping, tripping and stumbling without subsequent striking against object, initial encounter
CPT/HCPCS: 36415; 70450; 71045; 72125; 80053; 81001; 83735; 84484; 85025; 85610; 93005; 99285-25

== ENCOUNTER 2021-06-05 19:43 | Emergency (ER) | payer MEDICARE ==
[2021-06-05] MEDS ORDERED: Ciprofloxacin 500 MG Tab PO ONE (19:44)
--- NOTE | 2021-06-05 20:42 | EDM.PDOC ---
ED HPI GENERAL MEDICAL PROBLEM - General Chief Complaint: Genitourinary Problem Stated Complaint: UTI Time Seen by Provider: 06/05/21 20:40 Source of Information: Reports: Patient History Limitations: Reports: No Limitations - History of Present Illness INITIAL COMMENTS - FREE TEXT/NARRATIVE: Hematuria x 12 hrs,associated with frequency and urgency of urination. Also complains of chronic diarrhea,chronic back pain,but no systemic symptoms. - Related Data Allergies Allergy/AdvReac Type Severity Reaction Status Date / Time Penicillins Allergy Intermediate Headache Verified 10/11/19 14:48 oxycodone [Oxycodone] Allergy Mild Lethargy Verified 10/11/19 14:48 cyclobenzaprine HCl Allergy Ringing in Verified 10/11/19 14:48 [From Flexeril] the Ears Home Meds: Home Meds Escitalopram [Lexapro] 20 mg PO DAILY 03/27/14 [History] Furosemide [Lasix] 40 mg PO BID@08,16 03/27/14 [History] Multivitamin [Daily Vitamin] 1 each PO DAILY 03/27/14 [History] Potassium Chloride 10 meq PO DAILY 03/27/14 [History] Allopurinol [Zyloprim] 100 mg PO DAILY 09/20/17 [History] Aspirin [Halfprin] 81 mg PO DAILY 09/20/17 [History] Cyanocobalamin (Vitamin B-12) [B-12] 1,000 mcg PO DAILY 09/20/17 [History] Metoprolol Succinate [Toprol XL] 50 mg PO BID 09/20/17 [History] traZODone 50 mg PO BEDTIME 09/20/17 [History] Bimatoprost [Lumigan 0.01% Ophth Soln] 1 drop EYEBOTH BEDTIME 08/25/18 [History] Losartan [Cozaar] 50 mg PO DAILY 08/25/18 [History] Omeprazole 20 mg PO DAILY PRN 08/25/18 [History] Acetaminophen [Tylenol] 650 mg PO Q6H 11/06/18 [History] Ascorbic Acid 500 mg PO DAILY 11/06/18 [History] Gabapentin [Neurontin] 600 mg PO QID 11/06/18 [History] Sennosides/Docusate Sodium [Senna-S] 1 each PO DAILY PRN 11/06/18 [History] Warfarin [Coumadin] 1 mg PO FR 03/09/19 [History] Warfarin [Coumadin] 2 mg PO SUMOTUWETHSA 03/09/19 [History] traMADol [Ultram] 50 mg PO TID PRN 03/09/19 [History] Diphenoxylate HCl/Atropine [Lomotil Tablet] 1 each PO Q6H PRN #10 tablet 06/05/21 [Rx] Past Medical History HEENT History: Reports: Cataract, Glaucoma, Hard of Hearing, Impaired Vision Cardiovascular History: Reports: Blood Clots/VTE/DVT, CAD, Heart Murmur, Hypertension, PA, SOB on Exertion, Stents, Other (See Below) Other Cardiovascular History: DURING BACK SURGERY 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 IN [place] Respiratory History: Reports: Intubation, Previous, PE Gastrointestinal History: Reports: Hepatitis Genitourinary History: Reports: Chronic Renal Insuffiency, Renal Disease, Urinary Incontinence Other Genitourinary History: stage 3 kidney disease [employer]ATIONS [employer] History: Reports: Fibroids Musculoskeletal History: Reports: Arthritis, Back Pain, Chronic, Fracture, Fib romyalgia, Gout, Osteoarthritis, Osteoporosis, Other (See Below) Other Musculoskeletal History: DJD, hx L fibula, Neurological History: Reports: Neuropathy, Peripheral Psychiatric History: Reports: Anxiety, Depression, Panic Attack 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 History: retirement use of opiate analgesic Endocrine/Metabolic History: Reports: Obesity/BMI 30+ Hematologic History: Reports: Anemia, Anticoagulation Therapy, Blood Transfusion(s) Immunologic History: Reports: None Oncologic (Cancer) History: Reports: None Dermatologic History: Reports: Eczema - Infectious Disease History Infectious Disease History: Reports: Chicken Pox, Hepatitis A, Measles, Mumps - Past Surgical History Cardiovascular Surgical History: Reports: Carotid Stents, Vascular Surgery (Stent placed in aorta secondary to iatrogenic injury to aorta during back surgery), Other (See Below) (Thoracic aortic stent) Social & Family History - Family History Family Medical History: No Pertinent Family History HEENT: Reports: Hearing Impairment Musculoskeletal: Reports: Arthritis, Back pain, Chronic, Fibromyalgia, Osteoarthritis, Osteoporosis Endocrine/Metabolic: Reports: Diabetes, type II Oncologic: Reports: Breast Other Oncologic Family History: Her mother had 4 out 6 girls with breast cancer. - Caffeine Use Caffeine Use: Reports: Coffee Other Caffeine Use: daily - Living Situation & Occupation Living situation: Reports: Occupation: Retired ED ROS GENERAL - Review of Systems Review Of Systems: Comprehensive ROS is negative, except as noted in HPI. ED EXAM, RENAL/ - Physical Exam Exam: See Below Exam Limited By: No Limitations General Appearance: Alert, WD/WN GI/Abdominal: Normal Bowel Sounds, Soft, No Organomegaly Course - Orders/Labs/Meds Labs: Laboratory Tests 06/05/21 Range/Units 19:56 Urine Color Yellow (YELLOW) Urine Appearance Cloudy (CLEAR) Urine pH 6.0 (5.0-6.5) Ur Specific [place] 1.015 (1.010-1.025) Urine Protein 30 H (NEGATIVE) mg/dL Urine Glucose (UA) Normal (NORMAL) mg/dL Urine Ketones Negative (NEGATIVE) mg/dL Urine Occult Blood Large H (NEGATIVE) Urine Nitrite Negative (NEGATIVE) Urine Bilirubin Negative (NEGATIVE) Urine Urobilinogen Normal (NEGATIVE) mg/dL Ur Leukocyte Esterase Large H (NEGATIVE) Urine RBC 30-40 H (0-5) Urine WBC 50-75 H (0-5) Ur Squamous Epith Cells Few H (NS,R,O) Urine Bacteria Few H (NS) Departure - Departure Time of Disposition: 20:41 Disposition: Home, Self-Care 01 Clinical Impression: UTI, Urinary tract infectious disease - Discharge Information Prescriptions: Diphenoxylate HCl/Atropine [Lomotil Tablet] 1 each PO Q6H PRN #10 tablet PRN Reason: Diarrhea - Problem List & Annotations (1) UTI, Urinary tract infectious disease SNOMED Code(s): 50273181 Code(s): N39.0 - URINARY TRACT INFECTION, SITE NOT SPECIFIED Status: Acute - Problem List Review Problem List Initiated/Reviewed/Updated: Yes - Assessment/Plan Plan: Cipro 250 mg PO BID. Lomotil.
[2021-06-06 07:50] VITALS: BP 190/75
[2021-06-06 07:51] VITALS: PULSE 98
== END 2021-06-05 21:20 | disposition home or self-care (01) ==
LOC: FB.ED 19:43
DX: N39.0 Urinary tract infection, site not specified (principal); I25.10 Atherosclerotic heart disease of native coronary artery without angina pectoris; I10 Essential (primary) hypertension; I25.2 Old myocardial infarction; Z79.01 Long term (current) use of anticoagulants; Z79.899 Other long term (current) drug therapy; Z88.0 Allergy status to penicillin; Z88.5 Allergy status to narcotic agent; Z88.8 Allergy status to other drugs, medicaments and biological substances
CPT/HCPCS: 81001; 87086; 99283; A9270-GY

== ENCOUNTER 2022-02-13 11:40 | Inpatient (IN) | payer MEDICARE, OTHER ==
[2022-02-13] MEDS ORDERED: Warfarin Sliding Scale PO SCH (15:00)
[2022-02-13] MEDS ORDERED: Acetaminophen/HYDROcodone 325-10 MG Tab PO ONE (15:59)
[2022-02-13] MEDS: Gabapentin 400 MG Cap PO SCH ×2 (16:01→20:23)
[2022-02-13] MEDS: Acetaminophen 325 MG Tab PO SCH (18:16)
[2022-02-13] MEDS: Ibuprofen 200 MG Tab PO SCH (18:17)
[2022-02-13] MEDS: Aspirin 81 MG Tab.Chew PO SCH (20:23)
[2022-02-13] MEDS: tiZANidine 4 MG Tab PO SCH (20:23)
[2022-02-13] MEDS: Magnesium Oxide 400 MG Tab PO SCH (20:23)
[2022-02-13] MEDS: Latanoprost 0.005% Ophth Soln 2.5 ML Bottle EYEBOTH SCH (20:23)
[2022-02-13] MEDS: Metoprolol Succinate 50 MG Tab.ER PO SCH (20:24)
[2022-02-13] MEDS: traZODone 50 MG Tab PO SCH (20:24)
[2022-02-13] MEDS: traMADol 50 MG Tab PO PRN (22:06)
[2022-02-14] MEDS: Acetaminophen 325 MG Tab PO SCH ×5 (00:41→23:08)
[2022-02-14] MEDS: Ibuprofen 200 MG Tab PO SCH ×5 (00:41→23:09)
[2022-02-14] MEDS: Losartan 100 MG Tab PO SCH (08:48)
[2022-02-14] MEDS: Cyanocobalamin (Vitamin B12) 1,000 MCG Tab PO SCH (08:48)
[2022-02-14] MEDS: Allopurinol 100 MG Tab PO SCH (08:48)
[2022-02-14] MEDS: Multivitamin Tab PO SCH (08:48)
[2022-02-14] MEDS: Metoprolol Succinate 50 MG Tab.ER PO SCH ×2 (08:48→20:50)
[2022-02-14] MEDS: Escitalopram 20 MG Tab PO SCH (08:49)
[2022-02-14] MEDS: Gabapentin 400 MG Cap PO SCH ×3 (08:50→20:50)
[2022-02-14] MEDS ORDERED: Furosemide 20 MG Tab PO SCH (09:00)
[2022-02-14] MEDS: Cholestyramine/Sucrose Powder 4 GM Packet PO SCH (10:35)
[2022-02-14] MEDS: Furosemide 40 MG Tab PO SCH (14:56)
[2022-02-14] MEDS: Warfarin 3 MG Tab PO SCH (16:40)
[2022-02-14] MEDS: Aspirin 81 MG Tab.Chew PO SCH (20:50)
[2022-02-14] MEDS: tiZANidine 4 MG Tab PO SCH (20:50)
[2022-02-14] MEDS: traZODone 50 MG Tab PO SCH (20:50)
[2022-02-14] MEDS: Magnesium Oxide 400 MG Tab PO SCH (20:50)
[2022-02-14] MEDS: traMADol 50 MG Tab PO PRN (20:51)
[2022-02-14] MEDS: Latanoprost 0.005% Ophth Soln 2.5 ML Bottle EYEBOTH SCH (20:51)
[2022-02-15] MEDS: Ibuprofen 200 MG Tab PO SCH ×3 (06:16→18:09)
[2022-02-15] MEDS: Acetaminophen 325 MG Tab PO SCH ×3 (06:16→18:08)
[2022-02-15] MEDS: Furosemide 40 MG Tab PO SCH ×2 (08:03→15:26)
[2022-02-15] MEDS: Cyanocobalamin (Vitamin B12) 1,000 MCG Tab PO SCH (08:05)
[2022-02-15] MEDS: Multivitamin Tab PO SCH (08:06)
[2022-02-15] MEDS: Escitalopram 20 MG Tab PO SCH (08:11)
[2022-02-15] MEDS: Metoprolol Succinate 50 MG Tab.ER PO SCH ×2 (08:11→20:00)
[2022-02-15] MEDS: Losartan 100 MG Tab PO SCH (08:14)
[2022-02-15] MEDS: Allopurinol 100 MG Tab PO SCH (08:16)
[2022-02-15] MEDS: Gabapentin 400 MG Cap PO SCH ×3 (08:28→20:00)
[2022-02-15] MEDS: Cholestyramine/Sucrose Powder 4 GM Packet PO SCH (10:15)
[2022-02-15] MEDS: Warfarin 3 MG Tab PO SCH (17:02)
[2022-02-15] MEDS: Aspirin 81 MG Tab.Chew PO SCH (20:00)
[2022-02-15] MEDS: Magnesium Oxide 400 MG Tab PO SCH (20:00)
[2022-02-15] MEDS: tiZANidine 4 MG Tab PO SCH (20:01)
[2022-02-15] MEDS: traMADol 50 MG Tab PO PRN (20:01)
[2022-02-15] MEDS: traZODone 50 MG Tab PO SCH (20:01)
[2022-02-15] MEDS: Latanoprost 0.005% Ophth Soln 2.5 ML Bottle EYEBOTH SCH (20:01)
[2022-02-16] MEDS: Acetaminophen 325 MG Tab PO SCH ×5 (00:18→23:47)
[2022-02-16] MEDS: Ibuprofen 200 MG Tab PO SCH ×5 (00:18→23:46)
[2022-02-16] MEDS: Furosemide 40 MG Tab PO SCH ×2 (08:28→13:42)
[2022-02-16] MEDS: Losartan 100 MG Tab PO SCH (08:29)
[2022-02-16] MEDS: Escitalopram 20 MG Tab PO SCH (08:31)
[2022-02-16] MEDS: Gabapentin 400 MG Cap PO SCH (08:33)
[2022-02-16] MEDS: Multivitamin Tab PO SCH (08:34)
[2022-02-16] MEDS: Cyanocobalamin (Vitamin B12) 1,000 MCG Tab PO SCH (08:35)
[2022-02-16] MEDS: Allopurinol 100 MG Tab PO SCH (08:35)
[2022-02-16] MEDS: Metoprolol Succinate 50 MG Tab.ER PO SCH ×2 (08:35→21:30)
[2022-02-16] MEDS: Cholestyramine/Sucrose Powder 4 GM Packet PO SCH (09:15)
[2022-02-16] MEDS ORDERED: Gabapentin 100 MG Cap PO ONE (10:30)
[2022-02-16] MEDS: Loperamide 2 MG Cap PO PRN (10:39)
[2022-02-16] MEDS: traMADol 50 MG Tab PO PRN ×2 (13:43→22:57)
[2022-02-16] MEDS: Aspirin 81 MG Tab.Chew PO SCH (21:27)
[2022-02-16] MEDS: Magnesium Oxide 400 MG Tab PO SCH (21:27)
[2022-02-16] MEDS: traZODone 50 MG Tab PO SCH (21:28)
[2022-02-16] MEDS: Latanoprost 0.005% Ophth Soln 2.5 ML Bottle EYEBOTH SCH (21:28)
[2022-02-16] MEDS: tiZANidine 4 MG Tab PO SCH (21:28)
[2022-02-16] MEDS: Gabapentin 600 MG Tab PO SCH (21:40)
[2022-02-17] MEDS: Ibuprofen 200 MG Tab PO SCH (06:03)
[2022-02-17] MEDS: Acetaminophen 325 MG Tab PO SCH ×4 (06:04→23:08)
[2022-02-17] MEDS: Gabapentin 600 MG Tab PO SCH ×2 (08:38→20:55)
[2022-02-17] MEDS: Furosemide 40 MG Tab PO SCH ×2 (08:38→13:36)
[2022-02-17] MEDS: Losartan 100 MG Tab PO SCH (08:39)
[2022-02-17] MEDS: Escitalopram 20 MG Tab PO SCH (08:40)
[2022-02-17] MEDS: Multivitamin Tab PO SCH (08:40)
[2022-02-17] MEDS: Metoprolol Succinate 50 MG Tab.ER PO SCH ×2 (08:41→21:00)
[2022-02-17] MEDS: Allopurinol 100 MG Tab PO SCH (08:42)
[2022-02-17] MEDS: Cyanocobalamin (Vitamin B12) 1,000 MCG Tab PO SCH (08:42)
[2022-02-17] MEDS: Cholestyramine/Sucrose Powder 4 GM Packet PO SCH (10:38)
[2022-02-17] MEDS: Cephalexin 250 MG Cap PO SCH (10:38)
[2022-02-17] MEDS ORDERED: Warfarin 2 MG Tab PO SCH (16:00)
[2022-02-17] MEDS: Loperamide 2 MG Cap PO PRN (17:59)
[2022-02-17] MEDS: Aspirin 81 MG Tab.Chew PO SCH (20:54)
[2022-02-17] MEDS: Magnesium Oxide 400 MG Tab PO SCH (20:55)
[2022-02-17] MEDS: traMADol 50 MG Tab PO PRN (21:01)
[2022-02-17] MEDS: traZODone 50 MG Tab PO SCH (21:01)
[2022-02-17] MEDS: tiZANidine 4 MG Tab PO SCH (21:02)
[2022-02-17] MEDS: Latanoprost 0.005% Ophth Soln 2.5 ML Bottle EYEBOTH SCH (21:02)
[2022-02-18] MEDS: Acetaminophen 325 MG Tab PO SCH ×3 (05:27→17:57)
[2022-02-18] MEDS: Furosemide 40 MG Tab PO SCH ×2 (08:25→14:10)
[2022-02-18] MEDS: Escitalopram 20 MG Tab PO SCH (08:31)
[2022-02-18] MEDS: Cephalexin 250 MG Cap PO SCH (08:31)
[2022-02-18] MEDS: Gabapentin 600 MG Tab PO SCH ×2 (08:31→21:06)
[2022-02-18] MEDS: Metoprolol Succinate 50 MG Tab.ER PO SCH ×2 (08:32→21:04)
[2022-02-18] MEDS: Multivitamin Tab PO SCH (08:32)
[2022-02-18] MEDS: Cyanocobalamin (Vitamin B12) 1,000 MCG Tab PO SCH (08:33)
[2022-02-18] MEDS: Allopurinol 100 MG Tab PO SCH (08:33)
[2022-02-18] MEDS: Cholestyramine/Sucrose Powder 4 GM Packet PO SCH (10:10)
[2022-02-18] MEDS: Losartan 100 MG Tab PO SCH (11:43)
[2022-02-18] MEDS: traMADol 50 MG Tab PO PRN ×2 (14:10→21:07)
[2022-02-18] MEDS ORDERED: Warfarin 2 MG Tab PO SCH (16:00)
[2022-02-18] MEDS: Aspirin 81 MG Tab.Chew PO SCH (20:58)
[2022-02-18] MEDS: Magnesium Oxide 400 MG Tab PO SCH (20:59)
[2022-02-18] MEDS: traZODone 50 MG Tab PO SCH (21:00)
[2022-02-18] MEDS: Latanoprost 0.005% Ophth Soln 2.5 ML Bottle EYEBOTH SCH (21:00)
[2022-02-18] MEDS: tiZANidine 4 MG Tab PO SCH (21:01)
[2022-02-19] MEDS: Acetaminophen 325 MG Tab PO SCH ×4 (01:07→17:01)
[2022-02-19] MEDS: Escitalopram 20 MG Tab PO SCH (08:30)
[2022-02-19] MEDS: Multivitamin Tab PO SCH (08:30)
[2022-02-19] MEDS: Furosemide 40 MG Tab PO SCH ×2 (08:30→13:57)
[2022-02-19] MEDS: Cyanocobalamin (Vitamin B12) 1,000 MCG Tab PO SCH (08:31)
[2022-02-19] MEDS: Metoprolol Succinate 50 MG Tab.ER PO SCH ×2 (08:31→20:29)
[2022-02-19] MEDS: Allopurinol 100 MG Tab PO SCH (08:31)
[2022-02-19] MEDS: Gabapentin 600 MG Tab PO SCH ×2 (08:35→20:28)
[2022-02-19] MEDS: traMADol 50 MG Tab PO PRN ×3 (08:35→20:32)
[2022-02-19] MEDS: Cephalexin 250 MG Cap PO SCH (08:44)
[2022-02-19] MEDS: Cholestyramine/Sucrose Powder 4 GM Packet PO SCH (09:48)
[2022-02-19] MEDS: Losartan 100 MG Tab PO SCH (12:12)
[2022-02-19] MEDS ORDERED: Warfarin 3 MG Tab PO SCH (16:00)
[2022-02-19] MEDS: Warfarin 3 MG Tab PO SCH (17:01)
[2022-02-19] MEDS: Aspirin 81 MG Tab.Chew PO SCH (20:28)
[2022-02-19] MEDS: Magnesium Oxide 400 MG Tab PO SCH (20:28)
[2022-02-19] MEDS: traZODone 50 MG Tab PO SCH (20:30)
[2022-02-19] MEDS: Latanoprost 0.005% Ophth Soln 2.5 ML Bottle EYEBOTH SCH (20:30)
[2022-02-19] MEDS: tiZANidine 4 MG Tab PO SCH (20:32)
[2022-02-20] MEDS: Acetaminophen 325 MG Tab PO SCH ×4 (00:30→17:42)
[2022-02-20] MEDS: Cyanocobalamin (Vitamin B12) 1,000 MCG Tab PO SCH (08:33)
[2022-02-20] MEDS: Multivitamin Tab PO SCH (08:33)
[2022-02-20] MEDS: Allopurinol 100 MG Tab PO SCH (08:33)
[2022-02-20] MEDS: Cephalexin 250 MG Cap PO SCH (08:33)
[2022-02-20] MEDS: Escitalopram 20 MG Tab PO SCH (08:34)
[2022-02-20] MEDS: Metoprolol Succinate 50 MG Tab.ER PO SCH ×2 (08:34→21:18)
[2022-02-20] MEDS: Furosemide 40 MG Tab PO SCH ×2 (08:35→15:43)
[2022-02-20] MEDS: Gabapentin 600 MG Tab PO SCH ×2 (08:37→21:24)
[2022-02-20] MEDS: Cholestyramine/Sucrose Powder 4 GM Packet PO SCH (10:29)
[2022-02-20] MEDS: traMADol 50 MG Tab PO PRN ×2 (10:31→17:41)
[2022-02-20] MEDS: Losartan 100 MG Tab PO SCH (11:45)
[2022-02-20] MEDS: Warfarin 2 MG Tab PO SCH (15:43)
[2022-02-20] MEDS: Magnesium Oxide 400 MG Tab PO SCH (21:17)
[2022-02-20] MEDS: Aspirin 81 MG Tab.Chew PO SCH (21:17)
[2022-02-20] MEDS: tiZANidine 4 MG Tab PO SCH (21:17)
[2022-02-20] MEDS: Latanoprost 0.005% Ophth Soln 2.5 ML Bottle EYEBOTH SCH (21:24)
[2022-02-20] MEDS: traZODone 50 MG Tab PO SCH (21:25)
[2022-02-21] MEDS: Acetaminophen 325 MG Tab PO SCH ×4 (00:20→17:17)
[2022-02-21] MEDS: Escitalopram 20 MG Tab PO SCH (08:41)
[2022-02-21] MEDS: Multivitamin Tab PO SCH (08:41)
[2022-02-21] MEDS: Furosemide 40 MG Tab PO SCH ×2 (08:41→15:06)
[2022-02-21] MEDS: Cephalexin 250 MG Cap PO SCH (08:41)
[2022-02-21] MEDS: Gabapentin 600 MG Tab PO SCH ×2 (08:41→21:04)
[2022-02-21] MEDS: Cyanocobalamin (Vitamin B12) 1,000 MCG Tab PO SCH (08:42)
[2022-02-21] MEDS: Metoprolol Succinate 50 MG Tab.ER PO SCH ×2 (08:42→21:05)
[2022-02-21] MEDS: Allopurinol 100 MG Tab PO SCH (08:42)
[2022-02-21] MEDS: Cholestyramine/Sucrose Powder 4 GM Packet PO SCH (10:06)
[2022-02-21] MEDS: Loperamide 2 MG Cap PO PRN (10:10)
[2022-02-21] MEDS: Losartan 100 MG Tab PO SCH (11:24)
[2022-02-21] MEDS: traMADol 50 MG Tab PO PRN ×2 (11:24→21:07)
[2022-02-21] MEDS: Warfarin 3 MG Tab PO SCH (17:17)
[2022-02-21] MEDS: Latanoprost 0.005% Ophth Soln 2.5 ML Bottle EYEBOTH SCH (21:01)
[2022-02-21] MEDS: Aspirin 81 MG Tab.Chew PO SCH (21:03)
[2022-02-21] MEDS: Magnesium Oxide 400 MG Tab PO SCH (21:03)
[2022-02-21] MEDS: tiZANidine 4 MG Tab PO SCH (21:07)
[2022-02-21] MEDS: traZODone 50 MG Tab PO SCH (21:07)
[2022-02-22] MEDS: Acetaminophen 325 MG Tab PO SCH ×4 (02:28→17:32)
[2022-02-22] MEDS: Cyanocobalamin (Vitamin B12) 1,000 MCG Tab PO SCH (08:46)
[2022-02-22] MEDS: Allopurinol 100 MG Tab PO SCH (08:46)
[2022-02-22] MEDS: Gabapentin 600 MG Tab PO SCH ×2 (08:47→21:08)
[2022-02-22] MEDS: Multivitamin Tab PO SCH (08:47)
[2022-02-22] MEDS: Escitalopram 20 MG Tab PO SCH (08:47)
[2022-02-22] MEDS: Furosemide 40 MG Tab PO SCH ×2 (08:47→13:07)
[2022-02-22] MEDS: Cephalexin 250 MG Cap PO SCH (08:47)
[2022-02-22] MEDS: Metoprolol Succinate 50 MG Tab.ER PO SCH ×2 (08:47→21:09)
[2022-02-22] MEDS: traMADol 50 MG Tab PO PRN ×2 (08:50→16:28)
[2022-02-22] MEDS: Cholestyramine/Sucrose Powder 4 GM Packet PO SCH (10:24)
[2022-02-22] MEDS: Losartan 100 MG Tab PO SCH (11:48)
[2022-02-22] MEDS: Warfarin 2 MG Tab PO SCH (16:28)
[2022-02-22] MEDS: traZODone 50 MG Tab PO SCH (21:08)
[2022-02-22] MEDS: Latanoprost 0.005% Ophth Soln 2.5 ML Bottle EYEBOTH SCH (21:08)
[2022-02-22] MEDS: Magnesium Oxide 400 MG Tab PO SCH (21:08)
[2022-02-22] MEDS: Aspirin 81 MG Tab.Chew PO SCH (21:08)
[2022-02-22] MEDS: tiZANidine 4 MG Tab PO SCH (21:09)
[2022-02-23] MEDS: traMADol 50 MG Tab PO PRN ×2 (00:35→20:22)
[2022-02-23] MEDS: Acetaminophen 325 MG Tab PO SCH ×4 (00:35→17:00)
[2022-02-23] MEDS: Furosemide 40 MG Tab PO SCH ×2 (08:25→13:43)
[2022-02-23] MEDS: Multivitamin Tab PO SCH (08:29)
[2022-02-23] MEDS: Cephalexin 250 MG Cap PO SCH (08:29)
[2022-02-23] MEDS: Escitalopram 20 MG Tab PO SCH (08:29)
[2022-02-23] MEDS: Metoprolol Succinate 50 MG Tab.ER PO SCH ×2 (08:30→20:22)
[2022-02-23] MEDS: Gabapentin 600 MG Tab PO SCH ×2 (08:31→20:21)
[2022-02-23] MEDS: Cyanocobalamin (Vitamin B12) 1,000 MCG Tab PO SCH (08:31)
[2022-02-23] MEDS: Allopurinol 100 MG Tab PO SCH (08:31)
[2022-02-23] MEDS: Cholestyramine/Sucrose Powder 4 GM Packet PO SCH (09:09)
[2022-02-23] MEDS: Losartan 100 MG Tab PO SCH (11:32)
[2022-02-23] MEDS: Warfarin 2 MG Tab PO SCH (15:14)
[2022-02-23] MEDS ORDERED: Warfarin 2 MG Tab PO SCH (16:00)
[2022-02-23] MEDS: Aspirin 81 MG Tab.Chew PO SCH (20:21)
[2022-02-23] MEDS: traZODone 50 MG Tab PO SCH (20:22)
[2022-02-23] MEDS: Magnesium Oxide 400 MG Tab PO SCH (20:22)
[2022-02-23] MEDS: tiZANidine 4 MG Tab PO SCH (20:22)
[2022-02-23] MEDS: Latanoprost 0.005% Ophth Soln 2.5 ML Bottle EYEBOTH SCH (20:22)
[2022-02-24] MEDS: Acetaminophen 325 MG Tab PO SCH ×4 (00:06→17:26)
[2022-02-24] MEDS: Escitalopram 20 MG Tab PO SCH (08:20)
[2022-02-24] MEDS: Cephalexin 250 MG Cap PO SCH (08:20)
[2022-02-24] MEDS: Furosemide 40 MG Tab PO SCH ×2 (08:20→13:09)
[2022-02-24] MEDS: Multivitamin Tab PO SCH (08:21)
[2022-02-24] MEDS: Cyanocobalamin (Vitamin B12) 1,000 MCG Tab PO SCH (08:21)
[2022-02-24] MEDS: Allopurinol 100 MG Tab PO SCH (08:22)
[2022-02-24] MEDS: Metoprolol Succinate 50 MG Tab.ER PO SCH ×2 (08:22→20:42)
[2022-02-24] MEDS: Gabapentin 600 MG Tab PO SCH ×2 (08:31→20:42)
[2022-02-24] MEDS: Cholestyramine/Sucrose Powder 4 GM Packet PO SCH (09:23)
[2022-02-24] MEDS: Losartan 100 MG Tab PO SCH (11:28)
[2022-02-24] MEDS: traMADol 50 MG Tab PO PRN ×2 (14:31→20:43)
[2022-02-24] MEDS: Warfarin 2 MG Tab PO SCH (15:54)
[2022-02-24] MEDS: traZODone 50 MG Tab PO SCH (20:42)
[2022-02-24] MEDS: Magnesium Oxide 400 MG Tab PO SCH (20:42)
[2022-02-24] MEDS: Aspirin 81 MG Tab.Chew PO SCH (20:42)
[2022-02-24] MEDS: tiZANidine 4 MG Tab PO SCH (20:42)
[2022-02-24] MEDS: Latanoprost 0.005% Ophth Soln 2.5 ML Bottle EYEBOTH SCH (20:43)
[2022-02-25] MEDS: Acetaminophen 325 MG Tab PO SCH ×4 (00:12→17:57)
[2022-02-25] MEDS: traMADol 50 MG Tab PO PRN ×3 (02:21→15:31)
[2022-02-25] MEDS: Cephalexin 250 MG Cap PO SCH (08:41)
[2022-02-25] MEDS: Furosemide 40 MG Tab PO SCH ×2 (08:41→13:11)
[2022-02-25] MEDS: Escitalopram 20 MG Tab PO SCH (08:42)
[2022-02-25] MEDS: Multivitamin Tab PO SCH (08:42)
[2022-02-25] MEDS: Gabapentin 600 MG Tab PO SCH ×2 (08:42→20:23)
[2022-02-25] MEDS: Cyanocobalamin (Vitamin B12) 1,000 MCG Tab PO SCH (08:43)
[2022-02-25] MEDS: Metoprolol Succinate 50 MG Tab.ER PO SCH ×2 (08:43→20:24)
[2022-02-25] MEDS: Allopurinol 100 MG Tab PO SCH (08:44)
[2022-02-25] MEDS: Cholestyramine/Sucrose Powder 4 GM Packet PO SCH (09:55)
[2022-02-25] MEDS: Losartan 100 MG Tab PO SCH (11:33)
[2022-02-25] MEDS: Warfarin 2 MG Tab PO SCH (15:31)
[2022-02-25] MEDS: Latanoprost 0.005% Ophth Soln 2.5 ML Bottle EYEBOTH SCH (20:23)
[2022-02-25] MEDS: Magnesium Oxide 400 MG Tab PO SCH (20:23)
[2022-02-25] MEDS: traZODone 50 MG Tab PO SCH (20:23)
[2022-02-25] MEDS: Aspirin 81 MG Tab.Chew PO SCH (20:23)
[2022-02-25] MEDS: tiZANidine 4 MG Tab PO SCH (20:23)
[2022-02-26] MEDS: traMADol 50 MG Tab PO PRN ×2 (00:05→12:38)
[2022-02-26] MEDS: Acetaminophen 325 MG Tab PO SCH ×3 (00:05→11:02)
[2022-02-26 04:55] VITALS: PULSE 61
[2022-02-26] MEDS: Furosemide 40 MG Tab PO SCH (08:40)
[2022-02-26] MEDS: Multivitamin Tab PO SCH (08:40)
[2022-02-26] MEDS: Metoprolol Succinate 50 MG Tab.ER PO SCH (08:40)
[2022-02-26] MEDS: Escitalopram 20 MG Tab PO SCH (08:41)
[2022-02-26] MEDS: Allopurinol 100 MG Tab PO SCH (08:41)
[2022-02-26] MEDS: Cyanocobalamin (Vitamin B12) 1,000 MCG Tab PO SCH (08:41)
[2022-02-26] MEDS: Cephalexin 250 MG Cap PO SCH (08:41)
[2022-02-26] MEDS: Gabapentin 600 MG Tab PO SCH (08:41)
[2022-02-26] MEDS: Cholestyramine/Sucrose Powder 4 GM Packet PO SCH (10:58)
[2022-02-26] MEDS: Losartan 100 MG Tab PO SCH (11:00)
[2022-02-26 11:03] VITALS: BP 155/67
[2022-02-26] MEDS ORDERED: Warfarin 3 MG Tab PO SCH (16:00)
== END 2022-02-26 12:50 | disposition home health service (06) | DRG 560 ==
LOC: FB.MS 14:40
PROVIDERS: ADMIT Family Medicine; ATTEND Student in an Organized Health Care Education/Training Program
DX: S42.301D Unspecified fracture of shaft of humerus, right arm, subsequent encounter for fracture with routine healing (principal); I50.32 Chronic diastolic (congestive) heart failure; I13.0 Hypertensive heart and chronic kidney disease with heart failure and stage 1 through stage 4 chronic kidney disease, or unspecified chronic kidney disease; I25.10 Atherosclerotic heart disease of native coronary artery without angina pectoris; N18.30 Chronic kidney disease, stage 3 unspecified; M15.9 Polyosteoarthritis, unspecified; E66.9 Obesity, unspecified; I27.20 Pulmonary hypertension, unspecified; R29.6 Repeated falls; Z51.5 Encounter for palliative care; M10.9 Gout, unspecified; M54.59 Other low back pain; G89.29 Other chronic pain; H91.90 Unspecified hearing loss, unspecified ear; H54.7 Unspecified visual loss; G62.9 Polyneuropathy, unspecified; D63.1 Anemia in chronic kidney disease; F41.0 Panic disorder [episodic paroxysmal anxiety]; F32.A Depression, unspecified; Z96.619 Presence of unspecified artificial shoulder joint; Z96.653 Presence of artificial knee joint, bilateral; M79.7 Fibromyalgia; Z90.49 Acquired absence of other specified parts of digestive tract; Z90.710 Acquired absence of both cervix and uterus; I25.2 Old myocardial infarction; Z86.718 Personal history of other venous thrombosis and embolism; Z86.79 Personal history of other diseases of the circulatory system; Z86.711 Personal history of pulmonary embolism; Z79.01 Long term (current) use of anticoagulants; Z88.0 Allergy status to penicillin; Z88.5 Allergy status to narcotic agent; Z79.899 Other long term (current) drug therapy; Z95.5 Presence of coronary angioplasty implant and graft; Z85.828 Personal history of other malignant neoplasm of skin; Z68.33 Body mass index [BMI] 33.0-33.9, adult
CPT/HCPCS: 36415; 73060-RT; 80048; 82040; 85610; 97110-GO; 97116-GP; 97162-GP; 97166-GO; 97530-GO; 97530-GP; 97535-GO; A9270-GY

== ENCOUNTER 2022-09-20 09:59 | Inpatient (IN) | payer MEDICARE ==
[2022-09-20] MEDS ORDERED: hydrALAZINE 25 MG Tab PO PRN (16:47)
[2022-09-20] MEDS ORDERED: Furosemide 40 MG Tab PO PRN (16:47)
[2022-09-20] MEDS ORDERED: Warfarin Sliding Scale PO SCH (17:00)
[2022-09-20] MEDS ORDERED: tiZANidine 4 MG Tab PO PRN (17:00)
[2022-09-20] MEDS: Acetaminophen 325 MG Tab PO SCH (18:05)
[2022-09-20] MEDS: Gabapentin 600 MG Tab PO SCH ×2 (18:05→21:20)
[2022-09-20] MEDS: Metoprolol Succinate 50 MG Tab.ER PO SCH (21:19)
[2022-09-20] MEDS: Magnesium Oxide 400 MG Tab PO SCH (21:20)
[2022-09-20] MEDS: traZODone 50 MG Tab PO SCH (21:20)
[2022-09-21] MEDS: Acetaminophen 325 MG Tab PO SCH ×4 (00:11→18:08)
[2022-09-21] MEDS ORDERED: Aspirin 81 MG Tab.EC PO SCH (09:00)
[2022-09-21] MEDS ORDERED: Furosemide 40 MG Tab PO SCH (09:00)
[2022-09-21] MEDS: Metoprolol Succinate 50 MG Tab.ER PO SCH ×2 (09:23→20:56)
[2022-09-21] MEDS: Ascorbic Acid 500 MG Tab PO SCH (09:23)
[2022-09-21] MEDS: Allopurinol 100 MG Tab PO SCH (09:24)
[2022-09-21] MEDS: Cyanocobalamin (Vitamin B12) 1,000 MCG Tab PO SCH (09:24)
[2022-09-21] MEDS: Escitalopram 20 MG Tab PO SCH (09:24)
[2022-09-21] MEDS: Multivitamin Tab PO SCH (09:25)
[2022-09-21] MEDS: Cephalexin 250 MG Cap PO SCH (09:25)
[2022-09-21] MEDS: Ferrous Sulfate 325 MG Tab PO SCH (09:26)
[2022-09-21] MEDS: Gabapentin 600 MG Tab PO SCH ×4 (09:31→20:57)
[2022-09-21] MEDS: Cholestyramine/Sucrose Powder 4 GM Packet PO SCH (10:36)
[2022-09-21] MEDS: Warfarin 2 MG Tab PO SCH (16:48)
[2022-09-21] MEDS: Furosemide 40 MG Tab PO SCH (18:08)
[2022-09-21] MEDS: Magnesium Oxide 400 MG Tab PO SCH (20:51)
[2022-09-21] MEDS: traZODone 50 MG Tab PO SCH (20:52)
[2022-09-21] MEDS: Acetaminophen/HYDROcodone 325-5 MG Tab PO PRN (20:57)
[2022-09-22] MEDS: Acetaminophen 325 MG Tab PO SCH ×4 (03:14→18:02)
[2022-09-22] MEDS: Gabapentin 600 MG Tab PO SCH ×4 (08:52→20:27)
[2022-09-22] MEDS: Cephalexin 250 MG Cap PO SCH (08:53)
[2022-09-22] MEDS: Cyanocobalamin (Vitamin B12) 1,000 MCG Tab PO SCH (08:53)
[2022-09-22] MEDS: Furosemide 40 MG Tab PO SCH ×2 (08:53→18:28)
[2022-09-22] MEDS: Ferrous Sulfate 325 MG Tab PO SCH (08:53)
[2022-09-22] MEDS: Escitalopram 20 MG Tab PO SCH (08:53)
[2022-09-22] MEDS: Multivitamin Tab PO SCH (08:54)
[2022-09-22] MEDS: Ascorbic Acid 500 MG Tab PO SCH (08:56)
[2022-09-22] MEDS: Metoprolol Succinate 50 MG Tab.ER PO SCH ×2 (09:03→20:39)
[2022-09-22] MEDS: Allopurinol 100 MG Tab PO SCH (09:04)
[2022-09-22] MEDS: Cholestyramine/Sucrose Powder 4 GM Packet PO SCH (10:20)
[2022-09-22] MEDS: traMADol 50 MG Tab PO PRN (16:07)
[2022-09-22] MEDS: Warfarin 2 MG Tab PO SCH (16:12)
[2022-09-22] MEDS: Acetaminophen/HYDROcodone 325-5 MG Tab PO PRN (20:27)
[2022-09-22] MEDS: Magnesium Oxide 400 MG Tab PO SCH (20:38)
[2022-09-22] MEDS: Aspirin 81 MG Tab.EC PO SCH (20:39)
[2022-09-22] MEDS: traZODone 50 MG Tab PO SCH (20:39)
[2022-09-23] MEDS: Acetaminophen 325 MG Tab PO SCH ×2 (00:53→05:44)
[2022-09-23] MEDS: Multivitamin Tab PO SCH (08:27)
[2022-09-23] MEDS: Allopurinol 100 MG Tab PO SCH (08:28)
[2022-09-23] MEDS: Cephalexin 250 MG Cap PO SCH (08:28)
[2022-09-23] MEDS: Cyanocobalamin (Vitamin B12) 1,000 MCG Tab PO SCH (08:28)
[2022-09-23] MEDS: Furosemide 40 MG Tab PO SCH ×2 (08:28→17:35)
[2022-09-23] MEDS: Escitalopram 20 MG Tab PO SCH (08:28)
[2022-09-23] MEDS: Ferrous Sulfate 325 MG Tab PO SCH (08:28)
[2022-09-23] MEDS: Ascorbic Acid 500 MG Tab PO SCH (08:28)
[2022-09-23] MEDS: Metoprolol Succinate 50 MG Tab.ER PO SCH ×2 (08:29→20:29)
[2022-09-23] MEDS: Gabapentin 600 MG Tab PO SCH ×4 (08:35→20:29)
[2022-09-23] MEDS: Cholestyramine/Sucrose Powder 4 GM Packet PO SCH (09:42)
[2022-09-23] MEDS: Warfarin 2 MG Tab PO SCH (16:17)
[2022-09-23] MEDS: Magnesium Oxide 400 MG Tab PO SCH (20:29)
[2022-09-23] MEDS: Aspirin 81 MG Tab.EC PO SCH (20:29)
[2022-09-23] MEDS: Acetaminophen/HYDROcodone 325-5 MG Tab PO PRN (20:30)
[2022-09-23] MEDS: traZODone 50 MG Tab PO SCH (20:30)
[2022-09-24 06:50] LABS: ESTIMATED GFR 84 mL/min (>60)
[2022-09-24] MEDS: Metoprolol Succinate 50 MG Tab.ER PO SCH ×2 (08:55→20:23)
[2022-09-24] MEDS: Gabapentin 600 MG Tab PO SCH ×4 (08:55→20:21)
[2022-09-24] MEDS: Escitalopram 20 MG Tab PO SCH (08:55)
[2022-09-24] MEDS: Multivitamin Tab PO SCH (08:55)
[2022-09-24] MEDS: Cyanocobalamin (Vitamin B12) 1,000 MCG Tab PO SCH (08:55)
[2022-09-24] MEDS: Furosemide 40 MG Tab PO SCH ×2 (08:55→17:13)
[2022-09-24] MEDS: Cephalexin 250 MG Cap PO SCH (08:55)
[2022-09-24] MEDS: Ferrous Sulfate 325 MG Tab PO SCH (08:55)
[2022-09-24] MEDS: Allopurinol 100 MG Tab PO SCH (08:56)
[2022-09-24] MEDS: Acetaminophen 500 MG Tab PO PRN (08:56)
[2022-09-24] MEDS: Ascorbic Acid 500 MG Tab PO SCH (08:56)
[2022-09-24] MEDS: Cholestyramine/Sucrose Powder 4 GM Packet PO SCH (10:40)
[2022-09-24] MEDS: Warfarin 3 MG Tab PO SCH (16:28)
[2022-09-24] MEDS: Acetaminophen/HYDROcodone 325-5 MG Tab PO PRN (16:28)
[2022-09-24] MEDS: ROCKLATAN EYEBOTH SCH ×2 (17:14→20:21)
[2022-09-24] MEDS: EYE EYEBOTH SCH ×2 (17:14→20:21)
[2022-09-24] MEDS: Aspirin 81 MG Tab.EC PO SCH (20:23)
[2022-09-24] MEDS: Magnesium Oxide 400 MG Tab PO SCH (20:23)
[2022-09-24] MEDS: traZODone 50 MG Tab PO SCH (20:23)
[2022-09-25] MEDS: Gabapentin 600 MG Tab PO SCH ×4 (08:26→20:16)
[2022-09-25] MEDS: Ferrous Sulfate 325 MG Tab PO SCH ×2 (08:32→17:40)
[2022-09-25] MEDS: Furosemide 40 MG Tab PO SCH ×2 (08:32→17:39)
[2022-09-25] MEDS: Cephalexin 250 MG Cap PO SCH (08:32)
[2022-09-25] MEDS: Metoprolol Succinate 50 MG Tab.ER PO SCH ×2 (08:33→20:16)
[2022-09-25] MEDS: Multivitamin Tab PO SCH (08:33)
[2022-09-25] MEDS: Escitalopram 20 MG Tab PO SCH (08:33)
[2022-09-25] MEDS: Allopurinol 100 MG Tab PO SCH (08:34)
[2022-09-25] MEDS: Ascorbic Acid 500 MG Tab PO SCH (08:34)
[2022-09-25] MEDS: Cyanocobalamin (Vitamin B12) 1,000 MCG Tab PO SCH (08:34)
[2022-09-25] MEDS: Acetaminophen/HYDROcodone 325-5 MG Tab PO PRN ×2 (08:41→14:53)
[2022-09-25] MEDS: Cholestyramine/Sucrose Powder 4 GM Packet PO SCH (10:55)
[2022-09-25] MEDS: Warfarin 2 MG Tab PO SCH (16:30)
[2022-09-25] MEDS: EYE EYEBOTH SCH (20:15)
[2022-09-25] MEDS: ROCKLATAN EYEBOTH SCH (20:15)
[2022-09-25] MEDS: traZODone 50 MG Tab PO SCH (20:16)
[2022-09-25] MEDS: Aspirin 81 MG Tab.EC PO SCH (20:16)
[2022-09-25] MEDS: Magnesium Oxide 400 MG Tab PO SCH (20:16)
[2022-09-25] MEDS ORDERED: diphenhydrAMINE 25 MG Cap PO ONE (21:56)
[2022-09-26] MEDS: Acetaminophen/HYDROcodone 325-5 MG Tab PO PRN ×3 (01:49→17:03)
[2022-09-26] MEDS: Ferrous Sulfate 325 MG Tab PO SCH ×2 (08:13→17:03)
[2022-09-26] MEDS: Cephalexin 250 MG Cap PO SCH (08:13)
[2022-09-26] MEDS: Escitalopram 20 MG Tab PO SCH (08:14)
[2022-09-26] MEDS: Multivitamin Tab PO SCH (08:14)
[2022-09-26] MEDS: Furosemide 40 MG Tab PO SCH ×2 (08:14→17:03)
[2022-09-26] MEDS: Metoprolol Succinate 50 MG Tab.ER PO SCH ×2 (08:14→20:56)
[2022-09-26] MEDS: Allopurinol 100 MG Tab PO SCH (08:15)
[2022-09-26] MEDS: Ascorbic Acid 500 MG Tab PO SCH (08:15)
[2022-09-26] MEDS: Cyanocobalamin (Vitamin B12) 1,000 MCG Tab PO SCH (08:15)
[2022-09-26] MEDS: Gabapentin 600 MG Tab PO SCH ×4 (08:18→20:56)
[2022-09-26] MEDS: Cholestyramine/Sucrose Powder 4 GM Packet PO SCH (09:56)
[2022-09-26] MEDS: Warfarin 2 MG Tab PO SCH (17:00)
[2022-09-26] MEDS: ROCKLATAN EYEBOTH SCH (20:54)
[2022-09-26] MEDS: EYE EYEBOTH SCH (20:54)
[2022-09-26] MEDS: Aspirin 81 MG Tab.EC PO SCH (20:56)
[2022-09-26] MEDS: traZODone 50 MG Tab PO SCH (20:56)
[2022-09-26] MEDS: Magnesium Oxide 400 MG Tab PO SCH (20:56)
[2022-09-27] MEDS: Acetaminophen/HYDROcodone 325-5 MG Tab PO PRN ×3 (06:01→20:35)
[2022-09-27] MEDS ORDERED: Losartan 50 MG Tab PO SCH (09:00)
[2022-09-27] MEDS: Ferrous Sulfate 325 MG Tab PO SCH ×2 (09:10→17:12)
[2022-09-27] MEDS: Furosemide 40 MG Tab PO SCH ×2 (09:10→17:33)
[2022-09-27] MEDS: Cephalexin 250 MG Cap PO SCH (09:10)
[2022-09-27] MEDS: Escitalopram 20 MG Tab PO SCH (09:10)
[2022-09-27] MEDS: Multivitamin Tab PO SCH (09:11)
[2022-09-27] MEDS: Allopurinol 100 MG Tab PO SCH (09:11)
[2022-09-27] MEDS: Gabapentin 600 MG Tab PO SCH ×4 (09:11→20:30)
[2022-09-27] MEDS: Ascorbic Acid 500 MG Tab PO SCH (09:11)
[2022-09-27] MEDS: Cyanocobalamin (Vitamin B12) 1,000 MCG Tab PO SCH (09:11)
[2022-09-27] MEDS: Metoprolol Succinate 50 MG Tab.ER PO SCH ×2 (09:14→20:33)
[2022-09-27] MEDS: Cholestyramine/Sucrose Powder 4 GM Packet PO SCH (10:45)
[2022-09-27] MEDS: Warfarin 3 MG Tab PO SCH (15:20)
[2022-09-27] MEDS: Magnesium Oxide 400 MG Tab PO SCH (20:30)
[2022-09-27] MEDS: Aspirin 81 MG Tab.EC PO SCH (20:30)
[2022-09-27] MEDS: EYE EYEBOTH SCH (20:30)
[2022-09-27] MEDS: ROCKLATAN EYEBOTH SCH (20:30)
[2022-09-27] MEDS: traZODone 50 MG Tab PO SCH (20:31)
[2022-09-27] MEDS: Loratadine 10 MG Tab PO SCH (20:44)
[2022-09-28] MEDS: Escitalopram 20 MG Tab PO SCH (08:48)
[2022-09-28] MEDS: Multivitamin Tab PO SCH (08:48)
[2022-09-28] MEDS: Furosemide 40 MG Tab PO SCH ×2 (08:48→17:52)
[2022-09-28] MEDS: Metoprolol Succinate 50 MG Tab.ER PO SCH ×2 (08:48→20:16)
[2022-09-28] MEDS: Ferrous Sulfate 325 MG Tab PO SCH ×2 (08:48→17:52)
[2022-09-28] MEDS: Cyanocobalamin (Vitamin B12) 1,000 MCG Tab PO SCH (08:51)
[2022-09-28] MEDS: Gabapentin 600 MG Tab PO SCH ×4 (08:51→20:15)
[2022-09-28] MEDS: Acetaminophen 500 MG Tab PO PRN ×2 (08:57→17:58)
[2022-09-28] MEDS: Cholestyramine/Sucrose Powder 4 GM Packet PO SCH (10:32)
[2022-09-28] MEDS: Losartan 50 MG Tab PO SCH (12:19)
[2022-09-28] MEDS: Acetaminophen/HYDROcodone 325-5 MG Tab PO PRN ×2 (12:23→20:15)
[2022-09-28] MEDS: Ascorbic Acid 500 MG Tab PO SCH (12:23)
[2022-09-28] MEDS: Allopurinol 100 MG Tab PO SCH (12:23)
[2022-09-28] MEDS: Warfarin 2 MG Tab PO SCH (16:57)
[2022-09-28] MEDS: Cephalexin 250 MG Cap PO SCH (17:52)
[2022-09-28] MEDS: EYE EYEBOTH SCH (20:15)
[2022-09-28] MEDS: ROCKLATAN EYEBOTH SCH (20:15)
[2022-09-28] MEDS: Loratadine 10 MG Tab PO SCH (20:15)
[2022-09-28] MEDS: Aspirin 81 MG Tab.EC PO SCH (20:15)
[2022-09-28] MEDS: Magnesium Oxide 400 MG Tab PO SCH (20:15)
[2022-09-28] MEDS: traZODone 50 MG Tab PO SCH (20:16)
[2022-09-29] MEDS: Acetaminophen/HYDROcodone 325-5 MG Tab PO PRN ×2 (06:24→17:19)
[2022-09-29] MEDS: Ferrous Sulfate 325 MG Tab PO SCH ×2 (08:48→17:19)
[2022-09-29] MEDS: Escitalopram 20 MG Tab PO SCH (08:48)
[2022-09-29] MEDS: Furosemide 40 MG Tab PO SCH ×2 (08:48→17:19)
[2022-09-29] MEDS: Cyanocobalamin (Vitamin B12) 1,000 MCG Tab PO SCH (08:48)
[2022-09-29] MEDS: Multivitamin Tab PO SCH (08:48)
[2022-09-29] MEDS: Gabapentin 600 MG Tab PO SCH ×4 (08:48→20:10)
[2022-09-29] MEDS: Metoprolol Succinate 50 MG Tab.ER PO SCH ×2 (08:49→20:10)
[2022-09-29] MEDS: Cholestyramine/Sucrose Powder 4 GM Packet PO SCH (11:08)
[2022-09-29] MEDS: Losartan 50 MG Tab PO SCH (12:37)
[2022-09-29] MEDS: Allopurinol 100 MG Tab PO SCH (12:40)
[2022-09-29] MEDS: Ascorbic Acid 500 MG Tab PO SCH (12:41)
[2022-09-29] MEDS: Acetaminophen 500 MG Tab PO PRN (12:41)
[2022-09-29] MEDS: Warfarin 2 MG Tab PO SCH (17:19)
[2022-09-29] MEDS: Cephalexin 250 MG Cap PO SCH (17:19)
[2022-09-29] MEDS: traMADol 50 MG Tab PO PRN (20:09)
[2022-09-29] MEDS: traZODone 50 MG Tab PO SCH (20:10)
[2022-09-29] MEDS: Magnesium Oxide 400 MG Tab PO SCH (20:10)
[2022-09-29] MEDS: EYE EYEBOTH SCH (20:10)
[2022-09-29] MEDS: ROCKLATAN EYEBOTH SCH (20:10)
[2022-09-29] MEDS: Loratadine 10 MG Tab PO SCH (20:10)
[2022-09-29] MEDS: Aspirin 81 MG Tab.EC PO SCH (20:10)
[2022-09-30] MEDS: Gabapentin 600 MG Tab PO SCH ×4 (08:20→20:05)
[2022-09-30] MEDS: Escitalopram 20 MG Tab PO SCH (08:20)
[2022-09-30] MEDS: Ferrous Sulfate 325 MG Tab PO SCH ×2 (08:20→17:20)
[2022-09-30] MEDS: Furosemide 40 MG Tab PO SCH ×2 (08:20→17:20)
[2022-09-30] MEDS: Metoprolol Succinate 50 MG Tab.ER PO SCH ×2 (08:21→20:06)
[2022-09-30] MEDS: Acetaminophen/HYDROcodone 325-5 MG Tab PO PRN ×2 (08:21→20:04)
[2022-09-30] MEDS: Cyanocobalamin (Vitamin B12) 1,000 MCG Tab PO SCH (08:21)
[2022-09-30] MEDS: Multivitamin Tab PO SCH (08:21)
[2022-09-30] MEDS: Cholestyramine/Sucrose Powder 4 GM Packet PO SCH (10:13)
[2022-09-30] MEDS: Losartan 50 MG Tab PO SCH (11:38)
[2022-09-30] MEDS: Ascorbic Acid 500 MG Tab PO SCH (11:39)
[2022-09-30] MEDS: Allopurinol 100 MG Tab PO SCH (11:39)
[2022-09-30] MEDS: Warfarin 2 MG Tab PO SCH (17:19)
[2022-09-30] MEDS: Cephalexin 250 MG Cap PO SCH (17:20)
[2022-09-30] MEDS: ROCKLATAN EYEBOTH SCH (20:05)
[2022-09-30] MEDS: EYE EYEBOTH SCH (20:05)
[2022-09-30] MEDS: Aspirin 81 MG Tab.EC PO SCH (20:06)
[2022-09-30] MEDS: traZODone 50 MG Tab PO SCH (20:06)
[2022-09-30] MEDS: Loratadine 10 MG Tab PO SCH (20:06)
[2022-09-30] MEDS: Magnesium Oxide 400 MG Tab PO SCH (20:06)
[2022-10-01 07:20] LABS: ESTIMATED GFR 71 mL/min (>60)
[2022-10-01] MEDS: Ferrous Sulfate 325 MG Tab PO SCH ×2 (08:18→18:28)
[2022-10-01] MEDS: Furosemide 40 MG Tab PO SCH ×2 (08:19→18:29)
[2022-10-01] MEDS: Multivitamin Tab PO SCH (08:19)
[2022-10-01] MEDS: Escitalopram 20 MG Tab PO SCH (08:19)
[2022-10-01] MEDS: Cyanocobalamin (Vitamin B12) 1,000 MCG Tab PO SCH (08:20)
[2022-10-01] MEDS: Metoprolol Succinate 50 MG Tab.ER PO SCH ×2 (08:21→20:38)
[2022-10-01] MEDS: Gabapentin 600 MG Tab PO SCH ×4 (08:25→20:38)
[2022-10-01] MEDS: Cholestyramine/Sucrose Powder 4 GM Packet PO SCH (10:08)
[2022-10-01] MEDS: Ascorbic Acid 500 MG Tab PO SCH (12:05)
[2022-10-01] MEDS: traMADol 50 MG Tab PO PRN (12:13)
[2022-10-01] MEDS: Losartan 50 MG Tab PO SCH (12:16)
[2022-10-01] MEDS: Allopurinol 100 MG Tab PO SCH (12:22)
[2022-10-01] MEDS: Warfarin 3 MG Tab PO SCH (17:08)
[2022-10-01] MEDS: Cephalexin 250 MG Cap PO SCH (18:29)
[2022-10-01] MEDS: Acetaminophen/HYDROcodone 325-5 MG Tab PO PRN (18:42)
[2022-10-01] MEDS: traZODone 50 MG Tab PO SCH (20:39)
[2022-10-01] MEDS: Loratadine 10 MG Tab PO SCH (20:39)
[2022-10-01] MEDS: Magnesium Oxide 400 MG Tab PO SCH (20:39)
[2022-10-01] MEDS: Aspirin 81 MG Tab.EC PO SCH (20:40)
[2022-10-01] MEDS: EYE EYEBOTH SCH (20:40)
[2022-10-01] MEDS: ROCKLATAN EYEBOTH SCH (20:40)
[2022-10-02] MEDS: Escitalopram 20 MG Tab PO SCH (09:13)
[2022-10-02] MEDS: Furosemide 40 MG Tab PO SCH ×2 (09:13→18:15)
[2022-10-02] MEDS: Cyanocobalamin (Vitamin B12) 1,000 MCG Tab PO SCH (09:14)
[2022-10-02] MEDS: Ferrous Sulfate 325 MG Tab PO SCH ×2 (09:14→18:15)
[2022-10-02] MEDS: Metoprolol Succinate 50 MG Tab.ER PO SCH ×2 (09:15→20:12)
[2022-10-02] MEDS: Multivitamin Tab PO SCH (09:15)
[2022-10-02] MEDS: Gabapentin 600 MG Tab PO SCH ×4 (09:25→20:11)
[2022-10-02] MEDS: Acetaminophen/HYDROcodone 325-5 MG Tab PO PRN (09:25)
[2022-10-02] MEDS: Cholestyramine/Sucrose Powder 4 GM Packet PO SCH (10:33)
[2022-10-02] MEDS: Allopurinol 100 MG Tab PO SCH (12:25)
[2022-10-02] MEDS: Ascorbic Acid 500 MG Tab PO SCH (12:25)
[2022-10-02] MEDS: Losartan 50 MG Tab PO SCH (12:27)
[2022-10-02] MEDS: Warfarin 2 MG Tab PO SCH (16:02)
[2022-10-02] MEDS: Cephalexin 250 MG Cap PO SCH (18:15)
[2022-10-02] MEDS: Magnesium Oxide 400 MG Tab PO SCH (20:11)
[2022-10-02] MEDS: Loratadine 10 MG Tab PO SCH (20:11)
[2022-10-02] MEDS: EYE EYEBOTH SCH (20:12)
[2022-10-02] MEDS: Aspirin 81 MG Tab.EC PO SCH (20:12)
[2022-10-02] MEDS: Acetaminophen 500 MG Tab PO PRN (20:12)
[2022-10-02] MEDS: ROCKLATAN EYEBOTH SCH (20:12)
[2022-10-02] MEDS: traZODone 50 MG Tab PO SCH (20:13)
[2022-10-03] MEDS: Ferrous Sulfate 325 MG Tab PO SCH ×2 (08:54→17:51)
[2022-10-03] MEDS: Acetaminophen 500 MG Tab PO PRN (08:56)
[2022-10-03] MEDS: Furosemide 40 MG Tab PO SCH ×2 (08:57→17:51)
[2022-10-03] MEDS: Escitalopram 20 MG Tab PO SCH (08:57)
[2022-10-03] MEDS: Multivitamin Tab PO SCH (08:57)
[2022-10-03] MEDS: Metoprolol Succinate 50 MG Tab.ER PO SCH ×2 (08:58→20:04)
[2022-10-03] MEDS: Cyanocobalamin (Vitamin B12) 1,000 MCG Tab PO SCH (08:59)
[2022-10-03] MEDS: Gabapentin 600 MG Tab PO SCH ×4 (09:03→20:07)
[2022-10-03] MEDS: Allopurinol 100 MG Tab PO SCH (11:51)
[2022-10-03] MEDS: Ascorbic Acid 500 MG Tab PO SCH (11:52)
[2022-10-03] MEDS: Losartan 50 MG Tab PO SCH (12:16)
[2022-10-03] MEDS: Cholestyramine/Sucrose Powder 4 GM Packet PO SCH (13:23)
[2022-10-03] MEDS: Warfarin 2 MG Tab PO SCH (16:44)
[2022-10-03] MEDS: Cephalexin 250 MG Cap PO SCH (17:51)
[2022-10-03] MEDS: Acetaminophen/HYDROcodone 325-5 MG Tab PO PRN (18:08)
[2022-10-03] MEDS: ROCKLATAN EYEBOTH SCH (20:03)
[2022-10-03] MEDS: EYE EYEBOTH SCH (20:03)
[2022-10-03] MEDS: Loratadine 10 MG Tab PO SCH (20:04)
[2022-10-03] MEDS: traZODone 50 MG Tab PO SCH (20:04)
[2022-10-03] MEDS: Magnesium Oxide 400 MG Tab PO SCH (20:04)
[2022-10-03] MEDS: Aspirin 81 MG Tab.EC PO SCH (20:05)
[2022-10-04] MEDS: Ferrous Sulfate 325 MG Tab PO SCH ×2 (08:48→18:11)
[2022-10-04] MEDS: Escitalopram 20 MG Tab PO SCH (08:50)
[2022-10-04] MEDS: Gabapentin 600 MG Tab PO SCH ×4 (08:50→20:41)
[2022-10-04] MEDS: Furosemide 40 MG Tab PO SCH ×2 (08:50→18:11)
[2022-10-04] MEDS: Metoprolol Succinate 50 MG Tab.ER PO SCH ×2 (08:51→20:42)
[2022-10-04] MEDS: Cyanocobalamin (Vitamin B12) 1,000 MCG Tab PO SCH (08:51)
[2022-10-04] MEDS: Multivitamin Tab PO SCH (08:51)
[2022-10-04] MEDS: Cholestyramine/Sucrose Powder 4 GM Packet PO SCH (09:58)
[2022-10-04] MEDS: Ascorbic Acid 500 MG Tab PO SCH (12:17)
[2022-10-04] MEDS: Allopurinol 100 MG Tab PO SCH (12:18)
[2022-10-04] MEDS: Losartan 50 MG Tab PO SCH (12:18)
[2022-10-04] MEDS: Warfarin 3 MG Tab PO SCH (16:31)
[2022-10-04] MEDS: Cephalexin 250 MG Cap PO SCH (18:11)
[2022-10-04] MEDS: Acetaminophen/HYDROcodone 325-5 MG Tab PO PRN (18:11)
[2022-10-04] MEDS: traZODone 50 MG Tab PO SCH (20:41)
[2022-10-04] MEDS: Aspirin 81 MG Tab.EC PO SCH (20:42)
[2022-10-04] MEDS: Magnesium Oxide 400 MG Tab PO SCH (20:43)
[2022-10-04] MEDS: ROCKLATAN EYEBOTH SCH (20:43)
[2022-10-04] MEDS: Loratadine 10 MG Tab PO SCH (20:43)
[2022-10-04] MEDS: EYE EYEBOTH SCH (20:43)
[2022-10-05 05:57] VITALS: BP 159/52
[2022-10-05] MEDS: Ferrous Sulfate 325 MG Tab PO SCH (08:28)
[2022-10-05] MEDS: Escitalopram 20 MG Tab PO SCH (08:28)
[2022-10-05] MEDS: Furosemide 40 MG Tab PO SCH (08:28)
[2022-10-05] MEDS: Multivitamin Tab PO SCH (08:29)
[2022-10-05] MEDS: Cyanocobalamin (Vitamin B12) 1,000 MCG Tab PO SCH (08:30)
[2022-10-05 08:31] VITALS: PULSE 64
[2022-10-05] MEDS: Metoprolol Succinate 50 MG Tab.ER PO SCH (08:31)
[2022-10-05] MEDS: Gabapentin 600 MG Tab PO SCH (08:34)
[2022-10-05] MEDS: Cholestyramine/Sucrose Powder 4 GM Packet PO SCH (10:20)
== END 2022-10-05 10:25 | disposition home health service (06) | DRG 560 ==
LOC: FB.MS 16:05
PROVIDERS: ADMIT Family Medicine; ATTEND Family Medicine
DX: S42.301D Unspecified fracture of shaft of humerus, right arm, subsequent encounter for fracture with routine healing (principal); I13.0 Hypertensive heart and chronic kidney disease with heart failure and stage 1 through stage 4 chronic kidney disease, or unspecified chronic kidney disease; I50.32 Chronic diastolic (congestive) heart failure; X58.XXXD Exposure to other specified factors, subsequent encounter; D64.9 Anemia, unspecified; I25.10 Atherosclerotic heart disease of native coronary artery without angina pectoris; I50.9 Heart failure, unspecified; Z51.5 Encounter for palliative care; I25.2 Old myocardial infarction; E66.9 Obesity, unspecified; H91.90 Unspecified hearing loss, unspecified ear; H54.7 Unspecified visual loss; R32 Unspecified urinary incontinence; M19.90 Unspecified osteoarthritis, unspecified site; G89.29 Other chronic pain; Z96.653 Presence of artificial knee joint, bilateral; Z96.612 Presence of left artificial shoulder joint; N18.31 Chronic kidney disease, stage 3a; M54.9 Dorsalgia, unspecified; M79.7 Fibromyalgia; M10.9 Gout, unspecified; M81.0 Age-related osteoporosis without current pathological fracture; G62.9 Polyneuropathy, unspecified; F41.9 Anxiety disorder, unspecified; F32.A Depression, unspecified; Z86.19 Personal history of other infectious and parasitic diseases; Z98.49 Cataract extraction status, unspecified eye; Z90.89 Acquired absence of other organs; Z86.711 Personal history of pulmonary embolism; Z86.718 Personal history of other venous thrombosis and embolism; Z79.01 Long term (current) use of anticoagulants; Z88.0 Allergy status to penicillin; Z88.5 Allergy status to narcotic agent; Z88.8 Allergy status to other drugs, medicaments and biological substances; Z79.899 Other long term (current) drug therapy; Z79.82 Long term (current) use of aspirin; Z90.49 Acquired absence of other specified parts of digestive tract; Z90.710 Acquired absence of both cervix and uterus; Z95.5 Presence of coronary angioplasty implant and graft
CPT/HCPCS: 36415; 80053; 81001; 83735; 85018; 85025; 85610; 97110-GO; 97110-GP; 97116-GP; 97140-GP; 97161-GP; 97165-GO; 97530-GO; 97535-GO; A9270-GY

== ENCOUNTER 2022-10-06 18:08 | Emergency (ER) | payer MEDICARE ==
[2022-10-06 21:45] VITALS: BP 170/65; PULSE 58
== END 2022-10-06 20:00 | disposition home or self-care (01) ==
LOC: FB.ED 18:08
DX: L76.22 Postprocedural hemorrhage of skin and subcutaneous tissue following other procedure (principal); I25.10 Atherosclerotic heart disease of native coronary artery without angina pectoris; I10 Essential (primary) hypertension; Z88.0 Allergy status to penicillin; Z88.5 Allergy status to narcotic agent; Z88.6 Allergy status to analgesic agent; Z88.8 Allergy status to other drugs, medicaments and biological substances; Z79.899 Other long term (current) drug therapy; Z79.01 Long term (current) use of anticoagulants; Z90.49 Acquired absence of other specified parts of digestive tract
CPT/HCPCS: 36415; 85025; 85610; 99283

== ENCOUNTER 2023-09-16 12:35 | Emergency (ER) | payer MEDICARE ==
[2023-09-16 13:17] LABS: INR 2.24 (1.00-1.24); PROTHROMBIN TIME 22.6 sec (9.0-11.1)
[2023-09-16 13:44] LABS: BILIRUBIN,URINE NEGATIVE (NEGATIVE); GLUCOSE,URINE NORMAL (NORMAL); KETONES,URINE NEGATIVE (NEGATIVE); LEUKOCYTE ESTERASE,URINE NEGATIVE (NEGATIVE); NITRITE,URINE NEGATIVE (NEGATIVE); OCCULT BLOOD,URINE NEGATIVE (NEGATIVE); PROTEIN,URINE NEGATIVE (NEGATIVE); UROBILINOGEN,URINE NORMAL (NEGATIVE)
[2023-09-16 13:46] LABS: APPEARANCE,URINE CLEAR (CLEAR); BACTERIA,URINE RARE (NS); COLOR,URINE YELLOW (YELLOW); RBC,URINE 0-5 (0-5); SQUAMOUS EPITHELIAL CELLS,UR RARE (NS,R,O); WBC,URINE 0-5 (0-5)
[2023-09-16 21:14] VITALS: BP 169/64; PULSE 68
== END 2023-09-16 15:15 | disposition home or self-care (01) ==
LOC: FB.ED 12:35
DX: S16.1XXA Strain of muscle, fascia and tendon at neck level, initial encounter (principal); S00.03XA Contusion of scalp, initial encounter; I12.9 Hypertensive chronic kidney disease with stage 1 through stage 4 chronic kidney disease, or unspecified chronic kidney disease; N18.30 Chronic kidney disease, stage 3 unspecified; I25.10 Atherosclerotic heart disease of native coronary artery without angina pectoris; I25.2 Old myocardial infarction; M19.90 Unspecified osteoarthritis, unspecified site; E66.9 Obesity, unspecified; Z68.31 Body mass index [BMI] 31.0-31.9, adult; Z79.899 Other long term (current) drug therapy; Z79.82 Long term (current) use of aspirin; Z79.01 Long term (current) use of anticoagulants; Z88.0 Allergy status to penicillin; Z88.8 Allergy status to other drugs, medicaments and biological substances; Z88.5 Allergy status to narcotic agent; W18.30XA Fall on same level, unspecified, initial encounter; Y92.129 Unspecified place in nursing home as the place of occurrence of the external cause
CPT/HCPCS: 36415; 70450; 72125; 81001; 85610; 99284

== ENCOUNTER 2024-05-23 16:55 | Inpatient (IN) | payer MEDICARE ==
[2024-05-23 17:46] LABS: BASE EXCESS VENOUS,POC 6 mmol/L (-2 - 3+); PCO2 VENOUS,POC 52 mmHg (41-51)
[2024-05-23 17:52] LABS: BLOOD UREA NITROGEN,BUN 30 mg/dL (7-18); CALCIUM 9.1 mg/dL (8.6-10.2); CARBON DIOXIDE,CO2 31 mmol/L (21-32); CHLORIDE,CL 100 mmol/L (100-110); CREATININE 1.2 mg/dL (0.55-1.02); ESTIMATED GFR 43 mL/min (>60); GLUCOSE RANDOM 115 mg/dL (80-116); HEMATOCRIT 29.8 % (34.2-48.2); HEMOGLOBIN 9.9 g/dL (11.4-15.5); MEAN CORPUSCULAR HEMOGLOBIN 32.4 pg (23.9-33.9); MEAN CORPUSCULAR HGB CONC 33.4 g/dL (31.9-34.8); MEAN CORPUSCULAR VOLUME 96.8 fL (76.7-100.5); MEAN PLATELET VOLUME 7.9 fL (7.1-12.4); PLATELET COUNT,PLT 121 x10(3)uL (151-488); POTASSIUM,K 3.2 mmol/L (3.5-5.3); RED BLOOD CELL COUNT 3.07 x10(6)uL (3.60-5.20); SODIUM,NA 139 mmol/L (135-145); WHITE BLOOD CELL COUNT,WBC 6.2 x10-3/uL (3.0-10.3)
[2024-05-23 17:58] LABS: A/G RATIO 0.9; ALANINE AMINOTRANSFERASE,ALT 23 U/L (12-36); ALKALINE PHOSPHATASE 145 IU/L (56-112); ASPARTATE AMNIOTRANSFERASE,AST 31 IU/L (5-25); BILIRUBIN TOTAL 0.5 mg/dL (0.1-1.3); PROTEIN TOTAL,TP 6.5 g/dL (6.0-8.0)
[2024-05-23 18:03] LABS: LACTIC ACID 1.8 mmol/L (0.4-2.0)
[2024-05-23 18:08] LABS: TROPONIN I 32.3 pg/mL (4.0-60.3)
[2024-05-23 18:15] LABS: APPEARANCE,URINE CLEAR (CLEAR); BILIRUBIN,URINE NEGATIVE (NEGATIVE); COLOR,URINE YELLOW (YELLOW); GLUCOSE,URINE NORMAL (NORMAL); KETONES,URINE NEGATIVE (NEGATIVE); LEUKOCYTE ESTERASE,URINE MODERATE (NEGATIVE); NITRITE,URINE NEGATIVE (NEGATIVE); OCCULT BLOOD,URINE NEGATIVE (NEGATIVE); PROTEIN,URINE 100 mg/dL (NEGATIVE); UROBILINOGEN,URINE NORMAL (NEGATIVE)
[2024-05-23] MEDS ORDERED: Sodium Chloride 0.9% 1,000 ML IV SCH (18:15)
[2024-05-23 18:18] LABS: BACTERIA,URINE RARE (NS); EPITHELIAL CELLS,URINE OCCASIONAL; RBC,URINE 0-5 (0-5)
[2024-05-23] MEDS: cefTRIAXone 1 GM Vial IVPUSH SCH (18:35)
[2024-05-23] MEDS: Potassium Chloride 20 MEQ Tab.ER PO ONE (18:47)
[2024-05-23] MEDS: Acetaminophen 500 MG Tab PO ONE (18:48)
[2024-05-23] MEDS: Sodium Chloride 0.9% 1,000 ML IV SCH ×2 (18:48→21:23)
[2024-05-23 18:55] LABS: BAND PERCENT MAN 4 % (0-6); EOSINOPHILS PERCENT MAN 6 % (0-5); LYMPHOCYTES PERCENT MAN 9 % (13-37); MONOCYTES PERCENT MAN 5 % (4-12); SEG NEUTROPHILS PERCENT MAN 76 % (46-82)
[2024-05-23] MEDS ORDERED: Ondansetron 4 MG/2 ML SDV IV PRN (20:09)
[2024-05-23] MEDS ORDERED: Sennosides/Docusate Sodium 50-8.6 MG Tab PO PRN (20:09)
[2024-05-23] MEDS ORDERED: Triamcinolone Acetonide 0.5% Crm 15 GM Tube TOP PRN (20:22)
[2024-05-23] MEDS ORDERED: Diclofenac Sodium 1% Gel 100 GM Tube TOP PRN (20:22)
[2024-05-23] MEDS ORDERED: Polyethylene Glycol 3350 Powder 17 GM Packet PO PRN (20:22)
[2024-05-23] MEDS ORDERED: Naloxone 4 MG Nasal Spray NAS PRN (20:22)
[2024-05-23] MEDS: Azithromycin 500 MG in Sodium Chloride 0.9% 250 ML IV SCH (21:23)
[2024-05-23] MEDS: traZODone 50 MG Tab PO SCH (21:42)
[2024-05-23] MEDS: Aspirin 81 MG Tab.EC PO SCH (21:42)
[2024-05-23] MEDS: Apixaban 2.5 MG Tab PO SCH (21:42)
[2024-05-23] MEDS: Gabapentin 300 MG Cap PO SCH (21:42)
[2024-05-23] MEDS: Albuterol/Ipratropium 3.0-0.5 MG/3 ML Neb Soln NEB SCH (21:43)
[2024-05-23] MEDS: hydrALAZINE 25 MG Tab PO SCH (22:13)
[2024-05-23] MEDS: Metoprolol Succinate 50 MG Tab.ER PO SCH (23:18)
[2024-05-24] MEDS: Enoxaparin 40 MG/0.4 ML Syringe SUBCUT SCH (02:08)
[2024-05-24 06:50] LABS: BASOPHILS PERCENT AUTO 0.5 % (0.2-1.5); EOSINOPHILS ABSOLUTE AUTO 0.1 x10-3/uL (0.0-0.8); EOSINOPHILS PERCENT AUTO 1.3 % (0.6-8.1); HEMATOCRIT 23.7 % (34.2-48.2); HEMOGLOBIN 7.9 g/dL (11.4-15.5); LYMPHOCYTES ABSOLUTE AUTO 0.6 x10-3/uL (1.0-4.4); MEAN CORPUSCULAR HEMOGLOBIN 32.2 pg (23.9-33.9); MEAN CORPUSCULAR HGB CONC 33.6 g/dL (31.9-34.8); MONOCYTES ABSOLUTE AUTO 0.3 x10-3/uL (0.3-1.0); NEUTROPHILS ABSOLUTE AUTO 4.1 x10-3/uL (1.5-6.3); NEUTROPHILS PERCENT AUTO 81.2 % (30.8-76.2); PLATELET COUNT,PLT 81 x10(3)uL (151-488); RED BLOOD CELL COUNT 2.46 x10(6)uL (3.60-5.20); RED CELL DISTRIBUTION WIDTH 15.6 % (12.3-16.5); WHITE BLOOD CELL COUNT,WBC 5.1 x10-3/uL (3.0-10.3)
[2024-05-24 07:04] LABS: A/G RATIO 0.8; ALANINE AMINOTRANSFERASE,ALT 21 U/L (12-36); ALBUMIN 2.4 g/dL (2.9-4.5); ALKALINE PHOSPHATASE 109 IU/L (56-112); ASPARTATE AMNIOTRANSFERASE,AST 29 IU/L (5-25); BILIRUBIN TOTAL 0.3 mg/dL (0.1-1.3); BLOOD UREA NITROGEN,BUN 30 mg/dL (7-18); BUN/CREATININE RATIO 23.1 (9-20); CALCIUM 8.5 mg/dL (8.6-10.2); CARBON DIOXIDE,CO2 29 mmol/L (21-32); CHLORIDE,CL 101 mmol/L (100-110); CREATININE 1.3 mg/dL (0.55-1.02); ESTIMATED GFR 39 mL/min (>60); GLUCOSE RANDOM 92 mg/dL (80-116); POTASSIUM,K 3.7 mmol/L (3.5-5.3); PROTEIN TOTAL,TP 5.4 g/dL (6.0-8.0); SODIUM,NA 138 mmol/L (135-145)
[2024-05-24] MEDS ORDERED: Multivitamins with Iron/Calcium/Folic Acid/Minerals Tab PO SCH (09:00)
[2024-05-24] MEDS ORDERED: Ferrous Sulfate 325 MG Tab PO SCH (09:00)
[2024-05-24] MEDS: Doxycycline 100 MG Tab PO SCH (09:48)
[2024-05-24] MEDS: Allopurinol 100 MG Tab PO SCH (09:48)
[2024-05-24] MEDS: Ascorbic Acid 500 MG Tab PO SCH (09:48)
[2024-05-24] MEDS ORDERED: Losartan 25 MG Tab PO SCH (10:51)
[2024-05-24] MEDS: Escitalopram 20 MG Tab PO SCH (10:57)
[2024-05-24] MEDS: Cyanocobalamin (Vitamin B12) 1,000 MCG Tab PO SCH (10:57)
[2024-05-24] MEDS: Rosuvastatin 5 MG Tab PO SCH (10:57)
[2024-05-24] MEDS: Losartan 25 MG Tab PO SCH (11:05)
[2024-05-24] MEDS: Cholestyramine/Sucrose Powder 4 GM Packet PO SCH (15:09)
[2024-05-24] MEDS: Acetaminophen 325 MG Tab PO PRN (15:20)
[2024-05-24] MEDS: guaiFENesin/Dextromethorphan 100-10 MG/5 ML Soln 5 ML Cup PO PRN (15:21)
[2024-05-24] MEDS: traMADol 50 MG Tab PO PRN (23:36)
[2024-05-24] MEDS: Albuterol 0.083% 2.5 MG/3 ML Neb Soln NEB PRN (23:37)
[2024-05-24] MEDS: Losartan 100 MG Tab PO SCH (23:42)
[2024-05-25 06:45] LABS: BASOPHILS PERCENT AUTO 0.5 % (0.2-1.5); EOSINOPHILS ABSOLUTE AUTO 0.4 x10-3/uL (0.0-0.8); EOSINOPHILS PERCENT AUTO 5.5 % (0.6-8.1); HEMATOCRIT 26.3 % (34.2-48.2); HEMOGLOBIN 8.6 g/dL (11.4-15.5); LYMPHOCYTES ABSOLUTE AUTO 0.6 x10-3/uL (1.0-4.4); LYMPHOCYTES PERCENT AUTO 8.5 % (18.4-52.1); MEAN CORPUSCULAR HEMOGLOBIN 31.6 pg (23.9-33.9); MEAN CORPUSCULAR HGB CONC 32.7 g/dL (31.9-34.8); MEAN CORPUSCULAR VOLUME 96.6 fL (76.7-100.5); MEAN PLATELET VOLUME 8.3 fL (7.1-12.4); MONOCYTES ABSOLUTE AUTO 0.5 x10-3/uL (0.3-1.0); MONOCYTES PERCENT AUTO 6.9 % (4.4-15.7); NEUTROPHILS ABSOLUTE AUTO 5.3 x10-3/uL (1.5-6.3); NEUTROPHILS PERCENT AUTO 78.6 % (30.8-76.2); PLATELET COUNT,PLT 80 x10(3)uL (151-488); RED BLOOD CELL COUNT 2.73 x10(6)uL (3.60-5.20); RED CELL DISTRIBUTION WIDTH 15.5 % (12.3-16.5); WHITE BLOOD CELL COUNT,WBC 6.7 x10-3/uL (3.0-10.3)
[2024-05-25 07:00] LABS: A/G RATIO 0.7; ALANINE AMINOTRANSFERASE,ALT 27 U/L (12-36); ALBUMIN 2.5 g/dL (2.9-4.5); ALKALINE PHOSPHATASE 138 IU/L (56-112); ASPARTATE AMNIOTRANSFERASE,AST 38 IU/L (5-25); BILIRUBIN TOTAL 0.3 mg/dL (0.1-1.3); BLOOD UREA NITROGEN,BUN 23 mg/dL (7-18); CALCIUM 8.6 mg/dL (8.6-10.2); CARBON DIOXIDE,CO2 26 mmol/L (21-32); CHLORIDE,CL 96 mmol/L (100-110); EST CRCL DRUG DOSING (CG) 31.55 mL/min; ESTIMATED GFR 54 mL/min (>60); GLUCOSE RANDOM 90 mg/dL (80-116); MAGNESIUM 1.6 mg/dL (1.8-2.5); POTASSIUM,K 4.7 mmol/L (3.5-5.3); PROTEIN TOTAL,TP 5.9 g/dL (6.0-8.0); SODIUM,NA 131 mmol/L (135-145)
[2024-05-25] MEDS: Metoprolol Succinate 25 MG Tab.ER PO SCH (09:09)
[2024-05-25] MEDS: Cyanocobalamin (Vitamin B12) 1,000 MCG Tab PO SCH (09:10)
[2024-05-25] MEDS: Cyanocobalamin (Vitamin B12) 500 MCG Tab PO SCH (09:13)
[2024-05-25] MEDS: Magnesium Sulfate/Water 2 GM in Premix Bag 1 BAG IV ONE (09:25)
[2024-05-26 06:28] LABS: BASOPHILS PERCENT AUTO 0.3 % (0.2-1.5); EOSINOPHILS PERCENT AUTO 0.1 % (0.6-8.1); HEMATOCRIT 24.8 % (34.2-48.2); HEMOGLOBIN 8.4 g/dL (11.4-15.5); LYMPHOCYTES ABSOLUTE AUTO 0.7 x10-3/uL (1.0-4.4); LYMPHOCYTES PERCENT AUTO 10.7 % (18.4-52.1); MEAN CORPUSCULAR HEMOGLOBIN 32.3 pg (23.9-33.9); MEAN CORPUSCULAR HGB CONC 33.9 g/dL (31.9-34.8); MEAN CORPUSCULAR VOLUME 95.2 fL (76.7-100.5); MEAN PLATELET VOLUME 8.4 fL (7.1-12.4); MONOCYTES ABSOLUTE AUTO 0.5 x10-3/uL (0.3-1.0); NEUTROPHILS ABSOLUTE AUTO 5.4 x10-3/uL (1.5-6.3); NEUTROPHILS PERCENT AUTO 80.9 % (30.8-76.2); PLATELET COUNT,PLT 97 x10(3)uL (151-488); RED CELL DISTRIBUTION WIDTH 15.4 % (12.3-16.5); WHITE BLOOD CELL COUNT,WBC 6.6 x10-3/uL (3.0-10.3)
[2024-05-26 06:40] LABS: A/G RATIO 0.7; ALANINE AMINOTRANSFERASE,ALT 27 U/L (12-36); ALBUMIN 2.5 g/dL (2.9-4.5); ALKALINE PHOSPHATASE 142 IU/L (56-112); ASPARTATE AMNIOTRANSFERASE,AST 35 IU/L (5-25); BILIRUBIN TOTAL 0.6 mg/dL (0.1-1.3); BLOOD UREA NITROGEN,BUN 21 mg/dL (7-18); CALCIUM 9.3 mg/dL (8.6-10.2); CARBON DIOXIDE,CO2 27 mmol/L (21-32); CHLORIDE,CL 96 mmol/L (100-110); EST CRCL DRUG DOSING (CG) 31.55 mL/min; ESTIMATED GFR 54 mL/min (>60); GLUCOSE RANDOM 115 mg/dL (80-116); MAGNESIUM 1.7 mg/dL (1.8-2.5); POTASSIUM,K 4.5 mmol/L (3.5-5.3); PROTEIN TOTAL,TP 6.1 g/dL (6.0-8.0); SODIUM,NA 131 mmol/L (135-145)
[2024-05-26] MEDS ORDERED: Losartan 25 MG Tab PO SCH (09:00)
[2024-05-26] MEDS: Labetalol 20 MG/4 ML Syringe IVPUSH PRN (13:19)
[2024-05-26] MEDS: Magnesium Oxide 400 MG Tab PO ONE (14:37)
[2024-05-26] MEDS: Losartan 25 MG Tab PO ONE (14:37)
[2024-05-27 07:16] LABS: BASOPHILS PERCENT AUTO 0.5 % (0.2-1.5); EOSINOPHILS ABSOLUTE AUTO 0.1 x10-3/uL (0.0-0.8); HEMATOCRIT 22.6 % (34.2-48.2); HEMOGLOBIN 7.5 g/dL (11.4-15.5); LYMPHOCYTES ABSOLUTE AUTO 0.5 x10-3/uL (1.0-4.4); MEAN CORPUSCULAR HEMOGLOBIN 31.8 pg (23.9-33.9); MEAN CORPUSCULAR HGB CONC 33.3 g/dL (31.9-34.8); MEAN CORPUSCULAR VOLUME 95.5 fL (76.7-100.5); MEAN PLATELET VOLUME 8.7 fL (7.1-12.4); MONOCYTES ABSOLUTE AUTO 0.4 x10-3/uL (0.3-1.0); MONOCYTES PERCENT AUTO 8.7 % (4.4-15.7); NEUTROPHILS PERCENT AUTO 78.8 % (30.8-76.2); PLATELET COUNT,PLT 95 x10(3)uL (151-488); RED BLOOD CELL COUNT 2.37 x10(6)uL (3.60-5.20); RED CELL DISTRIBUTION WIDTH 15.4 % (12.3-16.5); WHITE BLOOD CELL COUNT,WBC 5.1 x10-3/uL (3.0-10.3)
[2024-05-27 07:21] LABS: A/G RATIO 0.6; ALANINE AMINOTRANSFERASE,ALT 23 U/L (12-36); ALBUMIN 2.2 g/dL (2.9-4.5); ALKALINE PHOSPHATASE 129 IU/L (56-112); ASPARTATE AMNIOTRANSFERASE,AST 27 IU/L (5-25); BILIRUBIN TOTAL 0.5 mg/dL (0.1-1.3); BLOOD UREA NITROGEN,BUN 23 mg/dL (7-18); CALCIUM 9.2 mg/dL (8.6-10.2); CARBON DIOXIDE,CO2 27 mmol/L (21-32); CHLORIDE,CL 98 mmol/L (100-110); EST CRCL DRUG DOSING (CG) 31.55 mL/min; ESTIMATED GFR 54 mL/min (>60); GLUCOSE RANDOM 97 mg/dL (80-116); MAGNESIUM 1.7 mg/dL (1.8-2.5); POTASSIUM,K 4.6 mmol/L (3.5-5.3); PROTEIN TOTAL,TP 5.7 g/dL (6.0-8.0); SODIUM,NA 132 mmol/L (135-145)
[2024-05-27] MEDS: Losartan 50 MG Tab PO SCH (08:21)
[2024-05-27] MEDS: VANCOmycin 1.75 GM/350 ML 1.75 GM in Premix Bag 1 BAG IV ONE (12:47)
[2024-05-27] MEDS: Sodium Chloride 0.9% 10 ML Syringe FLUSH PRN (13:09)
[2024-05-27] MEDS: Magnesium Oxide 400 MG Tab PO ONE (13:17)
[2024-05-27] MEDS: Labetalol 20 MG/4 ML Syringe IVPUSH ONE (14:34)
[2024-05-27] MEDS: hydrALAZINE 20 MG/ML SDV IVPUSH ONE (15:00)
[2024-05-27 16:23] LABS: HEMATOCRIT 25.6 % (34.2-48.2); HEMOGLOBIN 8.4 g/dL (11.4-15.5); MEAN CORPUSCULAR HEMOGLOBIN 31.5 pg (23.9-33.9); MEAN CORPUSCULAR HGB CONC 32.7 g/dL (31.9-34.8); MEAN CORPUSCULAR VOLUME 96.2 fL (76.7-100.5); MEAN PLATELET VOLUME 8.5 fL (7.1-12.4); PLATELET COUNT,PLT 120 x10(3)uL (151-488); RED BLOOD CELL COUNT 2.66 x10(6)uL (3.60-5.20); RED CELL DISTRIBUTION WIDTH 15.5 % (12.3-16.5); WHITE BLOOD CELL COUNT,WBC 7.6 x10-3/uL (3.0-10.3)
[2024-05-27 16:25] LABS: BASE EXCESS ARTERIAL,POC -3 mmol/L (-2 - 3+); HCO3 ARTERIAL,POC 21 mmol/L (21-28); O2 SATURATION ARTERIAL,POC 94.7 % (94-98); PO2 ARTERIAL,POC 73 mmHg (83-108)
[2024-05-27 16:25] LABS: BLOOD UREA NITROGEN,BUN 25 mg/dL (7-18); BUN/CREATININE RATIO 19.2 (9-20); CALCIUM 8.6 mg/dL (8.6-10.2); CARBON DIOXIDE,CO2 24 mmol/L (21-32); CHLORIDE,CL 95 mmol/L (100-110); CREATININE 1.3 mg/dL (0.55-1.02); EST CRCL DRUG DOSING (CG) 24.27 mL/min; ESTIMATED GFR 39 mL/min (>60); GLUCOSE RANDOM 94 mg/dL (80-116); POTASSIUM,K 4.6 mmol/L (3.5-5.3); SODIUM,NA 129 mmol/L (135-145)
[2024-05-27 16:31] LABS: A/G RATIO 0.6; ALANINE AMINOTRANSFERASE,ALT 21 U/L (12-36); ALBUMIN 2.1 g/dL (2.9-4.5); ALKALINE PHOSPHATASE 156 IU/L (56-112); ASPARTATE AMNIOTRANSFERASE,AST 30 IU/L (5-25); BILIRUBIN TOTAL 0.7 mg/dL (0.1-1.3); PROTEIN TOTAL,TP 5.4 g/dL (6.0-8.0)
[2024-05-27 16:33] LABS: BAND PERCENT MAN 3 % (0-6); LYMPHOCYTES PERCENT MAN 2 % (13-37); SEG NEUTROPHILS PERCENT MAN 95 % (46-82)
[2024-05-27] MEDS: Iopamidol 755 Mg/ML 100 ML Bottle IV SCH (16:33)
[2024-05-27] MEDS: Morphine 2 MG/ML SYRINGE IVPUSH ONE (16:47)
[2024-05-27] MEDS: Cefepime 1 GM Vial IVPUSH SCH (16:52)
[2024-05-27] MEDS: Furosemide 20 MG/2 ML VIAL IVPUSH ONE (17:07)
[2024-05-28 06:43] LABS: HEMOGLOBIN 7.4 g/dL (11.4-15.5); MEAN CORPUSCULAR HEMOGLOBIN 31.9 pg (23.9-33.9); MEAN CORPUSCULAR HGB CONC 33.6 g/dL (31.9-34.8); PLATELET COUNT,PLT 123 x10(3)uL (151-488); RED BLOOD CELL COUNT 2.31 x10(6)uL (3.60-5.20); RED CELL DISTRIBUTION WIDTH 15.5 % (12.3-16.5); WHITE BLOOD CELL COUNT,WBC 7.5 x10-3/uL (3.0-10.3)
[2024-05-28 06:44] LABS: BLOOD UREA NITROGEN,BUN 28 mg/dL (7-18); BUN/CREATININE RATIO 18.7 (9-20); CARBON DIOXIDE,CO2 24 mmol/L (21-32); CHLORIDE,CL 97 mmol/L (100-110); CREATININE 1.5 mg/dL (0.55-1.02); EST CRCL DRUG DOSING (CG) 21.03 mL/min; ESTIMATED GFR 33 mL/min (>60); GLUCOSE RANDOM 95 mg/dL (80-116); POTASSIUM,K 5.2 mmol/L (3.5-5.3); SODIUM,NA 130 mmol/L (135-145)
[2024-05-28 06:54] LABS: HEMATOCRIT 21.9 % (34.2-48.2)
[2024-05-28 07:26] LABS: LYMPHOCYTES PERCENT MAN 4 % (13-37); MONOCYTES PERCENT MAN 1 % (4-12); SEG NEUTROPHILS PERCENT MAN 95 % (46-82)
[2024-05-28] MEDS ORDERED: Levofloxacin/Dextrose 5%-Water 750 MG in Premix Bag 1 BAG IV SCH (10:00)
[2024-05-28] MEDS: Levofloxacin/Dextrose 5%-Water 750 MG in Premix Bag 1 BAG IV SCH (10:09)
[2024-05-28] MEDS: VANCOmycin 1 GM/200 ML 1 GM in Premix Bag 1 BAG IV SCH (11:48)
[2024-05-29 06:44] LABS: HEMATOCRIT 22.1 % (34.2-48.2); HEMOGLOBIN 7.4 g/dL (11.4-15.5); MEAN CORPUSCULAR HGB CONC 33.6 g/dL (31.9-34.8); MEAN CORPUSCULAR VOLUME 95.1 fL (76.7-100.5); MEAN PLATELET VOLUME 8.7 fL (7.1-12.4); PLATELET COUNT,PLT 143 x10(3)uL (151-488); RED BLOOD CELL COUNT 2.32 x10(6)uL (3.60-5.20); RED CELL DISTRIBUTION WIDTH 15.4 % (12.3-16.5); WHITE BLOOD CELL COUNT,WBC 5.9 x10-3/uL (3.0-10.3)
[2024-05-29 06:58] LABS: A/G RATIO 0.6; ALANINE AMINOTRANSFERASE,ALT 20 U/L (12-36); ALKALINE PHOSPHATASE 141 IU/L (56-112); ASPARTATE AMNIOTRANSFERASE,AST 26 IU/L (5-25); BILIRUBIN TOTAL 0.4 mg/dL (0.1-1.3); BLOOD UREA NITROGEN,BUN 32 mg/dL (7-18); BUN/CREATININE RATIO 16.8 (9-20); CALCIUM 8.9 mg/dL (8.6-10.2); CARBON DIOXIDE,CO2 24 mmol/L (21-32); CHLORIDE,CL 95 mmol/L (100-110); CREATININE 1.9 mg/dL (0.55-1.02); ESTIMATED GFR 25 mL/min (>60); GLUCOSE RANDOM 93 mg/dL (80-116); MAGNESIUM 1.9 mg/dL (1.8-2.5); POTASSIUM,K 5.1 mmol/L (3.5-5.3); PROTEIN TOTAL,TP 5.4 g/dL (6.0-8.0); SODIUM,NA 129 mmol/L (135-145); VANCOMYCIN TROUGH 23.7 ug/mL (<0.8)
[2024-05-29 07:32] LABS: EOSINOPHILS PERCENT MAN 1 % (0-5); LYMPHOCYTES PERCENT MAN 5 % (13-37); MONOCYTES PERCENT MAN 1 % (4-12); SEG NEUTROPHILS PERCENT MAN 93 % (46-82)
[2024-05-29 13:38] LABS: BILIRUBIN,URINE NEGATIVE (NEGATIVE); GLUCOSE,URINE NORMAL (NORMAL); KETONES,URINE NEGATIVE (NEGATIVE); LEUKOCYTE ESTERASE,URINE NEGATIVE (NEGATIVE); NITRITE,URINE NEGATIVE (NEGATIVE); OCCULT BLOOD,URINE NEGATIVE (NEGATIVE); PROTEIN,URINE NEGATIVE (NEGATIVE); UROBILINOGEN,URINE NORMAL (NEGATIVE)
[2024-05-29 13:41] LABS: APPEARANCE,URINE CLEAR (CLEAR); COLOR,URINE YELLOW (YELLOW); WBC,URINE 0-5 (0-5)
[2024-05-29 13:42] LABS: BACTERIA,URINE OCCASIONAL (NS); SQUAMOUS EPITHELIAL CELLS,UR RARE (NS,R,O)
[2024-05-29 16:09] VITALS: BP 132/66; PULSE 69
[2024-05-29] MEDS ORDERED: tiZANidine 4 MG Tab PO SCH (21:00)
[2024-05-29 21:43] LABS: LEGIONELLA PNEUMOPHILA AG,URN Negative (Negative)
[2024-05-30] MEDS ORDERED: Levofloxacin/Dextrose 5%-Water 500 MG in Premix Bag 1 BAG IV SCH (10:00)
[2024-05-30 17:14] LABS: MRSA DETECTION BY PCR Not Detected
[2024-05-31 02:39] LABS: CREATININE, URINE - PER VOLUME 72 mg/dL; HOURS COLLECTED Random hr; SODIUM, URINE - PER VOLUME <20 mmol/L; TOTAL VOLUME Random mL
[2024-05-31 21:57] LABS: CREATININE,URINE - PER VOLUME 72 mg/dL; HOURS COLLECTED Random hr; TOTAL VOLUME Random mL
== END 2024-05-29 18:00 | DRG 193 ==
LOC: FB.ED 16:55 → FB.MS 20:09
PROVIDERS: ADMIT Emergency Medicine; ATTEND Internal Medicine
DX: J18.9 Pneumonia, unspecified organism (principal); J96.91 Respiratory failure, unspecified with hypoxia; J80 Acute respiratory distress syndrome; N17.9 Acute kidney failure, unspecified; E87.6 Hypokalemia; N30.00 Acute cystitis without hematuria; N39.0 Urinary tract infection, site not specified; M1A.20X0 Drug-induced chronic gout, unspecified site, without tophus (tophi); I13.0 Hypertensive heart and chronic kidney disease with heart failure and stage 1 through stage 4 chronic kidney disease, or unspecified chronic kidney disease; I50.32 Chronic diastolic (congestive) heart failure; Z47.89 Encounter for other orthopedic aftercare; Z16.39 Resistance to other specified antimicrobial drug; E22.2 Syndrome of inappropriate secretion of antidiuretic hormone; B95.2 Enterococcus as the cause of diseases classified elsewhere; Z79.899 Other long term (current) drug therapy; Z79.82 Long term (current) use of aspirin; I25.10 Atherosclerotic heart disease of native coronary artery without angina pectoris; I27.20 Pulmonary hypertension, unspecified; E83.42 Hypomagnesemia; G89.29 Other chronic pain; M54.50 Low back pain, unspecified; H40.9 Unspecified glaucoma; N18.31 Chronic kidney disease, stage 3a; E86.0 Dehydration; Z96.611 Presence of right artificial shoulder joint; F41.9 Anxiety disorder, unspecified; F32.A Depression, unspecified; D63.1 Anemia in chronic kidney disease; Z79.01 Long term (current) use of anticoagulants; Z90.49 Acquired absence of other specified parts of digestive tract; Z88.5 Allergy status to narcotic agent; Z88.0 Allergy status to penicillin; Z88.1 Allergy status to other antibiotic agents; Z88.6 Allergy status to analgesic agent; Z88.8 Allergy status to other drugs, medicaments and biological substances; Z95.5 Presence of coronary angioplasty implant and graft; Z86.718 Personal history of other venous thrombosis and embolism; I25.2 Old myocardial infarction
CPT/HCPCS: 36415; 71045; 80053; 81001; 83605; 83735; 83880; 84484; 85025; 87040 ×2; 87086; 87088; 87186; 93005; 93010; 99285; A9270 ×2; J0696; J3475; J7030; U0002; 51701; 71275; 80048; 80202; 82570; 82803; 84300; 87070; 87205; 87449; 87486; 87581; 87633; 87641; 87798; 94150; 94640; 97161-GP; 97165-GO; 97530-GO; 99222; 99232; 99238; C1758; J0360; J0456; J0692; J1920; J1940; J1956; J3370; J3490; J7050; J7620; Q9967

== ENCOUNTER 2024-06-03 10:46 | Inpatient (IN) | payer MEDICARE ==
[2024-06-03] MEDS ORDERED: traMADol 50 MG Tab PO PRN (14:32)
[2024-06-03] MEDS ORDERED: Naloxone 4 MG Nasal Spray NAS PRN (14:32)
[2024-06-03] MEDS ORDERED: guaiFENesin 600 MG Tab.ER PO PRN (14:32)
[2024-06-03] MEDS ORDERED: Diclofenac Sodium 1% Gel 100 GM Tube TOP PRN (14:32)
[2024-06-03] MEDS ORDERED: Albuterol 6.7 GM Inhaler INH PRN (14:32)
[2024-06-03] MEDS ORDERED: guaiFENesin/Dextromethorphan 100-10 MG/5 ML Soln 5 ML Cup PO PRN (14:32)
[2024-06-03] MEDS ORDERED: Triamcinolone Acetonide 0.5% Crm 15 GM Tube TOP PRN (14:32)
[2024-06-03] MEDS: Denosumab 60 MG/1 ML Syringe SUBCUT SCH (15:51)
[2024-06-03] MEDS: Bumetanide 1 MG Tab PO SCH (15:56)
[2024-06-03] MEDS: Cholestyramine/Sucrose Powder 4 GM Packet PO SCH (17:29)
[2024-06-03] MEDS: Gabapentin 300 MG Cap PO SCH (17:29)
[2024-06-03] MEDS: Nystatin Susp 100,000 Unit/ML 5 ML UD Cup PO SCH (17:29)
[2024-06-03] MEDS: hydrALAZINE 25 MG Tab PO SCH (20:36)
[2024-06-03] MEDS: Apixaban 2.5 MG Tab PO SCH (20:36)
[2024-06-03] MEDS: Metoprolol Succinate 25 MG Tab.ER PO SCH (20:37)
[2024-06-03] MEDS: traZODone 50 MG Tab PO SCH (20:37)
[2024-06-03] MEDS: tiZANidine 4 MG Tab PO SCH (20:38)
[2024-06-03] MEDS: Latanoprost 0.005% Ophth Soln 2.5 ML Bottle EYEBOTH SCH (20:38)
[2024-06-04] MEDS: Losartan 50 MG Tab PO SCH (08:14)
[2024-06-04] MEDS: Rosuvastatin 5 MG Tab PO SCH (08:14)
[2024-06-04] MEDS: Levofloxacin 750 MG Tab PO ONE (08:15)
[2024-06-04] MEDS: Multivitamin Tab PO SCH (08:15)
[2024-06-04] MEDS: Aspirin 81 MG Tab.EC PO SCH (08:15)
[2024-06-04] MEDS: Escitalopram 20 MG Tab PO SCH (08:15)
[2024-06-04] MEDS: Ascorbic Acid 500 MG Tab PO SCH (08:15)
[2024-06-04] MEDS: Allopurinol 100 MG Tab PO SCH (08:16)
[2024-06-04] MEDS: Acetaminophen 325 MG Tab PO PRN (19:21)
[2024-06-05] MEDS: Ferrous Sulfate 325 MG Tab PO SCH (08:01)
[2024-06-05] MEDS: Polyethylene Glycol 3350 Powder 17 GM Packet PO PRN (17:49)
[2024-06-11 06:31] VITALS: BP 170/56; PULSE 69
== END 2024-06-11 10:45 | disposition home or self-care (01) | DRG 947 ==
LOC: FB.MS 12:37
PROVIDERS: ADMIT Internal Medicine; ATTEND Family Medicine
DX: R53.1 Weakness (principal); J12.3 Human metapneumovirus pneumonia; I50.32 Chronic diastolic (congestive) heart failure; I13.0 Hypertensive heart and chronic kidney disease with heart failure and stage 1 through stage 4 chronic kidney disease, or unspecified chronic kidney disease; D50.9 Iron deficiency anemia, unspecified; E66.9 Obesity, unspecified; F41.0 Panic disorder [episodic paroxysmal anxiety]; F32.A Depression, unspecified; G62.9 Polyneuropathy, unspecified; G89.29 Other chronic pain; M54.9 Dorsalgia, unspecified; N18.30 Chronic kidney disease, stage 3 unspecified; M19.90 Unspecified osteoarthritis, unspecified site; R53.81 Other malaise; I25.2 Old myocardial infarction; Z88.0 Allergy status to penicillin; Z88.5 Allergy status to narcotic agent; Z88.8 Allergy status to other drugs, medicaments and biological substances; Z88.6 Allergy status to analgesic agent; Z79.82 Long term (current) use of aspirin; Z79.01 Long term (current) use of anticoagulants; Z79.899 Other long term (current) drug therapy; Z90.49 Acquired absence of other specified parts of digestive tract; Z90.89 Acquired absence of other organs; Z98.890 Other specified postprocedural states; Z95.5 Presence of coronary angioplasty implant and graft; Z86.718 Personal history of other venous thrombosis and embolism
CPT/HCPCS: 97110-GO; 97110-GP; 97165-GO; 97530-GO; 97530-GP; 97535-GO; 99305; 99316; A9270-GY